=== PATIENT | female | born 1945 | race Caucasian/White ===

== ENCOUNTER → 2023-11-12 09:14 | Outpatient (REF) | payer OTHER, SELFPAY | LOC: HWRAD 09:14 | PROVIDERS: ATTENDING PHYSICIAN Obstetrics & Gynecology; FAMILY PHYSICIAN Family Medicine | DX: R19.00 Intra-abdominal and pelvic swelling, mass and lump, unspecified site (principal); K62.9 Disease of anus and rectum, unspecified | CPT/HCPCS: 74177; Q9967 ==

== ENCOUNTER → 2024-02-18 13:41 | Outpatient (REF) | payer OTHER, SELFPAY | LOC: RAD 13:41 | PROVIDERS: ATTENDING PHYSICIAN Family Medicine | DX: E66.01 Morbid (severe) obesity due to excess calories (principal); M25.469 Effusion, unspecified knee | CPT/HCPCS: 73564 ==

== ENCOUNTER → 2024-06-28 09:20 | Outpatient (REF) | payer OTHER, SELFPAY | LOC: RAD 09:20 | PROVIDERS: ATTENDING PHYSICIAN Family Medicine | DX: H53.9 Unspecified visual disturbance (principal) | CPT/HCPCS: 93880 ==

== ENCOUNTER 2024-06-29 00:32 | Inpatient (IN) | payer OTHER, SELFPAY ==
[2024-06-28 19:14] VITALS: BMI 37.5
[2024-06-28 19:17] VITALS: BP 125/77
[2024-06-28 19:55] LABS: % Basophils 0.6 % (0-2); % Eosinophils 1.7 % (0-6); % Immature Granulocytes 0.3 % (0-0.5); % Lymphocytes 18.9 % (20.5-51.1); % Monocytes 5.9 % (1.7-9.3); % Neutrophils 72.6 % (42.2-75.2); Absolute Basophils 0.1 10^3/uL (0-0.2); Absolute Eosinophils 0.2 10^3/uL (0-0.7); Absolute Lymphocytes 1.6 10^3/uL (1.2-3.4); Absolute Monocytes 0.5 10^3/uL (0.1-0.6); Absolute Neutrophils 6.3 10^3/uL (1.4-6.5); Hematocrit 42.5 % (37.0-47.0); Hemoglobin 14.2 g/dL (12.0-16.0); Mean Corp Hgb Conc. 33.4 g/dL (33.0-37.0); Mean Corpuscular Hgb 30.9 pg (27.0-31.0); Mean Corpuscular Volume 92.4 fL (81.0-99.0); Mean Platelet Volume 10.1 fL (7.4-10.4); Nucleated Red Blood Cells % 0 %; Platelet Count 261 10^3/uL (130-400); Red Cell Dist. Width 13.7 % (11.5-14.5); White Blood Cell Count 8.7 10^3/uL (4.8-10.8)
[2024-06-28 20:07] LABS: ALT (SGPT) 17 U/L (0-35); AST (SGOT) 22 U/L (14-36); Albumin 4.5 g/dl (3.5-5.0); Alkaline Phosphatase 58 U/L (38-126); Blood Urea Nitrogen 14 mg/dl (7-17); Calcium 9.5 mg/dl (8.4-10.2); Carbon Dioxide 25 mmol/L (22-30); Chloride 102 mmol/L (98-107); Glucose 145 mg/dl (70-99); Potassium 4.5 mmol/L (3.5-5.1); Sodium 141 mmol/L (135-145); Total Bilirubin 0.9 mg/dl (0.2-1.3); Total Protein 7.2 g/dl (6.3-8.2); eGFR > 60.00
[2024-06-28 20:12] LABS: Troponin I < 0.012 ng/ml
[2024-06-28 20:15] VITALS: BP 135/73
--- NOTE | 2024-06-28 20:55 | ED.GENMED ---
History of Present Illness
General
Chief Complaint: Cardiac Symptoms
Source: patient
Time Seen by Provider: 06/28/24 20:15
History of Present Illness
History of Present Illness:
79-year-old female presents to the emergency room for evaluation after having an abnormal imaging test performed as an outpatient. Patient had gone to her primary care doctor for evaluation after having an episode of vision loss in her right eye 1
week ago. Symptoms improved after a while and she has had no further recurrence. The event happened while she was at a [employer] and the pharmacist there advised her to seek care however she did not. She followed up with her primary care doctor
who ordered at urgent ultrasound of her carotid arteries. 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
Past History
Past History
ED Past Medical History: HTN, Hypercholesterolemia, Hypothyroidism and Other (TIA,)
ED Past Surgical History: Other (thyroid surgery)
Social History
Tobacco: Former smoker
Alcohol: None
Living: with family
Employment: Employed
Family History
Family History: CAD and Other (Breast cancer)
Phy Exam
Physical Exam
Physical Exam:
General: Awake, Alert, Oriented X3. No acute distress.
Vitals: unremarkable
Head: Atraumatic
Eyes: Pupils equal, EOMI
Throat: Airway intact, no exudates
Neck: Trachea midline
Lungs: Clear and equal b/l
Heart: Regular rate, no murmurs
Abd: Soft, Nontender, No pulsatile mass
Neuro: Cranial nerves intact, muscle strength equal bilaterally, cerebellar exam normal
Skin: Warm, dry, no rash
Extremities: pulses equal b/l, no edema
Course
Orders/Labs/Results
Orders:
Orders
06/28/24 19:21
Electrocardiogram (*1) Urgent
Reason for Study: Chest Pain
EKG- Treatment ONCE
06/28/24 19:40
Complete Blood Count/With Diff Urgent
Comprehensive Metabolic Panel Urgent
Troponin I Urgent
06/28/24 22:02
CT Angio Neck W/Wo Iv Contrast [CT Neck Angio W/wo Iv Contrast] Urgent
Comment:
Reason For Exam: amaurosis fugax
06/29/24 00:00
Acetaminophen [Tylenol] 1,000 mg PO NOW STA
06/29/24 00:01
Heparin Protocol- PTT Orders As Directed
PTT per Heparin protocol: -Obtain CBC and baseline PTT - if not already collected.
-Obtain PTT 6 hours from start of infusion. Then, every 6 hours until 2 consecutive
PTT's are therapeutic. Then, PTT Daily.
-With each rate change, obtain PTT every 6 hours until 2 consecutive PTT's are
therapeutic. Then, PTT Daily.
Notify MD As Directed
Notify physician if: PTT is greater than or equal to 200.
06/29/24 00:02
Admit/Transfer Patient As Directed
Co-Sign Provider:
Level of Care: Inpatient admission
Assign to:: Telemetry
Physician / Group: hospitalist
Diagnosis: inominate artery occlusion
Reason for Telemetry: CVA/TIA
Date to Stop Telemetry: 07/02/24
Time to Stop Telemetry: 11:00
Reason for Hospitalization: vascular occlusion
Expected length of stay greater than two midnights?: Yes
ELOS- Estimated Length of Stay in days: 2
I certify the patient meets the requirements for IP care: Yes
06/29/24 00:03
PRN Pain Medication Management As Directed
May give lesser potent ordered pain med per pt: Yes
preference::
Protocol:: Medication orders for pain may be administered in a
manner that supports deferring to patient preference
when the pt is:
- Requesting an ordered lesser potent pain medication.
Least to most potent pain medications are defined
as: acetaminophen < NSAID < tramadol < opioids
(morphine, oxycodone, hydromorphone).
- Requesting a lesser dose of the same medication IF
ORDERED.
- Requesting a less intrusive route of administration
if both routes are prescribed by the provider (PO <
IV).
06/29/24 00:05
Code Status As Directed
Resuscitation Status: Full Code
06/29/24 00:08
PTT Urgent
Comment: Obtain baseline before beginning heparin infusion if not already collected
06/29/24 00:15
Heparin 79263 Units/250 ml 25,000 units in 250 ml IV PER PROTOCOL
Weight to be used for heparin protocol in kilograms (kg):: 89.9
Protocol:: Vascular Surgery
PTT Goal Range to be used:: PTT 73 to 111 seconds
Order type:: Initial
INITIAL Infusion Dose (UNITS/KG/hr) & then follow protocol:: 18 units/kg/hr
Infusion Dose in UNITS/hr & then follow protocol (UNITS/hr):: 1,600
INFUSION RATE in mL/hr & then follow protocol (mL/hr):: 16
PTT less than or equal to 64 seconds:: Notify Ordering Provider. obtain orders for rate increase &
possible bolus
PTT 64.1 to 72.9 seconds:: Increase rate by 100 units/hr (+ 1 mL/hr)
PTT 73 to 111 seconds:: Target Range. No change in rate.
PTT 111.1 to 130.9 seconds:: Decrease rate by 100 units/hr (- 1 mL/hr)
PTT 131 to 199.9 seconds:: HOLD for 1 hour. Then decrease rate by 200 units/hr (- 2 mL/hr)
PTT greater than or equal to 200 seconds:: STOP INFUSION. Notify Ordering provider to obtain further orders.
Lab follow-up:: Each change, PTT q6h until 2 consecutive are therapeutic. Then PTT
daily.
06/29/24 01:43
Acetaminophen [Tylenol] 650 mg PO Q4HPRN PRN
Bisacodyl [Dulcolax] 10 mg RECTAL [id number] PRN
Docusate W/Senna [Senokot-S] 1 tablet PO BIDPRN PRN
Ondansetron Injectable [Zofran] 4 mg IV Q6HPRN PRN
Polyethylene Glycol Powder [Miralax] 17 grams PO DAILYPRN PRN
06/29/24 01:43
Vascular Surgery Consult Routine
Consulting Provider: Randy Parra III
Was physician already notified: Yes
Reason for consult: inominate artery occlusion
Heparin Protocol- PTT Orders As Directed
PTT per Heparin protocol: -Obtain CBC and baseline PTT - if not already collected.
-Obtain PTT 6 hours from start of infusion. Then, every 6 hours until 2 consecutive
PTT's are therapeutic. Then, PTT Daily.
-With each rate change, obtain PTT every 6 hours until 2 consecutive PTT's are
therapeutic. Then, PTT Daily.
Activity As Directed
Activity Level: With Assistance
Notify MD As Directed
Notify physician if: PTT is greater than or equal to 200.
Vital Signs As Directed
Frequency: Per unit guidelines
06/29/24 06:01
Basic Metabolic Panel IN AM
Magnesium IN AM
06/29/24 08:00
Levothyroxine [Synthroid] 50 mcg PO DAILY
06/29/24 18:00
Sertraline HCl [Zoloft] 100 mg PO QPM
06/29/24 22:00
Rosuvastatin Calcium [Crestor] 20 mg PO HS
07/01/24 06:00
Complete Blood Count/No Diff Q2D
Comment: Notify MD if platelet count is <130,000 or decreases by 50% from baseline
07/02/24 11:00
DC Protocol for Telemetry ONCE
07/03/24 06:00
Complete Blood Count/No Diff Q2D
Comment: Notify MD if platelet count is <130,000 or decreases by 50% from baseline
07/05/24 06:00
Complete Blood Count/No Diff Q2D
Comment: Notify MD if platelet count is <130,000 or decreases by 50% from baseline
07/07/24 06:00
Complete Blood Count/No Diff Q2D
Comment: Notify MD if platelet count is <130,000 or decreases by 50% from baseline
07/09/24 06:00
Complete Blood Count/No Diff Q2D
Comment: Notify MD if platelet count is <130,000 or decreases by 50% from baseline
07/11/24 06:00
Complete Blood Count/No Diff Q2D
Comment: Notify MD if platelet count is <130,000 or decreases by 50% from baseline
07/13/24 06:00
Complete Blood Count/No Diff Q2D
Comment: Notify MD if platelet count is <130,000 or decreases by 50% from baseline
07/15/24 06:00
Complete Blood Count/No Diff Q2D
Comment: Notify MD if platelet count is <130,000 or decreases by 50% from baseline
Abnormal Lab Results
06/28/24
19:40
Lymphocytes % 18.9 L %
(20.5-51.1)
Glucose 145 H mg/dl
(70-99)
06/28/24 19:40
06/28/24 20:54
Vital Signs
Initial and Last Documented VS:
Initial Vital Signs
Temp Pulse Resp BP Pulse Ox
98 F 96 16 125/77 98
06/28/24 19:17 06/28/24 19:17 06/28/24 19:17 06/28/24 19:17 06/28/24 19:17
Last Documented Vital Signs
Temp Pulse Resp BP Pulse Ox
97.9 F 65 16 110/56 94
06/29/24 11:13 06/29/24 11:13 06/29/24 11:13 06/29/24 11:13 06/29/24 11:13
MDM/Problems Addressed
Differential Diagnosis Includes:
Symptomatic carotid/innominate artery stenosis, giant cell arteritis, microvascular disease
MDM/Problems Addressed:
Patient had outpatient ultrasound performed due to visual changes of the right eye. This study was highly suggestive of critical stenosis. A CTA was performed here in the emergency room after consultation with vascular surgery. Vascular will
review the images. In the meantime we will start heparin in case the patient requires intervention. Oral anticoagulation will be held. Will start heparin without a bolus as she has been compliant with her Eliquis.
*Radiology
Radiology exam reviewed: radiology read reviewed
*Pulse Oximetry
Patient hypoxic: no
*EKG
Interpreted by ED Provider?: Yes
Heart Rate: 81
Rate: normal
Rhythm: sinus
Interval: first degree heart block
QRS Pattern: left bundle branch block
Ischemia: non-specific ST changes
*[employer] Interpretation
Rate: normal
Interpretation: abnormal
Rhythm: sinus
*Critical Care Note
Total Time (30-74mins, 75-104mins- exclusive of procedures): Not Applicable
Data Reviewed
Review of Other/Old Records Reveals: Radiology Studies (outpt u/s)
ED Attending Note
-
Portions of this chart may have been created with voice recognition software.� Occasional wrong word or��sound alike� substitutions may have occurred due to the inherent limitations of voice recognition software.
Discharge Plan
Departure
Patient Disposition: Admit
Date of Disposition: 06/28/24
Time of Disposition: 23:04
Presentation/result/management discussed w/ accepting MD/DO: Hospitalist
Condition: Fair
Discharge Problem:
Amaurosis fugax of right eye
Interventions
Interventions:
*Risk Screen - Suicide Last Done: 06/28/24 19:17
*General Assessment Last Done: 06/28/24 20:26
*Neglect/Abuse Screening Last Done: 06/28/24 19:17
ED- Fall Risk Assessment Last Done: 06/29/24 01:38
*ED COVID-19 Vaccine History Last Done: 06/28/24 20:18
*Nursing Disposition Last Done: 06/29/24 01:39
ED- Pulmonary Assessment Last Done: 06/28/24 20:19
ED- Cardiac Assessment Last Done: 06/28/24 20:19
Discharge Date and Time
Discharge Date/Time: 06/29/24 01:40
[2024-06-28 21:00] VITALS: BP 130/80
[2024-06-28 22:00] VITALS: BP 122/74
[2024-06-28 23:15] VITALS: BP 144/116
[2024-06-28 23:17] VITALS: BP 139/72
--- NOTE | 2024-06-28 23:49 | HPS.HSE ---
Family Physician
-
Family Physician: Nelson Hilton
Chief Complaint
-
Right eye amaurosis fugax
History of Present Illness
Is an 79-year-old female who has a past medical history that is significant for paroxysmal atrial fibrillation on anticoagulation with apixaban, hypothyroidism status post partial thyroidectomy, status post recent bladder surgery 1 year ago, obesity
and hyperlipidemia who presents to the emergency department following evaluation for vision changes.
Patient reported that 1 week ago he had an episode of transient vision loss. She reported a sensation of a great coughing covering her right eye for few minutes before resolving. Since resolving she has not had recurrence of the symptoms. Patient
reported that she has had no speech abnormalities, facial droop, tingling or weakness or numbness. She denies palpitations. She denies any recent headache. She denies any recent falls. Patient reports that she was diagnosed with TIA several
years ago and was on aspirin but aspirin discontinued when she was started on apixaban. She denies any chest pain, nausea vomiting or diaphoresis.
She had a ultrasound study of the carotids today which showed abnormally decreased velocity with abnormal waveforms throughout the right common carotid artery and the right internal carotid artery with reversal in the right vertebral artery which is
most likely related to innominate artery high-grade stenosis or occlusion. The right internal carotid stenosis present is in the range of 0 to 49%.
In the ED she is asymptomatic. Blood pressure was 130/80 with a pulse of 76. She was satting at 7% on room air. ECG shows a normal sinus rhythm with a rate of 81 left bundle branch block which is unchanged from prior. Troponin was negative. CBC
was within normal limits. Electrolytes BUN/creatinine were also normal.
She had a CTA of the neck showing high-grade stenosis versus occlusion at the origin of the innominate artery and left common carotid artery as well as the subclavian artery. She has a large amount of calcified plaque associated with the distal
innominate artery near the origin of the right common carotid artery and subclavian artery. There appears to be bilateral carotid artery disease with approximately 50% occlusion at the carotid bulb, proximal ICA bilaterally.
Medical History
Past Medical History
Past Medical History: Reports Arrhythmia (paroxysmal afib), HTN and Hypothyroidism
Past Surgical History: Reports Urological
Additional Past Surgical History:
Thyroidectomy
Social History
Tobacco: Non-smoker
Alcohol: None
Drug: None
Personal: Single
Living: Alone
Employment: Retired
Family History
Family History: Not pertinent
Allergies / Home Medications
Allergies reflects when Allergies were last updated in [employer].
Home Medications with original date entered in [employer]
Allergy/Medication List:
Allergies
Allergy/AdvReac Type Severity Reaction Status Date / Time
No Known Allergies Allergy Verified 06/28/24 19:17
Home Medications
cholecalciferol (vitamin D3) 50 mcg (2,000 unit) tablet 2,000 unit PO DAILY 10/24/14
cyanocobalamin (vitamin B-12) 1,000 mcg tablet 1,000 mcg PO DAILY 10/24/14
rosuvastatin 20 mg tablet 20 mg PO HS 09/08/16
sertraline 100 mg tablet 100 mg PO QPM 07/05/17
acetaminophen 500 mg capsule 1,000 mg PO Q6HPRN PRN mild pain 05/27/23
levothyroxine 50 mcg tablet 50 mcg PO DAILY 05/27/23
apixaban 5 mg tablet (Eliquis) 5 mg PO BID 06/28/24
magnesium oxide 500 mg PO QPM 06/28/24
Review of Systems
-
History Source: Patient
Constitutional: Reports No Symptoms
EENT: Reports No Symptoms
Respiratory: Reports No Symptoms
Cardiac: Reports No Symptoms
Abdomen/GI: Reports No Symptoms
: Reports No Symptoms
Musculoskeletal: Reports No Symptoms
Skin: Reports No Symptoms
Neurological: Reports No Symptoms
Endocrine: Reports No Symptoms
Hematologic/Lymphatic: Reports No Symptoms
Psych: Reports No Symptoms
Physical Exam
Vital Signs
Vital Signs
Temp Pulse Resp BP Pulse Ox
98.7 F 76 25 130/80 97
06/28/24 22:00 06/28/24 21:00 06/28/24 21:00 06/28/24 21:00 06/28/24 21:00
Physical Exam
General: Well Developed, Well Nourished, No Apparent Distress and Comfortable
HEENT: NormoCephalic, Anicteric, Moist mucous membranes and Atraumatic
Respiratory: Clear
Cardiac: S1/S2 and Regular Rhythm
Breast: Deferred by me
GI: Soft, Non Distended and No Hepatosplenomegaly
Rectal: Deferred by Provider
Genito-urinary: Deferred by me
Musculoskeletal: No Clubbing, No Cyanosis and No Edema
Skin: Warm
Neuro: AO x 3
Hematologic/Lymphatic: No Lymphadenopathy
Psych: Calm
Laboratory Results
-
06/28/24 19:40
06/28/24 20:54
Laboratory Results
Total Bilirubin 0.9 mg/dl (0.2-1.3) 06/28/24 19:40
AST 22 U/L (14-36) 06/28/24 19:40
ALT 17 U/L (0-35) 06/28/24 19:40
Alkaline Phosphatase 58 U/L (38-126) 06/28/24 19:40
Troponin I < 0.012 ng/ml 06/28/24 19:40
Data Reviewed
-
CT Scan: Report Reviewed by me
Ultrasound: Report Reviewed by me
Medical Tests (Nuc Med, Echo, EKG etc): Image Personally Visualized and interpreted
Old Records: Reviewed
Impression/Plan
-
IMPRESSION:
79 y.o with h/o possibly prior TIA many years ago, no history of CAD or known PAD, hypothyroid, hyperlipidemia had right eye transient vision loss and a follow up carotid u/s which showed concernt for high grade stenosis or occlusion of the
innominate artery. Patient currently asymptomatic.
PLAN:
1. 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 Vascular aware
- admit to telemetry
- last eliquis dose was 12 hours ago, will start heparin gtt w/o bolus
- continue statin
- vascular consult
- pain control
2. AFIB - paroxysmal afib found danay-operatively. No rate control agent. Sinus rhythm currently
- on heparin for now
Code status - full code
[2024-06-29] VITALS (9 sets, daily range): BP systolic 98–132; BP diastolic 43–70; BMI 36.8
[2024-06-29] MEDS: TYLENOL 1000 MG PO (00:20)
[2024-06-29] MEDS: HEPARIN 25000 UNITS/250 ML IV ×2 (00:26→17:51)
[2024-06-29 00:35] LABS: APTT 28.9 Sec (23.4-35.0)
--- NOTE | 2024-06-29 04:14 | PTCARENOTE ---
Receive pt from ER. Pt alert oriented X3, pleasant and cooperative. 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 Pt assisted to her bed, steady on her feet. Pt oriented to the room, call lozano within reach. Pt denies any visual changes, SOB, chest pain, or
numbness. NIH=0, NSR w/BBB on telemonitor. VSS (T=97.5, HR=74, RR=16, HA=903/65, SpO2=94% on RA). Hep gtt infusing at 16mL/hr. Will continue to monitor the pt.
[2024-06-29 06:24] LABS: APTT 127.7 Sec (23.4-35.0)
[2024-06-29 07:17] LABS: Blood Urea Nitrogen 12 mg/dl (7-17); Carbon Dioxide 22 mmol/L (22-30); Chloride 107 mmol/L (98-107); Estimated Creatinine Clearance 76 ml/min; Glucose 101 mg/dl (70-99); Magnesium 1.9 mg/dl (1.6-2.3); Potassium 4.2 mmol/L (3.5-5.1); Sodium 140 mmol/L (135-145); eGFR > 60.00
--- NOTE | 2024-06-29 08:38 | W.PN.HOSP.TC ---
Today's Communication/Plan
-
see bold
Assessment / Plan
Assessment / Plan
79 y.o with h/o possibly prior TIA many years ago, no history of CAD or known PAD, hypothyroid, hyperlipidemia had right eye transient vision loss and a follow up carotid u/s which showed concernt for high grade stenosis or occlusion of the
innominate artery. Patient was asymptomatic at the time of admission.
Gen: NAD, AAOx3.
Eyes: EOMI, PERRLA, no scleral icterus.
Neck: supple.
CV: RRR, +S1/S2, no m/r/g.
Resp: CTAB, no rales, wheezes, or rhonchi.
Abd: +BS, soft, NT, ND
Skin: No rashes.
Neuro: CN 2-12 intact, non-focal.
Psych: Normal mood and affect.
CTA head/neck: Limited, less than optimal examination secondary to suboptimal contrast bolus, as well as motion degradation as a result of referred pulsation artifact in the region of the aortic arch and branch vessels. This results in severe
restricted assessment of the vessel lumen and vessel patency. There appears to be severe/high-grade stenosis versus occlusion at the origin of the innominate artery and left common carotid artery, as well as the subclavian artery. Large amount of
calcified plaque associated with the distal innominate artery near the origin of the right common carotid artery and subclavian artery. The aortic arch and branch vessels would be better assessed with gated chest CT angiography.
Right carotid artery: Calcified plaque. Carotid bulb estimated at luminal diameter reduction of less than 50%. Proximal ICA estimated luminal diameter reduction of 65-70%. Limited visualization of the cavernous internal carotid artery demonstrates
large amount of calcified plaque.
Left carotid artery: Calcified plaque. Carotid bulb estimated luminal diameter reduction of greater than 50%. Proximal ICA estimated luminal diameter reduction of 55-60%. Limited visualization of the cavernous internal carotid artery demonstrates
moderate amount of calcified plaque.
Proximal left vertebral artery calcified plaque with approximately 50% luminal diameter reduction.
CUS:
1. Abnormally decreased velocity with abnormal waveforms throughout the right common carotid artery and the right internal carotid artery. Flow reversal in the right vertebral artery. These findings are most likely related to innominate artery
high-grade stenosis or occlusion. As warranted, this could be further evaluated with CT angiogram of the neck.
2. By velocity criteria, any right internal carotid artery stenosis present is in the range of 0-49%.
Vascular occlusion, high grade stenosis of inominate artery:
-c/s vascular
-see imaging above
-cont heparin gtt
-cont statin
Paroxysmal afib:
-found danay-operatively. No rate control agent. Sinus rhythm currently.
-currently on heparin gtt
Hypothyroidism:
-cont Levoxyl
FULL/Heparin gtt
Anticipated Discharge: Within 24 hours
Subjective/Interval History
-
Date of Service: June 29, 2024
Currently denies any visual deficits. Denies chest pain, shortness of breath, abdominal pain.
Objective Data
-
Labs:
Laboratory Results
06/28/24 06/29/24 06/29/24
20:54 00:08 06:01
APTT 28.9 127.7 H
Sodium Cancelled 140
Potassium Cancelled 4.2
Chloride Cancelled 107
Carbon Dioxide Cancelled 22
BUN Cancelled 12
Creatinine Cancelled 0.6
Glucose Cancelled 101 H
Calcium Cancelled 9.0
06/29/24
12:45
APTT Pending
Sodium
Potassium
Chloride
Carbon Dioxide
BUN
Creatinine
Glucose
Calcium
Vital Signs:
Vital Signs
Temp Pulse Resp BP Pulse Ox
97.8 F 62 18 132/60 96
06/29/24 07:56 06/29/24 07:56 06/29/24 07:56 06/29/24 07:56 06/29/24 07:56
[2024-06-29] MEDS: DESENEX/MITRAZOL/ZEASORB 1 APPLIC TOPICAL ×2 (08:59→19:55)
[2024-06-29] MEDS: SYNTHROID 50 MCG PO (08:59)
--- NOTE | 2024-06-29 10:48 | W.PN.VS ---
Today's Communication / Plan
-
repeat CTA
neurology consult
Assessment/Plan
-
TIA 1 week ago with vascular lesions as possible source
- neurology consult for eval and impression if symptoms are likely related to vascula lesions or other source
- need to repeat CTA chest and neck - radiology rec gated study. would repeat in am belem to allow contrast to wash out of system before rebolus
- cont hep gett for now
- spoke at length with patient and family
Subjective Data
-
Patient presented with right eye vision loss one week ago.
Had duplex of carotid which showed possible innominate occlusion and was sent to ER
no recurrent symptoms
no other neuro deficits
reports tia several years ago but does not remember symptoms
Objective Data
-
Vital Signs
Temp Pulse Resp BP Pulse Ox
97.8 F 62 18 132/60 96
06/29/24 07:56 06/29/24 07:56 06/29/24 07:56 06/29/24 07:56 06/29/24 07:56
Intake and Output
06/28/24 06/29/24 06/30/24
06:59 06:59 06:59
Other:
Number of approximated MODERATE 2
amounts of urine
Lab Results
06/28/24 19:40
06/29/24 06:01
Calcium 9.0 mg/dl (8.4-10.2) 06/29/24 06:01
Magnesium 1.9 mg/dl (1.6-2.3) 06/29/24 06:01
Total Bilirubin 0.9 mg/dl (0.2-1.3) 06/28/24 19:40
AST 22 U/L (14-36) 06/28/24 19:40
ALT 17 U/L (0-35) 06/28/24 19:40
Alkaline Phosphatase 58 U/L (38-126) 06/28/24 19:40
Total Protein 7.2 g/dl (6.3-8.2) 06/28/24 19:40
Albumin 4.5 g/dl (3.5-5.0) 06/28/24 19:40
Physical Exam
-
rrr
ctab
2+ radial pulse left
non palpable radial and brachial pulse on right
+ right femoral pulse
non palpable left femoral pulse (slight tenderness to groin)
nt,nd,soft
CT scan- motion artifact and poor contrast timing
significant TORRES stenosis - likely 70% as well as arch disease (innominate and carotid stenosis)
--- NOTE | 2024-06-29 11:01 | CON.NEURO ---
Neuro Assessment/Plan
Assessment
Abrupt onset right eye visual change with presumed diagnosis of amaurosis fugax and suggested significant stenosis of the right internal carotid artery and less significant left carotid artery although a limited quality CTA. Carotid stenosis on the
right, if present, would be symptomatic.
Of note is that the patient had a stroke in the left MCA territory, not a TIA previously in 2015.
Plan
Continue current anticoagulation with heparin IV with plans to return eventually to the use of apixaban
Check blood work for lipid profile
No indication that the patient would benefit from MRI imaging of the brain at this time
Continue current rosuvastatin dependent on next results from lipid profile
Check blood work for additional metabolic abnormalities
Would provide lorazepam prior to the patient's next CT angiogram
Consider replacement of the sertraline with alternative medication as the patient has a history of obesity which may be persistent under the use of sertraline
Will follow as needed.
Consultation
Order
Date of Consultation: 06/29/24
Requesting Provider: Hospitalist
Reason for Consult: Right eye visual change
Subjective/Objective
Subjective Data
Date of Service: June 29, 2024
Adapted from my consultation in 2015:
'69 year old female with no PMHx had 3 episodes yesterday of RLE heaviness and dragging it. each episode was approx 30 minutes. She denies any associated face or arm involvement, no h/a, dizziness, numbness/tingling in the RLE, no visual changes or
speech difficulty. She does feel completely back to normal now. Denies prior hx of similar episodes. Denies personal hx stroke/TIA> she quit smoking 3 weeks ago and has not been to a doctor in 10 plus years. She denies back pain, does c/o left sided
neck pain when she wakes up in the morning'
MRI of the brain demonstrated a number of left cortical and temporal lobe ischemic strokes. A implanted playground monitor was provided subsequently, carotid ultrasound failed to demonstrate significant stenosis and the patient underwent
transesophageal echocardiogram which showed complex plaque in the descending aorta without evidence of a atrial septal defect. Patient at that time was advised to utilize aspirin and atorvastatin.
As per medical records, on June 20, 2024 the patient began experiencing an episode of right upper lid discomfort and blurred vision (coming down over vision) lasting approximately 15 minutes before spontaneously resolving.
She met with her sales and service specialist on 06/22/2024 diagnosis of amaurosis fugax was suggested, leading to her presenting to this hospital's emergency department on 06/28/2024. Reason for presentation to the emergency department was a suggestion of a
critical stenosis by carotid ultrasound.
No new events, no known modifying factors.
Objective Data
Vital Signs
Temp Pulse Resp BP Pulse Ox
36.6 C 62 18 132/60 96
06/29/24 07:56 06/29/24 07:56 06/29/24 07:56 06/29/24 07:56 06/29/24 07:56
Lab Results
06/28/24 19:40
06/29/24 06:01
APTT 127.7 Sec (23.4-35.0) H 06/29/24 06:01
Sodium 140 mmol/L (135-145) 06/29/24 06:01
Potassium 4.2 mmol/L (3.5-5.1) 06/29/24 06:01
BUN 12 mg/dl (7-17) 06/29/24 06:01
Glucose 101 mg/dl (70-99) H 06/29/24 06:01
Calcium 9.0 mg/dl (8.4-10.2) 06/29/24 06:01
Patient Allergies
No Known Allergies Allergy (Verified 06/28/24 19:17)
Review of Systems
-
History Source: Patient
All other systems: Reviewed and negative
EENT: Negative Decreased Vision, Hearing Loss or Swallowing Difficulty
Respiratory: Negative Trouble Breathing
Cardiac: Negative Chest Pain
Abdomen/GI: Negative Incontinence of Stool
Genitourinary: Incontinence
Musculoskeletal: Back Pain and Neck Pain
Neuro: Negative Dizzy or Headache
Physical Exam
-
General: No Apparent Distress and Appears Stated Age
Eyes: Round OU, Gerald Conjunctivae and No Ptosis
HEENT: Anicteric and Moist Mucous Membranes
Neck: Full Range of Motion
Respiratory: No Dyspnea
Cardiac: No JVD
GI: Non-distended
Skin: Unremarkable
Extremities: No Clubbing, No Cyanosis and No Edema
Psych: Intact Judgement/Insight
Extended Neurological Exam
Mood & Affect: Mood Unremarkable and Affect Unremarkable
Attention Span & Concentration: Awake, Alert, Interactive and Mild Difficulty with 2 Step Request
Memory: Unremarkable
Tremor: Hand Tremor Absent and Head Tremor Absent
Speech: Quality Unremarkable and Quantity Unremarkable
Cranial Nerve II: Left Eye: Pupillary Reactivity Unremarkable, Pupillary Size Unremarkable and Visual [place] Intact
Cranial Nerve II: Right Eye: Pupillary Reactivity Unremarkable, Pupillary Size Unremarkable and Visual [place] Intact
Cranial Nerves III, IV, : Extraocular Movement: Extraocular Movement Full in all Directions
Cranial Nerve VII: Facial Symmetry: Normal Facial Symmetry
Cranial Nerve VIII: Hearing: Unremarkable Hearing to Normal Conversational Volume
Cranial Nerves IX, X: Palate Movement: Palate Elevation Symmetric
Cranial Nerve XI: Shoulder Shrug: Unremarkable
Cranial Nerve XII: Tongue Protusion: Midline
Muscle Strength, Overall: Full Throughout
Muscle Bulk & Tone: Bulk Unremarkable and Tone Unremarkable
Pronator Drift: No Drift in Upper Extremities
Deep Tendon Reflexes: Unremarkable Throughout
Touch Sensation: Unremarkable
Coordination: [id number] Testing Unremarkable
Babinski Sign: Absent Bilaterally
Data Reviewed
-
CT-A: Report Reviewed
Carotid Ultrasound: Report Reviewed
Labs: Report Reviewed
Lipid Profile: Ordered
Reviewed with: Physician
Old Records: Summarized
Medications
-
Active Medications
Generic Name Dose Route Start Last Admin
Trade Name Freq PRN Reason Stop Dose Admin
Acetaminophen 650 mg 06/29/24 01:43
Acetaminophen 325 Mg Tablet PO 07/27/24 01:42
Q4HPRN PRN
mild pain/GILLETTE/temp> 100.4F
Bisacodyl 10 mg 06/29/24 01:43
Bisacodyl 10 Mg Rectal Suppository RECTAL 07/27/24 01:42
[id number] PRN
constipation
Heparin Sodium 25,000 units in 250 mls @ 0 mls/hr 06/29/24 00:15 06/29/24 00:26
Heparin 95630 Units/250 Ml IV 250 mls
PER PROTOCOL MARLO Administration
Protocol
Per Protocol
Levothyroxine Sodium 50 mcg 06/29/24 08:00 06/29/24 08:59
Levothyroxine 50 Mcg Tablet PO 07/27/24 07:59 50 mcg
DAILY MARLO Administration
Miconazole Nitrate 0 applic 06/29/24 08:00 06/29/24 08:59
Miconazole Powder Bottle TOPICAL 07/27/24 07:59 1 applic
BID MARLO Administration
Ondansetron HCl 4 mg 06/29/24 01:43
Ondansetron 4 Mg/2 Ml Vial IV 07/27/24 01:42
Q6HPRN PRN
nausea and vomiting
Polyethylene Glycol 17 grams 06/29/24 01:43
Polyethylene Glycol Powder 17 Grams Packet PO 07/27/24 01:42
DAILYPRN PRN
constipation
Rosuvastatin Calcium 20 mg 06/29/24 22:00
Rosuvastatin (Crestor) 20 Mg Tablet PO 07/27/24 21:59
HS MARLO
Senna/Docusate Sodium 1 tablet 06/29/24 01:43
Docusate W/Senna (Ina-Colace) Tablet PO 07/27/24 01:42
BIDPRN PRN
constipation
Sertraline HCl 100 mg 06/29/24 18:00
Sertraline 100 Mg Tablet PO 07/27/24 17:59
QPM MARLO
Sodium Chloride 0 flush 06/29/24 02:00
Sodium Chloride 0.9% (Flush) Syringe IV 07/27/24 01:59
PER PROTOCOL MARLO
Home Medications
�Medication �Instructions �Recorded
cholecalciferol (vitamin D3) 50 2,000 unit PO DAILY 10/24/14
mcg (2,000 unit) tablet
cyanocobalamin (vitamin B-12) 1,000 mcg PO DAILY 10/24/14
1,000 mcg tablet
rosuvastatin 20 mg tablet 20 mg PO HS 09/08/16
sertraline 100 mg tablet 100 mg PO QPM 07/05/17
acetaminophen 500 mg capsule 1,000 mg PO Q6HPRN PRN mild pain 05/27/23
levothyroxine 50 mcg tablet 50 mcg PO DAILY 05/27/23
apixaban 5 mg tablet (Eliquis) 5 mg PO BID 06/28/24
magnesium oxide 500 mg PO QPM 06/28/24
Past History
Past History
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
ED Past Surgical History: Gynecological (Robotic assisted hysterectomy left salpingo oophorectomy, lysis of adhesions 2022), Orthopedic (Right knee replacement), Urological (Bladder surgery 2023) and Other (thyroid surgery 2015, implantable cardiac
monitor 2015 removed 2017)
Social History
Tobacco: Former smoker (Quit 2015)
Alcohol: None
Living: with family
Family History
Family History: CAD and Other (Breast cancer)
--- NOTE | 2024-06-29 12:00 | PTCARENOTE ---
pt c/o of ' feeling her heart beat in her back, like palpitations' when lying flat, Goes away when she changes positions. Remains NSR on tele, VSS made aware, on heparin gtt, plan of care continues
[2024-06-29 12:53] LABS: APTT 135.6 Sec (23.4-35.0)
[2024-06-29 13:16] LABS: Erythrocyte Sed Rate 16 mm/hour (0-20)
[2024-06-29 13:56] LABS: TSH Reflex To Free T4 3.32 uIU/ml (0.47-4.68)
[2024-06-29 14:00] LABS: Ferritin 17.8 ng/ml (11.1-264.0)
[2024-06-29 14:32] LABS: Folate 14.6 ng/ml (2.76-20); Vitamin B12 890 pg/ml (239-931)
[2024-06-29] MEDS: ZOLOFT 100 MG PO (17:51)
[2024-06-29] MEDS: TYLENOL 650 MG PO (17:56)
[2024-06-29] MEDS: CRESTOR 20 MG PO (20:20)
[2024-06-29 20:25] LABS: APTT 84.6 Sec (23.4-35.0)
[2024-06-30 03:11] LABS: APTT 107.4 Sec (23.4-35.0)
[2024-06-30 03:25] VITALS: BP 132/57
--- NOTE | 2024-06-30 06:05 | W.PN.VS ---
Today's Communication / Plan
-
cta
card for preop eval
Assessment/Plan
-
TIA 1 week ago with vascular lesions as possible source
- neurology consult for eval - they feel tia is symtomatic from carotid - need to determine what revasc would be appropriate
- need to repeat CTA chest and neck - radiology rec gated study. would repeat in am - ordered
- cont hep gett for now
- cards eval for preop clearance
Subjective Data
-
Date of Service: June 30, 2024
stable
no new symptoms
slept well
Objective Data
-
Vital Signs
Temp Pulse Resp BP Pulse Ox
97.6 F 66 16 132/57 96
06/30/24 03:25 06/30/24 03:25 06/30/24 03:25 06/30/24 03:25 06/30/24 03:25
Intake and Output
06/28/24 06/29/24 06/30/24
06:59 06:59 06:59
Intake Total 930 / 930
Balance 930 / 930
Intake:
Oral fluids 930 / 930
Other:
Number of approximated MODERATE 2 2
amounts of urine
Number of approximated LARGE 2
amounts of urine
Lab Results
06/28/24 19:40
06/29/24 06:01
Calcium 9.0 mg/dl (8.4-10.2) 06/29/24 06:01
Magnesium 1.9 mg/dl (1.6-2.3) 06/29/24 06:01
Total Bilirubin 0.9 mg/dl (0.2-1.3) 06/28/24 19:40
AST 22 U/L (14-36) 06/28/24 19:40
ALT 17 U/L (0-35) 06/28/24 19:40
Alkaline Phosphatase 58 U/L (38-126) 06/28/24 19:40
Total Protein 7.2 g/dl (6.3-8.2) 06/28/24 19:40
Albumin 4.5 g/dl (3.5-5.0) 06/28/24 19:40
Physical Exam
-
rrr
ctab
nt,nd,soft
no radial pulse right side
[2024-06-30] MEDS: ATIVAN 1 MG PO (06:12)
--- NOTE | 2024-06-30 06:15 | CON.VAS ---
Consultation
Consultation Request
Performing Provider: Denzel Eduardo MD dictaed by ALEJANDRINA Melton
Reason for Consultation: TIA
Medical History
-
Chief Complaint: Transit Right eye vision loss
History of Present Illness:
This is an 79 year old female with significant past medical history of atrial fibrillation, hypothyroidism, hypertension, and hypercholesterolemia who presented with right eye vision loss one week ago. Had duplex of carotid which showed possible
innominate occlusion and was sent to ER no recurrent symptoms. No other neuro deficits. Reports TIA several years ago but does not remember symptoms.
Past Medical History
Past Medical History: Arrhythmias (Atrial fibrillation), HTN, Hypercholesterolemia and Hypothyroidism
Past Surgical History: Urological
Allergies / Home Medications
Allergy/AdvReac Type Severity Reaction Status Date / Time
No Known Allergies Allergy Verified 06/28/24 19:17
�Medication �Instructions �Recorded �Confirmed �Type
cholecalciferol (vitamin D3) 50 2,000 unit PO DAILY Supplement 10/24/14 06/28/24 History
mcg (2,000 unit) tablet
cyanocobalamin (vitamin B-12) 1,000 mcg PO DAILY Supplement 10/24/14 06/28/24 History
1,000 mcg tablet
rosuvastatin 20 mg tablet 20 mg PO HS High Cholesterol 09/08/16 06/28/24 History
sertraline 100 mg tablet 100 mg PO QPM Depression 07/05/17 06/28/24 History
acetaminophen 500 mg capsule 1,000 mg PO Q6HPRN PRN mild pain 05/27/23 06/28/24 History
levothyroxine 50 mcg tablet 50 mcg PO DAILY Thyroid 05/27/23 06/28/24 History
apixaban 5 mg tablet (Eliquis) 5 mg PO BID Blood Clot 06/28/24 06/28/24 History
Prevention/Tx
magnesium oxide 500 mg PO QPM Supplement 06/28/24 06/28/24 History
Review of Systems
-
History Source: Patient
All other systems: Negative unless noted
Physical Exam
Vital Signs
Temp Pulse Resp BP Pulse Ox
97.6 F 77 18 107/54 96
06/30/24 11:49 06/30/24 11:49 06/30/24 11:49 06/30/24 11:49 06/30/24 11:49
Lab Results
06/30/24 10:40
06/29/24 06:01
Troponin I < 0.012 ng/ml 06/28/24 19:40
Physical Exam
Respiratory: Non Labored Respirations
Cardiac: Regular Rhythm
GI: Soft, Non Tender and Non Distended
Musculoskeletal: Other (2+ radial pulse left, non palpable radial and brachial pulse on right)
Pulses: Right Femoral: +2 (non palpable left femoral pulse (slight tenderness to groin))
Assessment / Plan
-
TIA 1 week ago with vascular lesions as possible source
- neurology consult for eval - they feel tia is symtomatic from carotid - need to determine what revasc would be appropriate
- need to repeat CTA chest and neck - radiology rec gated study. would repeat in am - ordered
- cont hep gett for now
- cards eval for preop clearance
[2024-06-30 07:01] VITALS: BP 99/48
[2024-06-30] MEDS: DESENEX/MITRAZOL/ZEASORB 1 APPLIC TOPICAL ×2 (08:14→20:36)
[2024-06-30] MEDS: SYNTHROID 50 MCG PO (08:14)
--- NOTE | 2024-06-30 09:52 | W.PN.HOSP.TC ---
Today's Communication/Plan
-
See bold
Assessment / Plan
Assessment / Plan
79 y.o with h/o possibly prior TIA many years ago, no history of CAD or known PAD, hypothyroid, hyperlipidemia had right eye transient vision loss and a follow up carotid u/s which showed concernt for high grade stenosis or occlusion of the
innominate artery. Patient was asymptomatic at the time of admission.
Gen: Remains NAD, AAOx3.
Eyes: EOMI, PERRLA, no scleral icterus.
Neck: supple.
CV: Remains RRR, +S1/S2, no m/r/g.
Resp: Remains CTAB, no rales, wheezes, or rhonchi.
Abd: +BS, soft, NT, ND
Skin: No rashes.
Neuro: CN 2-12 intact, non-focal.
Psych: Normal mood and affect.
CTA head/neck: Limited, less than optimal examination secondary to suboptimal contrast bolus, as well as motion degradation as a result of referred pulsation artifact in the region of the aortic arch and branch vessels. This results in severe
restricted assessment of the vessel lumen and vessel patency. There appears to be severe/high-grade stenosis versus occlusion at the origin of the innominate artery and left common carotid artery, as well as the subclavian artery. Large amount of
calcified plaque associated with the distal innominate artery near the origin of the right common carotid artery and subclavian artery. The aortic arch and branch vessels would be better assessed with gated chest CT angiography.
Right carotid artery: Calcified plaque. Carotid bulb estimated at luminal diameter reduction of less than 50%. Proximal ICA estimated luminal diameter reduction of 65-70%. Limited visualization of the cavernous internal carotid artery demonstrates
large amount of calcified plaque.
Left carotid artery: Calcified plaque. Carotid bulb estimated luminal diameter reduction of greater than 50%. Proximal ICA estimated luminal diameter reduction of 55-60%. Limited visualization of the cavernous internal carotid artery demonstrates
moderate amount of calcified plaque.
Proximal left vertebral artery calcified plaque with approximately 50% luminal diameter reduction.
CUS:
1. Abnormally decreased velocity with abnormal waveforms throughout the right common carotid artery and the right internal carotid artery. Flow reversal in the right vertebral artery. These findings are most likely related to innominate artery
high-grade stenosis or occlusion. As warranted, this could be further evaluated with CT angiogram of the neck.
2. By velocity criteria, any right internal carotid artery stenosis present is in the range of 0-49%.
Vascular occlusion, high grade stenosis of inominate artery:
-Vascular and neurology following
-cont heparin gtt for now
-repeat CTA head/neck pending
-cont statin
Paroxysmal afib:
-found danay-operatively. No rate control agent. Sinus rhythm currently.
-currently on heparin gtt
Hypothyroidism:
-cont Levoxyl
FULL/Heparin gtt
Anticipated Discharge: Within 24 hours
Subjective/Interval History
-
Date of Service: June 30, 2024
Denies chest pain or shortness of breath. Denies any loss of vision over the last 24 hours.
Objective Data
-
Labs:
Laboratory Results
06/30/24
02:33
APTT 107.4 H
Vital Signs:
Vital Signs
Temp Pulse Resp BP Pulse Ox
98.3 F 66 18 99/48 94
06/30/24 07:01 06/30/24 07:01 06/30/24 07:01 06/30/24 07:01 06/30/24 07:01
I&O
06/29/24 06/30/24 07/01/24
06:59 06:59 06:59
Intake Total 930 / 930
Balance 930 / 930
[2024-06-30 11:06] LABS: Hematocrit 38.4 % (37.0-47.0); Hemoglobin 12.5 g/dL (12.0-16.0); Mean Corp Hgb Conc. 32.6 g/dL (33.0-37.0); Mean Corpuscular Hgb 30.4 pg (27.0-31.0); Mean Corpuscular Volume 93.4 fL (81.0-99.0); Platelet Count 189 10^3/uL (130-400); Red Blood Cell Count 4.11 10^6/uL (4.20-5.40); Red Cell Dist. Width 13.6 % (11.5-14.5); White Blood Cell Count 5.5 10^3/uL (4.8-10.8)
[2024-06-30 11:10] LABS: APTT 108.8 Sec (23.4-35.0)
[2024-06-30 11:49] VITALS: BP 107/54
[2024-06-30] MEDS: HEPARIN 25000 UNITS/250 ML IV (13:16)
[2024-06-30 15:28] VITALS: BP 93/59
--- NOTE | 2024-06-30 16:26 | CM ---
Alert awake oriented patient who lives alone in a one story home with no steps to enter.She is independent in driving and in all activities of daily living.Offered VN she declined.
No adaptive devices
Had DH VN HX / No SNF
[facility]
PCP Dr Hilton
PLAN Home no needs
[2024-06-30] MEDS: ZOLOFT 100 MG PO (18:30)
[2024-06-30 19:30] VITALS: BP 128/68
[2024-06-30] MEDS: CRESTOR 20 MG PO (20:36)
[2024-06-30] MEDS: SENOKOT-S 1 TABLET PO (20:36)
[2024-06-30 23:56] VITALS: BP 117/53
[2024-07-01 03:08] VITALS: BP 126/51
[2024-07-01] MEDS: TYLENOL 650 MG PO (04:40)
[2024-07-01 06:47] LABS: Hematocrit 38.3 % (37.0-47.0); Hemoglobin 12.2 g/dL (12.0-16.0); Mean Corp Hgb Conc. 31.9 g/dL (33.0-37.0); Mean Corpuscular Hgb 30.7 pg (27.0-31.0); Mean Corpuscular Volume 96.5 fL (81.0-99.0); Mean Platelet Volume 10.3 fL (7.4-10.4); Platelet Count 202 10^3/uL (130-400); Red Blood Cell Count 3.97 10^6/uL (4.20-5.40); Red Cell Dist. Width 13.6 % (11.5-14.5); White Blood Cell Count 5.4 10^3/uL (4.8-10.8)
[2024-07-01 06:53] LABS: APTT 111.8 Sec (23.4-35.0)
[2024-07-01 07:00] VITALS: BP 106/50
--- NOTE | 2024-07-01 08:06 | W.PN.HOSP.TC ---
Today's Communication/Plan
-
see bold
Assessment / Plan
Assessment / Plan
79 y.o with h/o possibly prior TIA many years ago, no history of CAD or known PAD, hypothyroid, hyperlipidemia had right eye transient vision loss and a follow up carotid u/s which showed concernt for high grade stenosis or occlusion of the
innominate artery. Patient was asymptomatic at the time of admission.
Gen: Continues to remain NAD, AAOx3.
Eyes: EOMI, PERRLA, no scleral icterus.
Neck: supple.
CV: Continues to remain RRR, +S1/S2, no m/r/g.
Resp: Continues to remain CTAB, no rales, wheezes, or rhonchi.
Abd: +BS, soft, NT, ND
Skin: No rashes.
Neuro: CN 2-12 intact, non-focal.
Psych: Normal mood and affect.
CTA head/neck: Limited, less than optimal examination secondary to suboptimal contrast bolus, as well as motion degradation as a result of referred pulsation artifact in the region of the aortic arch and branch vessels. This results in severe
restricted assessment of the vessel lumen and vessel patency. There appears to be severe/high-grade stenosis versus occlusion at the origin of the innominate artery and left common carotid artery, as well as the subclavian artery. Large amount of
calcified plaque associated with the distal innominate artery near the origin of the right common carotid artery and subclavian artery. The aortic arch and branch vessels would be better assessed with gated chest CT angiography.
Right carotid artery: Calcified plaque. Carotid bulb estimated at luminal diameter reduction of less than 50%. Proximal ICA estimated luminal diameter reduction of 65-70%. Limited visualization of the cavernous internal carotid artery demonstrates
large amount of calcified plaque.
Left carotid artery: Calcified plaque. Carotid bulb estimated luminal diameter reduction of greater than 50%. Proximal ICA estimated luminal diameter reduction of 55-60%. Limited visualization of the cavernous internal carotid artery demonstrates
moderate amount of calcified plaque.
Proximal left vertebral artery calcified plaque with approximately 50% luminal diameter reduction.
CUS:
1. Abnormally decreased velocity with abnormal waveforms throughout the right common carotid artery and the right internal carotid artery. Flow reversal in the right vertebral artery. These findings are most likely related to innominate artery
high-grade stenosis or occlusion. As warranted, this could be further evaluated with CT angiogram of the neck.
2. By velocity criteria, any right internal carotid artery stenosis present is in the range of 0-49%.
CTA chest:
1. No aortic aneurysm or dissection. There is high-grade stenosis/near complete occlusion of the ostium of the innominate and and left subclavian arteries. There is atherosclerotic calcification at the ostium of the left common carotid artery with
associated moderate stenosis.
2. Coronary artery calcifications.
CTA neck 06/30/24: There is mixed density atherosclerotic plaque of the proximal right common carotid artery with associated high-grade/severe stenosis. Atherosclerotic calcifications of the right carotid bifurcation/proximal ICA with resultant
approximately 40% stenosis by NASCET criteria. The right vertebral artery is diminutive throughout its course with a left dominant vertebral artery. The left vertebral artery demonstrates mild/moderate stenosis at the ostium secondary to calcified
atherosclerotic plaque. Visualized intracranial vessels appear patent without significant stenosis.
Vascular occlusion, high grade stenosis of R common carotid/inominate arteries:
-Vascular and neurology following
-TIA 1 week [employer], likely symptomatic from R ICA atherosclerotic disease
-cont heparin gtt
-R carotid angiogram on 07/03
-cont statin
Paroxysmal afib:
-found danay-operatively. No rate control agent. Sinus rhythm currently.
-currently on heparin gtt
Hypothyroidism:
-cont Levoxyl
FULL/Heparin gtt
Anticipated Discharge: > 48 hours
Subjective/Interval History
-
Date of Service: July 01, 2024
No new complaints
Objective Data
-
Labs:
Laboratory Results
07/01/24 07/01/24
05:39 13:20
WBC 5.4
Hgb 12.2
Hct 38.3
Plt Count 202
APTT 111.8 H Pending
Vital Signs:
Vital Signs
Temp Pulse Resp BP Pulse Ox
97.5 F 62 20 126/51 94
07/01/24 03:08 07/01/24 03:08 07/01/24 03:08 07/01/24 03:08 07/01/24 03:08
I&O
06/30/24 07/01/24 07/02/24
06:59 06:59 06:59
Intake Total 930 / 930 876 / 876
Balance 930 / 930 876 / 876
[2024-07-01] MEDS: SYNTHROID 50 MCG PO (08:18)
[2024-07-01] MEDS: HEPARIN 25000 UNITS/250 ML IV (08:18)
--- NOTE | 2024-07-01 08:18 | W.PN.VS ---
Today's Communication / Plan
-
Seen and assessed by Dr. Eduardo
Assessment/Plan
-
TIA 1 week ago with vascular lesions as possible source
- cont hep gtt for now
- cards eval for preop clearance
- Arteriogram Wednesday discussed at bedside with daughter via telephone
Subjective Data
-
Date of Service: July 01, 2024
Patient seen at bedside this a.m with Dr. Eduardo. No events overnight. No complaints at this time.
Objective Data
-
Vital Signs
Temp Pulse Resp BP Pulse Ox
97.5 F 62 20 126/51 94
07/01/24 03:08 07/01/24 03:08 07/01/24 03:08 07/01/24 03:08 07/01/24 03:08
Intake and Output
06/30/24 07/01/24 07/02/24
06:59 06:59 06:59
Intake Total 930 / 930 876 / 876
Balance 930 / 930 876 / 876
Intake:
Oral fluids 930 / 930 720 / 720
IV fluids (Total) 156 / 156
Other:
Number of approximated MODERATE 2 3
amounts of urine
Number of approximated LARGE 2
amounts of urine
Lab Results
07/01/24 05:39
06/29/24 06:01
Calcium 9.0 mg/dl (8.4-10.2) 06/29/24 06:01
Magnesium 1.9 mg/dl (1.6-2.3) 06/29/24 06:01
Total Bilirubin 0.9 mg/dl (0.2-1.3) 06/28/24 19:40
AST 22 U/L (14-36) 06/28/24 19:40
ALT 17 U/L (0-35) 06/28/24 19:40
Alkaline Phosphatase 58 U/L (38-126) 06/28/24 19:40
Total Protein 7.2 g/dl (6.3-8.2) 06/28/24 19:40
Albumin 4.5 g/dl (3.5-5.0) 06/28/24 19:40
Physical Exam
-
AAOx3
No tachypnea
No tachycardia
Abdomen soft
2+ radial pulse left
non palpable radial and brachial pulse on right
+ right femoral pulse
non palpable left femoral pulse (slight tenderness to groin)
significant TORRES stenosis - likely 70% as well as arch disease (innominate and carotid stenosis)
[2024-07-01] MEDS: DESENEX/MITRAZOL/ZEASORB 1 APPLIC TOPICAL ×2 (08:22→20:07)
[2024-07-01] MEDS: SENOKOT-S 1 TABLET PO (08:37)
[2024-07-01 11:00] VITALS: BP 119/57
--- NOTE | 2024-07-01 11:44 | CM ---
KADY met with Joann at bedside. She is in good spirits; was getting along well with roommate who was discharged today.
Plan for arteriogram on Wednesday to evaluate possible high grade stenosis or occlusion of the innominate artery. No plan for discharge pending further testing.
KADY will continue to follow for all discharge planning needs.
[2024-07-01] MEDS: TYLENOL 1000 MG PO ×2 (13:29→21:29)
[2024-07-01 14:02] LABS: APTT 91.7 Sec (23.4-35.0)
[2024-07-01 15:00] VITALS: BP 109/50
[2024-07-01] MEDS: ZOLOFT 100 MG PO (17:33)
[2024-07-01 19:44] VITALS: BP 130/61
[2024-07-01] MEDS: CRESTOR 20 MG PO (20:07)
[2024-07-01 20:42] LABS: APTT 83.9 Sec (23.4-35.0)
[2024-07-01 23:02] VITALS: BP 129/63
[2024-07-02] VITALS (7 sets, daily range): BP systolic 99–131; BP diastolic 53–69
[2024-07-02] MEDS: HEPARIN 25000 UNITS/250 ML IV (06:22)
[2024-07-02] MEDS: TYLENOL 1000 MG PO (06:25)
--- NOTE | 2024-07-02 07:14 | W.PN.VS ---
Today's Communication / Plan
-
plan for arch and cerebral agram
unclear that symptoms are clearly related to carotid and innominate artery disease
npo post midnight for agram belem
iv hydration
Assessment/Plan
-
TIA 1 week ago with vascular lesions as possible source
- cont hep gtt for now
- cards eval for preop clearance
- Arteriogram Wednesday discussed at bedside with daughter via telephone
plan for arch and cerebral agram
unclear that symptoms are clearly related to carotid and innominate artery disease
npo post midnight for agram belem
iv hydration
Subjective Data
-
Date of Service: July 02, 2024
Objective Data
-
Vital Signs
Temp Pulse Resp BP Pulse Ox
97.9 F 62 20 119/53 96
07/02/24 03:21 07/02/24 03:21 07/02/24 03:21 07/02/24 03:21 07/02/24 03:21
Intake and Output
07/01/24 07/02/24 07/03/24
06:59 06:59 06:59
Intake Total 876 / 876 660 / 660
Balance 876 / 876 660 / 660
Intake:
Oral fluids 720 / 720 660 / 660
IV fluids (Total) 156 / 156
Other:
Number of approximated MODERATE 3 3
amounts of urine
Lab Results
06/29/24 06:01
Calcium 9.0 mg/dl (8.4-10.2) 06/29/24 06:01
Magnesium 1.9 mg/dl (1.6-2.3) 06/29/24 06:01
Total Bilirubin 0.9 mg/dl (0.2-1.3) 06/28/24 19:40
AST 22 U/L (14-36) 06/28/24 19:40
ALT 17 U/L (0-35) 06/28/24 19:40
Alkaline Phosphatase 58 U/L (38-126) 06/28/24 19:40
Total Protein 7.2 g/dl (6.3-8.2) 06/28/24 19:40
Albumin 4.5 g/dl (3.5-5.0) 06/28/24 19:40
[2024-07-02 08:44] LABS: Hematocrit 37.4 % (37.0-47.0); Hemoglobin 12.4 g/dL (12.0-16.0); Mean Corp Hgb Conc. 33.2 g/dL (33.0-37.0); Mean Corpuscular Hgb 31.2 pg (27.0-31.0); Mean Platelet Volume 10.6 fL (7.4-10.4); Platelet Count 187 10^3/uL (130-400); Red Blood Cell Count 3.98 10^6/uL (4.20-5.40); Red Cell Dist. Width 13.5 % (11.5-14.5); White Blood Cell Count 5.4 10^3/uL (4.8-10.8)
[2024-07-02 08:52] LABS: APTT 82.8 Sec (23.4-35.0)
[2024-07-02] MEDS: DESENEX/MITRAZOL/ZEASORB 1 APPLIC TOPICAL ×2 (09:24→21:18)
[2024-07-02] MEDS: SYNTHROID 50 MCG PO (09:24)
--- NOTE | 2024-07-02 10:15 | W.PN.HOSP.TC ---
Today's Communication/Plan
-
see bold
Assessment / Plan
Assessment / Plan
79 y.o with h/o possibly prior TIA many years ago, no history of CAD or known PAD, hypothyroid, hyperlipidemia had right eye transient vision loss and a follow up carotid u/s which showed concernt for high grade stenosis or occlusion of the
innominate artery. Patient was asymptomatic at the time of admission.
Gen: NAD, AAOx3.
Eyes: EOMI, PERRLA, no scleral icterus.
Neck: supple.
CV: RRR, +S1/S2, no m/r/g.
Resp: CTAB, no rales, wheezes, or rhonchi.
Abd: +BS, soft, NT, ND
Skin: No rashes.
Neuro: CN 2-12 intact, non-focal.
Psych: Normal mood and affect.
CTA head/neck: Limited, less than optimal examination secondary to suboptimal contrast bolus, as well as motion degradation as a result of referred pulsation artifact in the region of the aortic arch and branch vessels. This results in severe
restricted assessment of the vessel lumen and vessel patency. There appears to be severe/high-grade stenosis versus occlusion at the origin of the innominate artery and left common carotid artery, as well as the subclavian artery. Large amount of
calcified plaque associated with the distal innominate artery near the origin of the right common carotid artery and subclavian artery. The aortic arch and branch vessels would be better assessed with gated chest CT angiography.
Right carotid artery: Calcified plaque. Carotid bulb estimated at luminal diameter reduction of less than 50%. Proximal ICA estimated luminal diameter reduction of 65-70%. Limited visualization of the cavernous internal carotid artery demonstrates
large amount of calcified plaque.
Left carotid artery: Calcified plaque. Carotid bulb estimated luminal diameter reduction of greater than 50%. Proximal ICA estimated luminal diameter reduction of 55-60%. Limited visualization of the cavernous internal carotid artery demonstrates
moderate amount of calcified plaque.
Proximal left vertebral artery calcified plaque with approximately 50% luminal diameter reduction.
CUS:
1. Abnormally decreased velocity with abnormal waveforms throughout the right common carotid artery and the right internal carotid artery. Flow reversal in the right vertebral artery. These findings are most likely related to innominate artery
high-grade stenosis or occlusion. As warranted, this could be further evaluated with CT angiogram of the neck.
2. By velocity criteria, any right internal carotid artery stenosis present is in the range of 0-49%.
CTA chest:
1. No aortic aneurysm or dissection. There is high-grade stenosis/near complete occlusion of the ostium of the innominate and and left subclavian arteries. There is atherosclerotic calcification at the ostium of the left common carotid artery with
associated moderate stenosis.
2. Coronary artery calcifications.
CTA neck 06/30/24: There is mixed density atherosclerotic plaque of the proximal right common carotid artery with associated high-grade/severe stenosis. Atherosclerotic calcifications of the right carotid bifurcation/proximal ICA with resultant
approximately 40% stenosis by NASCET criteria. The right vertebral artery is diminutive throughout its course with a left dominant vertebral artery. The left vertebral artery demonstrates mild/moderate stenosis at the ostium secondary to calcified
atherosclerotic plaque. Visualized intracranial vessels appear patent without significant stenosis.
Vascular occlusion, high grade stenosis of R common carotid/inominate arteries:
-Vascular and neurology following
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
-cont heparin gtt
-R carotid angiogram on 07/03
-cont statin
Paroxysmal afib:
-found danay-operatively. No rate control agent. Sinus rhythm currently.
-currently on heparin gtt
Hypothyroidism:
-cont Levoxyl
FULL/Heparin gtt
Anticipated Discharge: 24 - 48 hours
Subjective/Interval History
-
Date of Service: July 02, 2024
No new complaints.
Objective Data
-
Labs:
Laboratory Results
07/02/24
06:37
WBC 5.4
Hgb 12.4
Hct 37.4
Plt Count 187
APTT 82.8 H
Vital Signs:
Vital Signs
Temp Pulse Resp BP Pulse Ox
97.8 F 68 16 115/61 97
07/02/24 07:00 07/02/24 07:00 07/02/24 07:00 07/02/24 07:00 07/02/24 07:00
I&O
07/01/24 07/02/24 07/03/24
06:59 06:59 06:59
Intake Total 876 / 876 660 / 660
Balance 876 / 876 660 / 660
[2024-07-02] MEDS: ZOLOFT 100 MG PO (17:27)
[2024-07-02] MEDS: CRESTOR 20 MG PO (21:19)
[2024-07-03 03:44] VITALS: BP 118/60
[2024-07-03] MEDS: HEPARIN 25000 UNITS/250 ML IV ×2 (06:06→23:07)
[2024-07-03 08:05] VITALS: BP 128/63
[2024-07-03] MEDS: SYNTHROID 50 MCG PO (09:33)
[2024-07-03] MEDS: DESENEX/MITRAZOL/ZEASORB 1 APPLIC TOPICAL ×2 (09:35→20:23)
--- NOTE | 2024-07-03 09:39 | CM ---
Pt for angiogram today.
Pt independent prior to admission.
Continues Heparin Gtt.
Offered VN she declined.
PLAN Home no anticipated needs
[2024-07-03 10:10] LABS: INR 0.95
[2024-07-03 10:11] LABS: APTT 56.3 Sec (23.4-35.0)
[2024-07-03 10:15] LABS: Hematocrit 37.5 % (37.0-47.0); Hemoglobin 12.6 g/dL (12.0-16.0); Mean Corp Hgb Conc. 33.6 g/dL (33.0-37.0); Mean Corpuscular Hgb 31.6 pg (27.0-31.0); Mean Platelet Volume 10.2 fL (7.4-10.4); Platelet Count 188 10^3/uL (130-400); Red Blood Cell Count 3.99 10^6/uL (4.20-5.40); Red Cell Dist. Width 13.6 % (11.5-14.5); White Blood Cell Count 6.8 10^3/uL (4.8-10.8)
--- NOTE | 2024-07-03 10:44 | W.PN.UPDATE ---
Update Note
Progress Note Update
Patient seen, and chart reviewed. Per patient no events over the weekend. Due to OR schedule and occurrences of unplanned emergent cases arising plan for patient is to move procedure to tomorrow 07/04/24. Patient updated at bedside by Dr. Randy Winn
Parra and daughter updated via phone, who both agree with proceeding tomorrow. Hospitalist updated via TT.
[2024-07-03 11:28] LABS: Blood Urea Nitrogen 15 mg/dl (7-17); Carbon Dioxide 26 mmol/L (22-30); Chloride 106 mmol/L (98-107); Estimated Creatinine Clearance 65 ml/min; Glucose 81 mg/dl (70-99); Potassium 4.2 mmol/L (3.5-5.1); Sodium 141 mmol/L (135-145); eGFR > 60.00
[2024-07-03 11:49] VITALS: BP 119/53
--- NOTE | 2024-07-03 14:00 | W.PN.HOSP.TC ---
Today's Communication/Plan
-
continue IV heparin
NPO p MN for R a-gram tomorrow
Assessment / Plan
Assessment / Plan
79 y.o with h/o possibly prior TIA many years ago, no history of CAD or known PAD, hypothyroid, hyperlipidemia had right eye transient vision loss and a follow up carotid u/s which showed concernt for high grade stenosis or occlusion of the
innominate artery. Patient was asymptomatic at the time of admission.
Gen: NAD, AAOx3.
Eyes: EOMI, PERRLA, no scleral icterus.
Neck: supple.
CV: RRR, +S1/S2, no m/r/g.
Resp: CTAB, no rales, wheezes, or rhonchi.
Abd: +BS, soft, NT, ND
Skin: No rashes.
Neuro: CN 2-12 intact, non-focal.
Psych: Normal mood and affect.
CTA head/neck: Limited, less than optimal examination secondary to suboptimal contrast bolus, as well as motion degradation as a result of referred pulsation artifact in the region of the aortic arch and branch vessels. This results in severe
restricted assessment of the vessel lumen and vessel patency. There appears to be severe/high-grade stenosis versus occlusion at the origin of the innominate artery and left common carotid artery, as well as the subclavian artery. Large amount of
calcified plaque associated with the distal innominate artery near the origin of the right common carotid artery and subclavian artery. The aortic arch and branch vessels would be better assessed with gated chest CT angiography.
Right carotid artery: Calcified plaque. Carotid bulb estimated at luminal diameter reduction of less than 50%. Proximal ICA estimated luminal diameter reduction of 65-70%. Limited visualization of the cavernous internal carotid artery demonstrates
large amount of calcified plaque.
Left carotid artery: Calcified plaque. Carotid bulb estimated luminal diameter reduction of greater than 50%. Proximal ICA estimated luminal diameter reduction of 55-60%. Limited visualization of the cavernous internal carotid artery demonstrates
moderate amount of calcified plaque.
Proximal left vertebral artery calcified plaque with approximately 50% luminal diameter reduction.
CUS:
1. Abnormally decreased velocity with abnormal waveforms throughout the right common carotid artery and the right internal carotid artery. Flow reversal in the right vertebral artery. These findings are most likely related to innominate artery
high-grade stenosis or occlusion. As warranted, this could be further evaluated with CT angiogram of the neck.
2. By velocity criteria, any right internal carotid artery stenosis present is in the range of 0-49%.
CTA chest:
1. No aortic aneurysm or dissection. There is high-grade stenosis/near complete occlusion of the ostium of the innominate and and left subclavian arteries. There is atherosclerotic calcification at the ostium of the left common carotid artery with
associated moderate stenosis.
2. Coronary artery calcifications.
CTA neck 06/30/24: There is mixed density atherosclerotic plaque of the proximal right common carotid artery with associated high-grade/severe stenosis. Atherosclerotic calcifications of the right carotid bifurcation/proximal ICA with resultant
approximately 40% stenosis by NASCET criteria. The right vertebral artery is diminutive throughout its course with a left dominant vertebral artery. The left vertebral artery demonstrates mild/moderate stenosis at the ostium secondary to calcified
atherosclerotic plaque. Visualized intracranial vessels appear patent without significant stenosis.
Vascular occlusion, high grade stenosis of R common carotid/inominate arteries:
- Vascular and neurology following
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
- cont heparin gtt - requires intensive monitoring of PTTs
- R carotid angiogram on 07/04
- cont statin
Paroxysmal A. fib:
- found danay-operatively. No rate control agent. Sinus rhythm currently.
- currently on heparin gtt
Hypothyroidism:
- cont Levothyroxine
DVT ppx: Heparin drip
Code: Full
Anticipated Discharge: > 48 hours
Subjective/Interval History
-
Date of Service: July 03, 2024
no new complaints at present
Objective Data
-
Labs:
Laboratory Results
07/03/24 07/03/24
08:23 17:30
WBC 6.8
Hgb 12.6
Hct 37.5
Plt Count 188
PT 13.0
INR 0.95
APTT 56.3 H Pending
Sodium 141
Potassium 4.2
Chloride 106
Carbon Dioxide 26
BUN 15
Creatinine 0.7
Glucose 81
Calcium 9.0
Vital Signs:
Vital Signs
Temp Pulse Resp BP Pulse Ox
97.6 F 69 18 119/53 96
07/03/24 11:49 07/03/24 11:49 07/03/24 11:49 07/03/24 11:49 07/03/24 11:49
I&O
07/02/24 07/03/24 07/04/24
06:59 06:59 06:59
Intake Total 660 / 660 960 / 960
Balance 660 / 660 960 / 960
Physical Exam
-
General: No Apparent Distress
HEENT: Normocephalic and Atraumatic
Respiratory: Negative Wheezes
Cardiac: Regular Rhythm and S1/S2
GI: Soft
Genito-urinary: No Costovertebral Tender
Neuro: AO x 3
Psych: Calm
Data Reviewed
-
Total Time Spent with Patient (in minutes): 42
Labs: Labs Reviewed by me
--- NOTE | 2024-07-03 15:53 | VNURNOTE ---
Home Health Liaison spoke with patient to discuss [facility] nurse/therapy, visits, schedule and homebound status. Patient is agreeable and understands that visits at home will be 2-3 x per week to assess and teach medical management. Patient is aware
that [facility] will contact them for start of care in 1-2 days after discharge from . [facility] referral completed in [facility].
[2024-07-03 16:02] VITALS: BP 118/64
[2024-07-03] MEDS: ZOLOFT 100 MG PO (17:11)
[2024-07-03] MEDS: TYLENOL 1000 MG PO (17:15)
[2024-07-03 19:08] VITALS: BP 117/50
[2024-07-03] MEDS: CRESTOR 20 MG PO (20:23)
[2024-07-03 20:31] LABS: APTT 96.8 Sec (23.4-35.0)
[2024-07-03 23:29] VITALS: BP 129/64
[2024-07-04] VITALS (15 sets, daily range): BP systolic 87–137; BP diastolic 43–82
[2024-07-04 03:10] LABS: APTT 84.7 Sec (23.4-35.0)
[2024-07-04 05:15] LABS: Hematocrit 37.6 % (37.0-47.0); Hemoglobin 12.3 g/dL (12.0-16.0); Mean Corp Hgb Conc. 32.7 g/dL (33.0-37.0); Mean Corpuscular Hgb 30.9 pg (27.0-31.0); Mean Corpuscular Volume 94.5 fL (81.0-99.0); Mean Platelet Volume 10.4 fL (7.4-10.4); Platelet Count 188 10^3/uL (130-400); Red Blood Cell Count 3.98 10^6/uL (4.20-5.40); Red Cell Dist. Width 13.8 % (11.5-14.5); White Blood Cell Count 6.1 10^3/uL (4.8-10.8)
[2024-07-04 05:48] LABS: Blood Urea Nitrogen 18 mg/dl (7-17); Calcium 9.2 mg/dl (8.4-10.2); Carbon Dioxide 28 mmol/L (22-30); Chloride 104 mmol/L (98-107); Estimated Creatinine Clearance 65 ml/min; Glucose 100 mg/dl (70-99); Potassium 4.3 mmol/L (3.5-5.1); Sodium 142 mmol/L (135-145); eGFR > 60.00
[2024-07-04] MEDS: SYNTHROID 50 MCG PO (08:20)
[2024-07-04] MEDS: TYLENOL 1000 MG PO ×2 (08:23→21:19)
[2024-07-04] MEDS: DESENEX/MITRAZOL/ZEASORB 1 APPLIC TOPICAL ×2 (08:24→21:18)
--- NOTE | 2024-07-04 09:02 | W.PN.HOSP.TC ---
Today's Communication/Plan
-
R angiogram today
Assessment / Plan
Assessment / Plan
79 y.o with h/o possibly prior TIA many years ago, no history of CAD or known PAD, hypothyroid, hyperlipidemia had right eye transient vision loss and a follow up carotid u/s which showed concernt for high grade stenosis or occlusion of the
innominate artery. Patient was asymptomatic at the time of admission.
Gen: NAD, AAOx3.
Eyes: EOMI, PERRLA, no scleral icterus.
Neck: supple.
CV: RRR, +S1/S2, no m/r/g.
Resp: CTAB, no rales, wheezes, or rhonchi.
Abd: +BS, soft, NT, ND
Skin: No rashes.
Neuro: CN 2-12 intact, non-focal.
Psych: Normal mood and affect.
CTA head/neck: Limited, less than optimal examination secondary to suboptimal contrast bolus, as well as motion degradation as a result of referred pulsation artifact in the region of the aortic arch and branch vessels. This results in severe
restricted assessment of the vessel lumen and vessel patency. There appears to be severe/high-grade stenosis versus occlusion at the origin of the innominate artery and left common carotid artery, as well as the subclavian artery. Large amount of
calcified plaque associated with the distal innominate artery near the origin of the right common carotid artery and subclavian artery. The aortic arch and branch vessels would be better assessed with gated chest CT angiography.
Right carotid artery: Calcified plaque. Carotid bulb estimated at luminal diameter reduction of less than 50%. Proximal ICA estimated luminal diameter reduction of 65-70%. Limited visualization of the cavernous internal carotid artery demonstrates
large amount of calcified plaque.
Left carotid artery: Calcified plaque. Carotid bulb estimated luminal diameter reduction of greater than 50%. Proximal ICA estimated luminal diameter reduction of 55-60%. Limited visualization of the cavernous internal carotid artery demonstrates
moderate amount of calcified plaque.
Proximal left vertebral artery calcified plaque with approximately 50% luminal diameter reduction.
CUS:
1. Abnormally decreased velocity with abnormal waveforms throughout the right common carotid artery and the right internal carotid artery. Flow reversal in the right vertebral artery. These findings are most likely related to innominate artery
high-grade stenosis or occlusion. As warranted, this could be further evaluated with CT angiogram of the neck.
2. By velocity criteria, any right internal carotid artery stenosis present is in the range of 0-49%.
CTA chest:
1. No aortic aneurysm or dissection. There is high-grade stenosis/near complete occlusion of the ostium of the innominate and and left subclavian arteries. There is atherosclerotic calcification at the ostium of the left common carotid artery with
associated moderate stenosis.
2. Coronary artery calcifications.
CTA neck 06/30/24: There is mixed density atherosclerotic plaque of the proximal right common carotid artery with associated high-grade/severe stenosis. Atherosclerotic calcifications of the right carotid bifurcation/proximal ICA with resultant
approximately 40% stenosis by NASCET criteria. The right vertebral artery is diminutive throughout its course with a left dominant vertebral artery. The left vertebral artery demonstrates mild/moderate stenosis at the ostium secondary to calcified
atherosclerotic plaque. Visualized intracranial vessels appear patent without significant stenosis.
Assessment:
Vascular occlusion, high grade stenosis of R common carotid/inominate arteries:
- Vascular and neurology following
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
- cont heparin gtt - requires intensive monitoring of PTTs
- R carotid angiogram on 07/04
- cont statin
Paroxysmal A. fib:
- found danay-operatively. No rate control agent. Sinus rhythm currently.
- cont heparin gtt - requires intensive monitoring of PTTs
Hypothyroidism:
- cont Levothyroxine
DVT ppx: Heparin drip
Code: Full
Anticipated Discharge: 24 - 48 hours
Subjective/Interval History
-
Date of Service: July 04, 2024
isolated tele event of ricardo with HR 34, briefly, responded rapidly back to NSR in 70s - patient asymptomatic
denies any new complaints at present
Objective Data
-
Labs:
Laboratory Results
07/04/24 07/04/24
02:32 04:16
WBC 6.1
Hgb 12.3
Hct 37.6
Plt Count 188
APTT 84.7 H
Sodium 142
Potassium 4.3
Chloride 104
Carbon Dioxide 28
BUN 18 H
Creatinine 0.7
Glucose 100 H
Calcium 9.2
Vital Signs:
Vital Signs
Temp Pulse Resp BP Pulse Ox
97.8 F 67 18 137/63 96
07/04/24 07:38 07/04/24 07:38 07/04/24 07:38 07/04/24 07:38 07/04/24 07:38
I&O
07/03/24 07/04/24 07/05/24
06:59 06:59 06:59
Intake Total 960 / 960 0 / 0
Balance 960 / 960 0 / 0
Physical Exam
-
General: No Apparent Distress
HEENT: Normocephalic and Atraumatic
Respiratory: Negative Wheezes
Cardiac: Regular Rhythm and S1/S2
GI: Soft
Genito-urinary: No Costovertebral Tender
Neuro: AO x 3
Hematologic / Lymphatic: No Lymphadenopathy
Psych: Calm
Data Reviewed
-
Total Time Spent with Patient (in minutes): 51
Labs: Labs Reviewed by me
--- NOTE | 2024-07-04 11:00 | PTCARENOTE ---
Patient with runs of [place] on telemetry. Dr. Allen made aware. Patient has been asymptomatic during these runs. Plan of care ongoing.
--- NOTE | 2024-07-04 11:00 | W.SUR.PREOP ---
Pre-Operative Surgical Note
-
I have examined this patient prior to the performance of the scheduled procedure.
The patient's condition is unchanged from the time of the current History and
Physical and the patient is able to undergo the scheduled procedure.
--- NOTE | 2024-07-04 16:40 | CM ---
Angiogram changed to today.
Pt independent prior to admission.
Continues Heparin Gtt.
Offered VN she requested [facility] , Yovana Frank set up [facility]
PLAN Home with [facility]
[2024-07-04] MEDS: NSS 1000 IV (17:13)
--- NOTE | 2024-07-04 17:43 | PTCARENOTE ---
Returned from OR with R groin dressing (gauze and tegaderm) CDI. No hematoma noted. + neurovascular check with ORDER CHECKER PACKER PROCESSER. Call lozano within reach. Educated patient on activity restrictions.
[2024-07-04] MEDS: ZOLOFT 100 MG PO (18:00)
--- NOTE | 2024-07-04 18:22 | W.IMMPOSTOP ---
Surgical Immed Post Op Note
-
Primary Surgeon: Dr. Randy Parra III, MD
Assisting Surgeon: Jozef Cat MD, PhD (PGY-2)
Pre-op Diagnosis: Amaurosis fugax of right eye
Post-op Diagnosis: Amaurosis fugax of right eye
Procedure Performed: Diagnostic aortogram
Anesthesia Type: MAC
Specimen / Cultures: None
Estimated Blood Loss: Minimal
Complications: None
Operative Findings: The patient was brought to the OR and placed in the supine position. The patient was prepped and draped in usual sterile fashion. Fluoroscopy was used to identify the superior and inferior boundaries of the femoral head, this
was marked at the skin. Ultrasound guidance was used to identify the right common femoral artery. Local anesthetic was injected at the proposed injection site. Micropuncture needle was used to access the right PROFESSOR OF COUNSELING. This was upsized to a 5Fr sheath
over a Bentson wire. A conte's hook catheter was advanced to the ascending aorta over a guidewire. A diagnostic aortogram was performed showing significant disease at the base of all three arch vessels but with antegrade flow through all vessels.
There was also disease noted at the bifurcation of the right common carotid and subclavian arteries. All wires, catheters, and sheaths were removed. Manual pressure was held at the puncture site. The patient was transferred to the PACU in stable
condition.
--- NOTE | 2024-07-04 19:33 | OR.RPT ---
Operative Report
Operative Report
Date of Operation: 07/04/2024
Pre Op Diagnosis:
1.) calcified atherosclerotic disease involving the aortic arch and great vessels
2.) calcified innominate stenosis
3.) calcified right subclavian artery stenosis
4.) right common carotid artery stenosis
5.) calcified left common carotid origin stenosis
6.) calcified proximal left subclavian artery stenosis
Post Op Diagnosis:
1.) calcified atherosclerotic disease involving the aortic arch and great vessels
2.) calcified innominate stenosis
3.) calcified right subclavian artery stenosis
4.) right common carotid artery stenosis
5.) calcified left common carotid origin stenosis
6.) calcified proximal left subclavian artery stenosis
Procedure:
1.) Introduce wire catheter into ascending aorta via right femoral artery access
2.) Diagnostic arch aortogram
3.) Diagnostic arteriogram of the innominate artery, right subclavian, right common carotid artery, left common carotid artery and left subclavian artery.
4.) Ultrasound-guided percutaneous access to the right common femoral artery
Surgeon: Randy Parra III, MD
Transfer Iron Operator: Jozef Cat MD PhD, PGY2
Anesthesia: Sedation with local
Fluoroscopy:
7.7 min
177 mGy
37.41 Gy.cm2
Complications: None
Estimated Blood Loss: Less than 10 cc
History and Indications for Procedure: 79-year-old female with recent right sided amaurosis and imaging demonstrating severe calcified atherosclerotic disease of the great vessels. Difficult to determine based on cross-sectional imaging if the
calcified lesions were occlusive. Recommended formal catheter-based arch aortogram including the great vessels to better understand patient's disease burden and anatomy.
Procedure in Detail: Joann Cotton was correctly identified and placed supine on the operating table. After adequate induction of anesthesia the bilateral groins were prepped and draped in the usual sterile fashion. A timeout was performed with
the nursing and anesthesia staff confirming the patient's identity as well as the nature and laterality of the procedure.
The right common femoral artery was identified under ultrasound guidance. The artery was patent. The superior and inferior aspects of the femoral head were identified with radiographic guidance and marked at the skin level. The proposed puncture
site was infiltrated with local anesthesia. Under ultrasound guidance we accessed the right common femoral artery with a micropuncture needle and upsized to a 5 Fr sheath over a [employer] wire. The wire and a pigtail flush catheter were advanced into
the ascending aorta and a diagnostic arch aortogram was performed:
ARCH AORTOGRAM:
Patent aortic arch. Densely calcified plaque at the innominate artery origin. The innominate does fill antegrade. Delayed filling of right common carotid and right subclavian compared to the left. Calcified plaque is also demonstrated at the
innominate bifurcation extending into the proximal right subclavian artery. The right subclavian artery fills antegrade. No clear visualization of the right vertebral artery. The mid and distal right common carotid artery are patent with no
significant stenosis identified. Heavily calcified plaque at the origin of the left common carotid artery causing a high-grade stenosis. Beyond this the left common carotid artery is patent with no significant stenosis identified. Heavily
calcified plaque at the origin of the left subclavian artery causing a high-grade stenosis. Subclavian artery fills antegrade. Widely patent left vertebral artery with antegrade flow.
Satisfied with this diagnostic information we concluded the procedure. The catheter was pulled from the 5 [place] sheath in the right groin. The sheath was secured in place with the plan to pull it in the recovery room.
The patient tolerated the procedure well and was taken to the recovery area in stable condition.
Attestation: I was present and responsible for the entire procedure.
Signed:
Randy Parra III, MD
[facility]
[phone] (nupj)
[2024-07-04] MEDS: NSS 500 IV (19:40)
--- NOTE | 2024-07-04 19:43 | PTCARENOTE ---
Patient with low BP. 85/54. Asymptomatic. Vascular Surgery and Hospitalist made aware. 500ml bolus ordered. Plan on care ongoing.
[2024-07-04] MEDS: CRESTOR 20 MG PO (21:19)
[2024-07-05] MEDS: HEPARIN 25000 UNITS/250 ML IV ×2 (02:12→22:52)
[2024-07-05 03:49] VITALS: BP 104/59
[2024-07-05 05:08] LABS: Hematocrit 34.9 % (37.0-47.0); Hemoglobin 11.8 g/dL (12.0-16.0); Mean Corp Hgb Conc. 33.8 g/dL (33.0-37.0); Mean Corpuscular Hgb 31.3 pg (27.0-31.0); Mean Corpuscular Volume 92.6 fL (81.0-99.0); Mean Platelet Volume 10.2 fL (7.4-10.4); Platelet Count 183 10^3/uL (130-400); Red Blood Cell Count 3.77 10^6/uL (4.20-5.40); Red Cell Dist. Width 13.4 % (11.5-14.5); White Blood Cell Count 8.5 10^3/uL (4.8-10.8)
[2024-07-05 05:18] LABS: INR 1.01; PT 13.6 Sec (11.4-14.6)
[2024-07-05 05:20] LABS: APTT 98.6 Sec (23.4-35.0)
[2024-07-05 05:46] LABS: Blood Urea Nitrogen 14 mg/dl (7-17); Calcium 8.8 mg/dl (8.4-10.2); Carbon Dioxide 21 mmol/L (22-30); Chloride 109 mmol/L (98-107); Estimated Creatinine Clearance 76 ml/min; Glucose 122 mg/dl (70-99); Potassium 4.3 mmol/L (3.5-5.1); Sodium 139 mmol/L (135-145); eGFR > 60.00
[2024-07-05 07:43] VITALS: BP 111/56
[2024-07-05] MEDS: SYNTHROID 50 MCG PO (08:16)
[2024-07-05] MEDS: DESENEX/MITRAZOL/ZEASORB 1 APPLIC TOPICAL ×2 (08:16→19:43)
--- NOTE | 2024-07-05 09:29 | W.PN.HOSP.TC ---
Today's Communication/Plan
-
continue IV heparin
await family discussion with Vascular surgery on intervention options
Assessment / Plan
Assessment / Plan
79 y.o with h/o possibly prior TIA many years ago, no history of CAD or known PAD, hypothyroid, hyperlipidemia had right eye transient vision loss and a follow up carotid u/s which showed concernt for high grade stenosis or occlusion of the
innominate artery. Patient was asymptomatic at the time of admission.
Gen: NAD, AAOx3.
Eyes: EOMI, PERRLA, no scleral icterus.
Neck: supple.
CV: RRR, +S1/S2, no m/r/g.
Resp: CTAB, no rales, wheezes, or rhonchi.
Abd: +BS, soft, NT, ND
Skin: No rashes.
Neuro: CN 2-12 intact, non-focal.
Psych: Normal mood and affect.
CTA head/neck: Limited, less than optimal examination secondary to suboptimal contrast bolus, as well as motion degradation as a result of referred pulsation artifact in the region of the aortic arch and branch vessels. This results in severe
restricted assessment of the vessel lumen and vessel patency. There appears to be severe/high-grade stenosis versus occlusion at the origin of the innominate artery and left common carotid artery, as well as the subclavian artery. Large amount of
calcified plaque associated with the distal innominate artery near the origin of the right common carotid artery and subclavian artery. The aortic arch and branch vessels would be better assessed with gated chest CT angiography.
Right carotid artery: Calcified plaque. Carotid bulb estimated at luminal diameter reduction of less than 50%. Proximal ICA estimated luminal diameter reduction of 65-70%. Limited visualization of the cavernous internal carotid artery demonstrates
large amount of calcified plaque.
Left carotid artery: Calcified plaque. Carotid bulb estimated luminal diameter reduction of greater than 50%. Proximal ICA estimated luminal diameter reduction of 55-60%. Limited visualization of the cavernous internal carotid artery demonstrates
moderate amount of calcified plaque.
Proximal left vertebral artery calcified plaque with approximately 50% luminal diameter reduction.
CUS:
1. Abnormally decreased velocity with abnormal waveforms throughout the right common carotid artery and the right internal carotid artery. Flow reversal in the right vertebral artery. These findings are most likely related to innominate artery
high-grade stenosis or occlusion. As warranted, this could be further evaluated with CT angiogram of the neck.
2. By velocity criteria, any right internal carotid artery stenosis present is in the range of 0-49%.
CTA chest:
1. No aortic aneurysm or dissection. There is high-grade stenosis/near complete occlusion of the ostium of the innominate and and left subclavian arteries. There is atherosclerotic calcification at the ostium of the left common carotid artery with
associated moderate stenosis.
2. Coronary artery calcifications.
CTA neck 06/30/24: There is mixed density atherosclerotic plaque of the proximal right common carotid artery with associated high-grade/severe stenosis. Atherosclerotic calcifications of the right carotid bifurcation/proximal ICA with resultant
approximately 40% stenosis by NASCET criteria. The right vertebral artery is diminutive throughout its course with a left dominant vertebral artery. The left vertebral artery demonstrates mild/moderate stenosis at the ostium secondary to calcified
atherosclerotic plaque. Visualized intracranial vessels appear patent without significant stenosis.
Assessment:
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
- Vascular and neurology following
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
- cont heparin gtt - requires intensive monitoring of PTTs
- s/p R carotid angiogram on 07/04 : showing significant disease at the base of all three arch vessels but with antegrade flow through all vessels. There was also disease noted at the bifurcation of the right common carotid and subclavian arteries
- await discussion from Vascular sx with family on further steps.
- cont statin
Paroxysmal A. fib:
- found danay-operatively. No rate control agent. Sinus rhythm currently.
- cont heparin gtt - requires intensive monitoring of PTTs
Hypothyroidism:
- cont Levothyroxine
DVT ppx: Heparin drip
Code: Full
Anticipated Discharge: 24 - 48 hours
Subjective/Interval History
-
Date of Service: July 05, 2024
s/p Agram yesterday
denies any complaints today
Objective Data
-
Labs:
Laboratory Results
07/05/24 07/05/24 07/05/24
04:00 04:42 10:50
WBC 8.5
Hgb 11.8 L
Hct 34.9 L
Plt Count 183
PT 13.6
INR 1.01
APTT Cancelled 98.6 H Pending
Sodium 139
Potassium 4.3
Chloride 109 H
Carbon Dioxide 21 L
BUN 14
Creatinine 0.5 L
Glucose 122 H
Calcium 8.8
Vital Signs:
Vital Signs
Temp Pulse Resp BP Pulse Ox
98 F 71 20 111/56 95
07/05/24 07:43 07/05/24 07:43 07/05/24 07:43 07/05/24 07:43 07/05/24 08:28
I&O
07/04/24 07/05/24 07/06/24
06:59 06:59 06:59
Intake Total 0 / 0 1284 / 1284
Balance 0 / 0 1284 / 1284
Physical Exam
-
General: No Apparent Distress
HEENT: Normocephalic and Atraumatic
Respiratory: Negative Wheezes
Cardiac: Regular Rhythm and S1/S2
GI: Soft and Nontender
Genito-urinary: No Costovertebral Tender
Neuro: AO x 3
Psych: Intact Judgement/Insight
Data Reviewed
-
Total Time Spent with Patient (in minutes): 51
Labs: Labs Reviewed by me
[2024-07-05 11:06] VITALS: BMI 36.8
[2024-07-05 11:15] VITALS: BP 104/67
[2024-07-05 11:42] LABS: APTT 98.4 Sec (23.4-35.0)
--- NOTE | 2024-07-05 14:21 | W.PN.VS ---
Today's Communication / Plan
-
Discussed with Dr. Parra
Assessment/Plan
-
TIA 1 week ago with vascular lesions as possible source
POD 1 diagnostic arteriogram
- Family discussion planned for later today by phone. (Dr. Parra and patient's daughter)
Subjective Data
-
Date of Service: July 05, 2024
Patient seen at bedside. Did well overnight. Groin site clean, dry, intact, mild ecchymosis, soft.
Objective Data
-
Vital Signs
Temp Pulse Resp BP Pulse Ox
97.5 F 68 20 104/67 98
07/05/24 11:15 07/05/24 11:15 07/05/24 11:15 07/05/24 11:15 07/05/24 11:15
Intake and Output
07/04/24 07/05/24 07/06/24
06:59 06:59 06:59
Intake Total 0 / 0 1284 / 1284
Balance 0 / 0 1284 / 1284
Intake:
Oral fluids 0 / 0 240 / 240
IV fluids (Total) 304 / 304
NSS 200 / 200
IV piggybacks 740 / 740
Other:
Number of approximated MODERATE 2 2
amounts of urine
Lab Results
07/05/24 04:42
07/05/24 04:42
Calcium 8.8 mg/dl (8.4-10.2) 07/05/24 04:42
Magnesium 2.0 mg/dl (1.6-2.3) 07/04/24 04:16
Total Bilirubin 0.9 mg/dl (0.2-1.3) 06/28/24 19:40
AST 22 U/L (14-36) 06/28/24 19:40
ALT 17 U/L (0-35) 06/28/24 19:40
Alkaline Phosphatase 58 U/L (38-126) 06/28/24 19:40
Total Protein 7.2 g/dl (6.3-8.2) 06/28/24 19:40
Albumin 4.5 g/dl (3.5-5.0) 06/28/24 19:40
Physical Exam
-
AAOx3
No tachypnea
No tachycardia
Abdomen soft
Right groin site dressing clean, dry, intact. Soft, flat, mild ecchymosis
[2024-07-05 15:05] VITALS: BP 110/55
--- NOTE | 2024-07-05 16:21 | PTCARENOTE ---
Pt AAO x3, MCBRIDE well, OOB to BR with min assistance, uriah well. VSS. Telemetry:NSR with first degree AVB. On room air- pulse ox 98%, no SOB noted. Abd obese, soft, uriah PO well. Voiding in BR without difficulty. Neurovascular check to RLE WNL; Rt
groin site dsg D/I, ecchymotic are under dsg. Heparin drip @ 1300 units /hr (13 ml/hr) infusing via Rt wrist site without sx of infiltration. Resting in bed at present, no c/o. Will continue to monitor.
[2024-07-05] MEDS: ZOLOFT 100 MG PO (18:00)
[2024-07-05] MEDS: TYLENOL 1000 MG PO (19:43)
[2024-07-05] MEDS: CRESTOR 20 MG PO (19:43)
[2024-07-05 19:46] VITALS: BP 107/54
[2024-07-05 23:21] VITALS: BP 118/52
[2024-07-06 03:39] VITALS: BP 147/60
[2024-07-06 07:25] VITALS: BP 124/57
[2024-07-06] MEDS: DESENEX/MITRAZOL/ZEASORB 1 APPLIC TOPICAL (07:55)
[2024-07-06] MEDS: SYNTHROID 50 MCG PO (07:56)
[2024-07-06] MEDS: SENOKOT-S 1 TABLET PO (08:06)
[2024-07-06 08:48] LABS: Hematocrit 37.1 % (37.0-47.0); Hemoglobin 11.7 g/dL (12.0-16.0); Mean Corp Hgb Conc. 31.5 g/dL (33.0-37.0); Mean Corpuscular Hgb 31.1 pg (27.0-31.0); Mean Corpuscular Volume 98.7 fL (81.0-99.0); Mean Platelet Volume 10.5 fL (7.4-10.4); Platelet Count 164 10^3/uL (130-400); Red Blood Cell Count 3.76 10^6/uL (4.20-5.40); White Blood Cell Count 6.9 10^3/uL (4.8-10.8)
[2024-07-06 09:03] LABS: APTT 126.3 Sec (23.4-35.0)
[2024-07-06 09:24] LABS: Blood Urea Nitrogen 16 mg/dl (7-17); Calcium 8.6 mg/dl (8.4-10.2); Carbon Dioxide 25 mmol/L (22-30); Chloride 108 mmol/L (98-107); Estimated Creatinine Clearance 65 ml/min; Glucose 77 mg/dl (70-99); Potassium 4.1 mmol/L (3.5-5.1); Sodium 141 mmol/L (135-145); eGFR > 60.00
--- NOTE | 2024-07-06 10:31 | W.PN.HOSP.TC ---
Addendum entered and electronically signed by Vinny Allen MD 07/06/24 12:58:
Ongoing discussions with Vascular surgery regarding intervention will occur outpatient per Vascular surgery. DC home on Eliquis/ASA
Original Note:
Today's Communication/Plan
-
continue IV heparin
await family discussion with Vascular surgery on intervention options
Assessment / Plan
Assessment / Plan
79 y.o with h/o possibly prior TIA many years ago, no history of CAD or known PAD, hypothyroid, hyperlipidemia had right eye transient vision loss and a follow up carotid u/s which showed concernt for high grade stenosis or occlusion of the
innominate artery. Patient was asymptomatic at the time of admission.
CTA head/neck: Limited, less than optimal examination secondary to suboptimal contrast bolus, as well as motion degradation as a result of referred pulsation artifact in the region of the aortic arch and branch vessels. This results in severe
restricted assessment of the vessel lumen and vessel patency. There appears to be severe/high-grade stenosis versus occlusion at the origin of the innominate artery and left common carotid artery, as well as the subclavian artery. Large amount of
calcified plaque associated with the distal innominate artery near the origin of the right common carotid artery and subclavian artery. The aortic arch and branch vessels would be better assessed with gated chest CT angiography.
Right carotid artery: Calcified plaque. Carotid bulb estimated at luminal diameter reduction of less than 50%. Proximal ICA estimated luminal diameter reduction of 65-70%. Limited visualization of the cavernous internal carotid artery demonstrates
large amount of calcified plaque.
Left carotid artery: Calcified plaque. Carotid bulb estimated luminal diameter reduction of greater than 50%. Proximal ICA estimated luminal diameter reduction of 55-60%. Limited visualization of the cavernous internal carotid artery demonstrates
moderate amount of calcified plaque.
Proximal left vertebral artery calcified plaque with approximately 50% luminal diameter reduction.
CUS:
1. Abnormally decreased velocity with abnormal waveforms throughout the right common carotid artery and the right internal carotid artery. Flow reversal in the right vertebral artery. These findings are most likely related to innominate artery
high-grade stenosis or occlusion. As warranted, this could be further evaluated with CT angiogram of the neck.
2. By velocity criteria, any right internal carotid artery stenosis present is in the range of 0-49%.
CTA chest:
1. No aortic aneurysm or dissection. There is high-grade stenosis/near complete occlusion of the ostium of the innominate and and left subclavian arteries. There is atherosclerotic calcification at the ostium of the left common carotid artery with
associated moderate stenosis.
2. Coronary artery calcifications.
CTA neck 06/30/24: There is mixed density atherosclerotic plaque of the proximal right common carotid artery with associated high-grade/severe stenosis. Atherosclerotic calcifications of the right carotid bifurcation/proximal ICA with resultant
approximately 40% stenosis by NASCET criteria. The right vertebral artery is diminutive throughout its course with a left dominant vertebral artery. The left vertebral artery demonstrates mild/moderate stenosis at the ostium secondary to calcified
atherosclerotic plaque. Visualized intracranial vessels appear patent without significant stenosis.
Assessment:
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
- Vascular and neurology following
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
- cont heparin gtt - requires intensive monitoring of PTTs
- s/p R carotid angiogram on 07/04 : showing significant disease at the base of all three arch vessels but with antegrade flow through all vessels. There was also disease noted at the bifurcation of the right common carotid and subclavian arteries
- await discussion from Vascular sx with family on further steps.
- cont statin
Paroxysmal A. fib:
- found danay-operatively. No rate control agent. Sinus rhythm currently.
- cont heparin gtt - requires intensive monitoring of PTTs
Hypothyroidism:
- cont Levothyroxine
DVT ppx: Heparin drip
Code: Full
Anticipated Discharge: Within 24 hours
Subjective/Interval History
-
Date of Service: July 06, 2024
no complaints at present
Objective Data
-
Labs:
Laboratory Results
07/06/24 07/06/24
07:16 15:10
WBC 6.9
Hgb 11.7 L
Hct 37.1
Plt Count 164
APTT 126.3 H Pending
Sodium 141
Potassium 4.1
Chloride 108 H
Carbon Dioxide 25
BUN 16
Creatinine 0.7
Glucose 77
Calcium 8.6
Vital Signs:
Vital Signs
Temp Pulse Resp BP Pulse Ox
97.8 F 58 18 124/57 95
07/06/24 07:25 07/06/24 07:25 07/06/24 07:25 07/06/24 07:25 07/06/24 08:00
I&O
07/05/24 07/06/24 07/07/24
06:59 06:59 06:59
Intake Total 1284 / 1284 1476 / 1476
Balance 1284 / 1284 1476 / 1476
Physical Exam
-
General: No Apparent Distress
HEENT: Normocephalic and Atraumatic
Respiratory: Negative Wheezes
Cardiac: Regular Rhythm
GI: Soft
Genito-urinary: No Costovertebral Tender
Musculoskeletal: No Edema
Neuro: AO x 3
Hematologic / Lymphatic: No Lymphadenopathy
Psych: Calm
Data Reviewed
-
Total Time Spent with Patient (in minutes): 51
Labs: Labs Reviewed by me
[2024-07-06 11:25] VITALS: BP 107/53
--- NOTE | 2024-07-06 13:04 | W.DS.TRANS ---
DC Summary - I&C Technician
-
Discharge Instructions:
Sleep Apnea Risk Intermediate
Discharge Diagnosis/Procedures TIA (Amaurosis Fugax) with R carotid stenosis s/
p Angiogram 07/04
Diet Low Cholesterol
Activity As tolerated
Other Services VN
Instructions:
Stand-Alone Forms:
Changes to Home Medications: No
Discharge Medications:
DC Medications w/original date entered in [employer]
cholecalciferol (vitamin D3) 50 mcg (2,000 unit) tablet 2,000 unit PO DAILY Supplement 10/24/14
cyanocobalamin (vitamin B-12) 1,000 mcg tablet 1,000 mcg PO DAILY Supplement 10/24/14
rosuvastatin 20 mg tablet 20 mg PO HS High Cholesterol 09/08/16
sertraline 100 mg tablet 100 mg PO QPM Depression 07/05/17
acetaminophen 500 mg capsule 1,000 mg PO Q6HPRN PRN mild pain 05/27/23
levothyroxine 50 mcg tablet 50 mcg PO DAILY Thyroid 05/27/23
magnesium oxide 500 mg PO QPM Supplement 06/28/24
apixaban 5 mg tablet (Eliquis) 5 mg PO BID Blood Clot Prevention/Tx #60 tabs 07/06/24
aspirin 81 mg chewable tablet 81 mg PO DAILY #100 tabs 07/06/24
Home Medication Changes
Pending Results: No
Total time spent discharging patient (in min): 41
[2024-07-06] MEDS: LOW STRENGTH ASPIRIN 81 MG PO (13:27)
[2024-07-06 15:07] VITALS: BP 108/48
--- NOTE | 2024-07-06 16:49 | CM ---
MD entered order for discharge.
[facility] set up .IMM reviewed with pt. IMM signed on chart.
She said she will have family drive her home.
PLAN Home with [facility]
[2024-07-06] MEDS: ZOLOFT 100 MG PO (18:00)
[2024-07-06] MEDS: ELIQUIS 5 MG PO (18:01)
== END 2024-07-06 19:07 | disposition home health service (06) | DRG 300 ==
LOC: 4 EAST ACU 00:32
PROVIDERS: Emergency Medicine; Internal Medicine; Nurse Practitioner; Surgery Vascular Surgery; ADMITTING PHYSICIAN Internal Medicine; ATTENDING PHYSICIAN Internal Medicine; CONSULT PHYSICIAN Psychiatry & Neurology Neurology; EMERGENCY PHYSICIAN Emergency Medicine; FAMILY PHYSICIAN Family Medicine; OTHER PHYSICIAN Surgery
PROC: B3111ZZ Fluoroscopy of Right Brachiocephalic-Subclavian Artery using Low Osmolar Contrast (ICD-10-PCS; 2024-07-04)
PROC: B3101ZZ Fluoroscopy of Thoracic Aorta using Low Osmolar Contrast (ICD-10-PCS; 2024-07-04)
PROC: B3121ZZ Fluoroscopy of Left Subclavian Artery using Low Osmolar Contrast (ICD-10-PCS; 2024-07-04)
PROC: B3151ZZ Fluoroscopy of Bilateral Common Carotid Arteries using Low Osmolar Contrast (ICD-10-PCS; 2024-07-04)
DX: I70.8 Atherosclerosis of other arteries (principal); G45.3 Amaurosis fugax; I10 Essential (primary) hypertension; E89.0 Postprocedural hypothyroidism; E78.00 Pure hypercholesterolemia, unspecified; I44.7 Left bundle-branch block, unspecified; I48.0 Paroxysmal atrial fibrillation; E66.01 Morbid (severe) obesity due to excess calories; I70.0 Atherosclerosis of aorta; I25.10 Atherosclerotic heart disease of native coronary artery without angina pectoris; H54.61 Unqualified visual loss, right eye, normal vision left eye; J44.9 Chronic obstructive pulmonary disease, unspecified; F32.9 Major depressive disorder, single episode, unspecified; Z96.651 Presence of right artificial knee joint; Z60.2 Problems related to living alone; Z68.36 Body mass index [BMI] 36.0-36.9, adult; Z79.01 Long term (current) use of anticoagulants; Z80.3 Family history of malignant neoplasm of breast; Z82.49 Family history of ischemic heart disease and other diseases of the circulatory system; Z87.891 Personal history of nicotine dependence; Z86.73 Personal history of transient ischemic attack (TIA), and cerebral infarction without residual deficits; Z79.890 Hormone replacement therapy
CPT/HCPCS: 70498; 71275; 75605; 75625; 80048; 80053; 82607; 82728; 82746; 83735; 84443; 84484; 85025; 85027; 85610; 85652; 85730; 93005; 93880; 99285; 99406; C1769; C1894; Q9967

== ENCOUNTER → 2024-08-10 10:32 | Outpatient (REF) | payer OTHER, SELFPAY ==
[2024-08-10 12:08] LABS: ALT (SGPT) 15 U/L (0-35); AST (SGOT) 22 U/L (14-36); HDL Cholesterol 52 mg/dl; LDL Cholesterol, Calculated 74 mg/dl; Total Cholesterol 157 mg/dl (50-199); Triglyceride 158 mg/dl (10-149); Very Low Density Lipoprotein 31 mg/dl (0-30)
== END ==
LOC: REG 10:32
PROVIDERS: ATTENDING PHYSICIAN Obstetrics & Gynecology
DX: G45.9 Transient cerebral ischemic attack, unspecified (principal)
CPT/HCPCS: 36415; 80061; 84450; 84460

== ENCOUNTER 2024-08-15 06:13 | Inpatient (IN) | payer OTHER, SELFPAY ==
[2024-08-10 09:01] VITALS: BMI 34.8
[2024-08-10 09:47] LABS: % Basophils 0.6 % (0-2); % Eosinophils 2.3 % (0-6); % Immature Granulocytes 0.5 % (0-0.5); % Lymphocytes 16.1 % (20.5-51.1); % Monocytes 5.6 % (1.7-9.3); % Neutrophils 74.9 % (42.2-75.2); Absolute Eosinophils 0.2 10^3/uL (0-0.7); Absolute Lymphocytes 1.1 10^3/uL (1.2-3.4); Absolute Monocytes 0.4 10^3/uL (0.1-0.6); Absolute Neutrophils 4.9 10^3/uL (1.4-6.5); Hematocrit 37.8 % (37.0-47.0); Hemoglobin 12.9 g/dL (12.0-16.0); Mean Corp Hgb Conc. 34.1 g/dL (33.0-37.0); Mean Corpuscular Hgb 31.5 pg (27.0-31.0); Mean Corpuscular Volume 92.2 fL (81.0-99.0); Mean Platelet Volume 9.9 fL (7.4-10.4); Nucleated Red Blood Cells % 0 %; Platelet Count 215 10^3/uL (130-400); Red Cell Dist. Width 13.9 % (11.5-14.5); White Blood Cell Count 6.6 10^3/uL (4.8-10.8)
[2024-08-10 10:00] LABS: PT 14.8 Sec (11.4-14.6)
[2024-08-10 10:01] LABS: APTT 34.1 Sec (23.4-35.0)
[2024-08-10 10:03] LABS: Blood Urea Nitrogen 12 mg/dl (7-17); Calcium 9.1 mg/dl (8.4-10.2); Carbon Dioxide 30 mmol/L (22-30); Chloride 102 mmol/L (98-107); Estimated Creatinine Clearance 68 ml/min; Glucose 92 mg/dl (70-99); Potassium 4.6 mmol/L (3.5-5.1); Sodium 139 mmol/L (135-145); eGFR > 60.00
[2024-08-10 18:09] LABS: ALT (SGPT) 15 U/L (0-35); AST (SGOT) 21 U/L (14-36); HDL Cholesterol 47 mg/dl; LDL Cholesterol, Calculated 80 mg/dl; Total Cholesterol 156 mg/dl (50-199); Triglyceride 148 mg/dl (10-149); Very Low Density Lipoprotein 29 mg/dl (0-30)
[2024-08-15] VITALS (37 sets, daily range): BP systolic 73–149; BP diastolic 48–105; BMI 36.7; BMI 37.8
[2024-08-15] MEDS: PERIDEX 0.12% ORAL RINSE 15 ML PO (07:09)
[2024-08-15] MEDS: BACTROBAN NASAL 1 GRAM NASAL (07:09)
--- NOTE | 2024-08-15 10:02 | W.IMMPOSTOP ---
Surgical Immed Post Op Note
-
Primary Surgeon: Aida
Assisting Surgeon: Nery
Pre-op Diagnosis: L subclavian stenosis
Post-op Diagnosis: L subclavian senosis at origin of aortic arch
Procedure Performed: LUE brachial artery cutdown, IVL, stent placement
Anesthesia Type: General/local
Specimen / Cultures: None
Estimated Blood Loss: 20 cc
Complications: None
Operative Findings: L subclavian stenosis at origin of aortic arch, IVL and stent placement
[2024-08-15] MEDS: SUBLIMAZE 50 MCG IV ×3 (10:16→11:13)
--- NOTE | 2024-08-15 10:24 | OR.RPT ---
Operative Report
Operative Report
Date of Operation: 08/15/2024
Pre Op Diagnosis:
1. High-grade calcified stenosis involving the proximal left subclavian artery
2. High-grade calcified stenosis involving the innominate origin
3. High-grade calcified stenosis involving the proximal right subclavian artery
4. Inability to accurately measure blood pressure peripherally
Post Op Diagnosis:
1. High-grade calcified stenosis involving the proximal left subclavian artery
2. High-grade calcified stenosis involving the innominate origin
3. High-grade calcified stenosis involving the proximal right subclavian artery
4. Inability to accurately measure blood pressure peripherally
Procedure:
1.) Intravascular lithotripsy to proximal left subclavian artery (10 mm x 30 mm L6 shockwave)
2.) Balloon angioplasty and stenting of proximal left subclavian artery (9 mm x 39 mm [place] VBX stent)
3.) Open exposure of left brachial artery for endovascular intervention with primary repair
4.) Introduce wire/catheter to aorta from left brachial artery access
5.) Diagnostic left subclavian arteriogram
Surgeon: Randy Parra III, MD
Machine Rough Rounder: Noah Gabriel MD PGY1
Anesthesia: Sedation with local
Fluoroscopy:
14.55 min
270 mGy
25.26 Gy.cm2
Complications: None
Estimated Blood Loss: 25 cc
History and Indications for Procedure: 79-year-old female with severe calcified atherosclerotic disease involving the aortic arch and great vessels. She has high-grade calcified stenoses involving the innominate, proximal right subclavian artery
and proximal left subclavian artery making accurate peripheral blood pressure measurements challenging. She was brought to the operating room for endovascular intervention on her left subclavian artery stenosis to achieve the goal of more accurate
blood pressure monitoring peripherally
Procedure in Detail: Joann Cotton was correctly identified and placed supine on the operating table. After adequate induction of anesthesia the left arm was abducted 90 degrees on an armboard. The left arm was then prepped and draped in the
usual sterile fashion. A timeout was performed with the nursing and anesthesia staff confirming the patient's identity as well as the nature and laterality of the procedure.
An incision was made in the left arm just proximal to the antecubital fossa. Sharp dissection and electrocautery were used to expose the brachial artery. There was a weak pulse in the brachial artery. Proximal and distal control was obtained with
vessel loops. The patient was systemically heparinized.
Under direct visualization the left brachial artery was punctured with a micropuncture needle pointed centrally. We then upsized to a 5 [place] sheath over a Bentson wire. A Gustavo catheter was advanced over the Bentson wire to the left subclavian
artery. A diagnostic arteriogram was performed through the Gustavo catheter which demonstrated a high-grade calcified stenosis involving the origin and proximal left subclavian artery. The more distal left subclavian artery and axillary artery were
patent and free of stenosis. The left vertebral artery was patent. The left internal mammary artery was patent.
Under roadmap guidance the left subclavian artery stenosis was crossed with a Glidewire and [place] catheter. The wire and catheter were advanced into the ascending aorta. A Storq wire was placed. A 7 [place] 45 cm sheath was then brought into
position with the radiopaque tip in the subclavian artery. The wire was exchanged out for a V18 which was also placed in the ascending aorta. Due to the heavily calcified nature of the left subclavian artery disease and in an effort to modify the
calcium to achieve maximum luminal gain with endovascular intervention I elected to proceed with intravascular lithotripsy. A 10 mm x 30 mm L6 shockwave balloon was placed across the calcified left subclavian artery stenosis under roadmap guidance.
Alternating rounds of lithotripsy pulse delivery at sub-nominal pressure and angioplasty at nominal pressure was performed across the stenosis. In between rounds of pulse delivery and angioplasty the balloon was deflated and repositioned under
roadmap guidance. All 300 pulses were delivered. Subsequent arteriogram demonstrated significant improvement with luminal gain and a reduction in the diameter stenosis but residual calcified plaque remained. Under roadmap guidance I then brought
into position a 9 mm x 39 mm [place] VBX stent. This was positioned in the desired location and deployed by inflating the balloon to nominal pressure. The balloon was then deflated and removed over the wire.
COMPLETION ARTERIOGRAM: Excellent technical result. Widely patent left subclavian artery stent with no residual stenosis identified. Brisk flow through the left subclavian artery. Widely patent left vertebral artery.
Satisfied with this result we concluded the procedure. The sheath was removed along with the wire from the left brachial artery access site. There was strong pulsatile inflow from the proximal left brachial artery. Backbleeding from the distal
left brachial artery was identified. The vessel loops were secured. The left brachial artery puncture site was repaired with 2 interrupted 7-0 Prolene sutures. The vessel loops were released. There was a strong pulse in the left brachial artery
proximal and distal to the suture line. Protamine was administered. The suture line was closely inspected and hemostasis was achieved. Hemostasis was also achieved in the wound bed. The wound was irrigated with saline solution. Local anesthesia
was infiltrated into the skin and subcutaneous tissue around the wound. The wound was then closed in layers and sterile dressings were applied.
The patient tolerated the procedure well and was taken to the recovery area in stable condition. Patient had an easily palpable left radial pulse at the conclusion of the case.
Attestation: I was present and responsible for the entire procedure.
Signed:
Randy Parra III, MD
[facility] Vascular Surgery
[phone] (cell)
--- NOTE | 2024-08-15 12:47 | SUR.PHASEI ---
Yesica dunlap aware that lue sx site raised and ecchymotic at this time. Yesica in to evaluate and Dr Parra to some see pt.
--- NOTE | 2024-08-15 12:52 | SUR.PHASEI ---
Yesica in after discussing with Dr Parra and abd with leslie wrap applied to lue. + left radial pulse. Pt denies any complaints.
[2024-08-15] MEDS: NSS 1000 IV (14:59)
[2024-08-15] MEDS: TYLENOL 650 MG PO (15:09)
--- NOTE | 2024-08-15 17:11 | PTCARENOTE ---
Pt admitted s/p L brachial artery cutdown, intravascular lithotripsy, and L subclavian stent. VSS, pt weaned to RA with SpO2 95%. LUE with dressing covered by leslie wrap at antecubital for reported hematoma-Dr. Parra aware. Doppler ulner and radial
artery. Pt reports normal sensation and no pain at surgery site. Pt does report pain in R back that is chronic but can be exacerbated with movement and position. Tylenol administered. Ambulated to BR with void after 6hr bedrest order complete.
[2024-08-15] MEDS: ROXICODONE 5 MG PO ×2 (17:29→21:32)
[2024-08-15] MEDS: MAGNESIUM OXIDE 500 MG PO (17:30)
[2024-08-15] MEDS: ZOLOFT 100 MG PO (17:30)
--- NOTE | 2024-08-15 18:13 | PTCARENOTE ---
Pt OOB to BR. After void, pt stated that she can feel something at her vaginal os. Discussed her pessary that Dr. Zarate placed recently that fell out. Discussed returning to Dr. Zarate for replacement.
--- NOTE | 2024-08-15 19:37 | PTCARENOTE ---
Received pt via handoff. Pt AAOx3, sitting up eating dinner able to MCBRIDE, afebrile.. NSR, radial and ulnar pulses present with doppler. 93% on RA w/ clear lung sounds. Hypoactive bowel sounds in all 4Q. Pt incontinent with urinary urgency. Left upper
extremity wrapped with [place] wrap w/ no drainage. Fluids running see flowsheet. Call lozano at bedside.
[2024-08-15] MEDS: ELIQUIS 5 MG PO (20:23)
[2024-08-15] MEDS: TYLENOL 1000 MG PO (20:38)
[2024-08-15] MEDS: CRESTOR 20 MG PO (21:59)
[2024-08-16] VITALS (13 sets, daily range): BP systolic 99–138; BP diastolic 46–78; BMI 37.6
--- NOTE | 2024-08-16 | PTCARENOTE ---
All systems reassessed. Pt AAOx3 watching television. C/o chronic lower back pain and was given prn pain medication.
--- NOTE | 2024-08-16 04:00 | PTCARENOTE ---
All systems reassessed. Hygiene performed and labs drawn. Call lozano at bedside.
[2024-08-16 04:14] LABS: Hematocrit 33.1 % (37.0-47.0); Hemoglobin 10.9 g/dL (12.0-16.0); Mean Corp Hgb Conc. 32.9 g/dL (33.0-37.0); Mean Corpuscular Hgb 31.2 pg (27.0-31.0); Mean Corpuscular Volume 94.8 fL (81.0-99.0); Mean Platelet Volume 9.8 fL (7.4-10.4); Platelet Count 195 10^3/uL (130-400); Red Blood Cell Count 3.49 10^6/uL (4.20-5.40); Red Cell Dist. Width 14.2 % (11.5-14.5)
[2024-08-16 04:44] LABS: Blood Urea Nitrogen 18 mg/dl (7-17); Calcium 8.7 mg/dl (8.4-10.2); Carbon Dioxide 25 mmol/L (22-30); Chloride 103 mmol/L (98-107); Estimated Creatinine Clearance 77 ml/min; Glucose 109 mg/dl (70-99); Potassium 4.7 mmol/L (3.5-5.1); Sodium 135 mmol/L (135-145); eGFR > 60.00
[2024-08-16] MEDS: SYNTHROID 50 MCG PO (06:09)
--- NOTE | 2024-08-16 07:50 | W.PN.UPDATE ---
Update Note
Progress Note Update
Seen on morning rounds just now. To me she demonstrated dysarthric speech, momentary aphasia at times. Somewhat incomprehensible answers to my questions at times. She moves all extremities well. L arm soft, inc c/d/i. 2+ palp L radial pulse.
Hand pink/warm.
Concern for new TIA/CVA event given speech issues. Stroke alert called. CTA and CT head.
Attempted to call her daughter - no answer.
--- NOTE | 2024-08-16 07:58 | W.PN.VS ---
Today's Communication / Plan
-
Patient seen and evaluated bedside with Dr. Santiago Crowder, below plan reviewed with attending
Assessment/Plan
-
Assessment: 79-year-old female POD #1 Intravascular lithotripsy to proximal left subclavian artery (10 mm x 30 mm L6 shockwave). Balloon angioplasty and stenting of proximal left subclavian artery (9 mm x 39 mm [place] VBX stent). Open exposure of left
brachial artery for endovascular intervention with primary repair. Introduce wire/catheter to aorta from left brachial artery access. Diagnostic left subclavian arteriogram
Plan:
Given noted garbled speech, dysarthria, and aphasia stroke alert activated per policy
Appreciate neurology recommendations
Stat CT and CTA head and neck
Subjective Data
-
Date of Service: August 16, 2024
Patient seen and examined at bedside. Noted garbled speech, stroke alert activated
Objective Data
-
Vital Signs
Temp Pulse Resp BP Pulse Ox
97.9 F 64 16 111/49 93
08/16/24 07:20 08/16/24 05:30 08/16/24 05:30 08/16/24 05:00 08/16/24 05:30
Intake and Output
08/15/24 08/16/24 08/17/24
06:59 06:59 06:59
Intake Total 480 / 480
Balance 480 / 480
Intake:
Oral fluids 100 / 100
IV fluids (Total) 380 / 380
NSS 380 / 380
Other:
Number of approximated LARGE 1
amounts of urine
Lab Results
08/16/24 03:55
08/16/24 03:55
Calcium 8.7 mg/dl (8.4-10.2) 08/16/24 03:55
AST Cancelled 08/10/24 10:34
ALT Cancelled 08/10/24 10:34
Physical Exam
-
Resting in bed
Noted intermittent aphasia and garbled speech with dysarthria
No tachycardia
No dyspnea on room air
Left arm with ecchymosis, no evidence of hematoma, palpable +1 left radial pulse, left hand warm
Bilateral upper extremities and lower extremities with equal strength and no drift noted
[2024-08-16 08:02] LABS: Glucose - Point of Care 96 mg/dl (70-99)
[2024-08-16] MEDS: VITAMIN B-12 1000 MCG PO (08:51)
[2024-08-16] MEDS: LOW STRENGTH ASPIRIN 81 MG PO (08:51)
[2024-08-16] MEDS: ELIQUIS 5 MG PO ×2 (08:51→20:06)
[2024-08-16] MEDS: VITAMIN D3 (cholecalciferol) 50 MCG PO (08:51)
--- NOTE | 2024-08-16 08:57 | CON.NEURO ---
Consultation
Order
Date of Consultation: 08/16/24
Requesting Provider: Mine Serrano CRNP
Reason for Consult: Stroke alert
Called in at 7:51 AM
Neurology Consultation Note.
HPI: This is an 79-year-old woman who presented to [facility] on 08/15/2024 for elective L subclavian artery stenting.
Stroke alert was activated due to noted speech and language dysfunction. According to medical personnel patient was noted to have dysarthria and some speech hesitancy before stroke alert activation. Based on nursing personnel report the same was
observed following subclavian skin tenting yesterday. The patient herself reports no change in speech, strength, vision or sensation.
VS: 100/75, 69, afebrile.
PDMP: none
MAR: Oxycodone 5 mg given on 08/15/24 at 17:29 and 21:32 fentanyl 50 mcg given on 08/15/24 at 10:16, 10:28, 11:13, Eliquis given on 08/16/24 at AM. 08:51
Labs: WBCs�11.0, hemoglobin�10.9, normal sodium, glucose�109
CT head wo contrast(08/16/2024)�mild atrophy, periventricular hypodensities.
CTA head/neck(08/16/2024)�no LVO, 50-69% bilateral ICA stenosis.
Brain MRI wo iman(10/25/2014)-acute left MCA territory infarcts.
LDL(08/10/2024) 74
PMH: PA A-Fib, L MCA stroke(2014), Right amaurosis fugax (06/2024), PAD, LBBB, HTN, DLP, hypothyroidism, IMAN, BMI�37.
PSH: L subclavian artery stent(08/15/2024), partial hysterectomy/leiomyoma resection/L salpingo-oophorectomy (06/01/2023), LINQ(01/16/2015), Flexible sigmoidoscopy(06/24/25), right thyroid lobectomy and isthmusectomy(2015), R TKA,
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
FH: Mother-COPD, sister�breast cancer.
All:NKDA
ROS: Constitutional: Negative. Negative for chills, fever and unexpected weight change.
HENT: Negative for ear pain, hearing loss, tinnitus and trouble swallowing.
Eyes: Negative. Negative for photophobia, pain and visual disturbance.
Respiratory: Negative for cough, choking and shortness of breath.
Cardiovascular: Negative for chest pain, palpitations and leg swelling.
Gastrointestinal: Negative for abdominal pain and vomiting.
Endocrine: Negative. Negative for cold intolerance.
Genitourinary: Negative for dysuria, flank pain and urgency.
Musculoskeletal: Negative for back pain, gait problem, neck pain and neck stiffness.
Skin: Negative for rash.
Allergic/Immunologic: Negative. Negative for immunocompromised state.
Neurological: Positive for transient dysarthria, chronic dysphasia
General: Well developed. In no acute distress.
Cardio: regular rate and rhythm without murmur. Extremities are without cyanosis or edema.
Neuro:
Mental Status: Alert, oriented to person, place, and date. Impaired attention. Difficulties doing serial sevens. Rare paraphasic errors. Good fund of knowledge. Follows complex requests across the midline. Comprehension, naming, and repetition
intact.
Cranial Nerves: Pupils are equally round and reactive to light. EOMs full. Visual ervin full to confrontation. No ptosis. No nystagmus. V1-V3 intact to light touch and pinprick bilaterally, symmetric. Face symmetric. Mildly impaired hearing
AU. The palate elevated well. SCMs and traps 5/5. Tongue midline. No dysarthria.
Motor: Normal bulk and tone. No pronator or arm drift. Strength 5/5 throughout. No clonus.
Reflexes: 3+ throughout the upper extremities and knees. Positive grasp on the right; bilateral suprapatellar's
Sensory: Preserved vibration at the ankles
Coordination: No dysmetria or tremor.
Gait: deferred
Assessment and Plan:
I. Transient dysarthria (toxic versus vascular). Not a candidate for IV thrombolysis due to transient nature of the symptoms.
II. Chronic left MCA infarct (2014) with residual mild expressive dysphasia
III. Mild encephalopathy(vascular, toxic)
IV. PA A-Fib
V. 50-69% bilateral ICA stenosis.
. Hyperreflexia
-Continue Telemetry monitoring.
-Avoid cerebral hypoperfusion in view of intracranial atherosclerosis
-Brain MRI without iman when feasible
-Continue rosuvastatin 20 mg nightly and Eliquis 5 mg twice daily
-PT/speech therapy
-Outpatient neurology follow-up in 1-2 weeks.
-Vascular surgery follow-up
-Please recall neurology services any questions or concerns
I personally reviewed all radiology and labs along with past medical records pertinent to current medical problems. Total time spent in patient care is 60 minutes.
Thank you for allowing us to participate in the care of this patient. Please do not hesitate to contact us with any questions or concerns.
Subjective/Objective
Subjective Data
Date of Service: August 16, 2024
Objective Data
Vital Signs
Temp Pulse Resp BP Pulse Ox
36.6 C 70 21 100/75 98
08/16/24 07:20 08/16/24 08:46 08/16/24 08:46 08/16/24 08:46 08/16/24 08:46
Lab Results
08/16/24 03:55
08/16/24 03:55
PT 14.8 Sec (11.4-14.6) H 08/10/24 09:26
INR 1.10 08/10/24 09:26
APTT 34.1 Sec (23.4-35.0) 08/10/24 09:26
Sodium 135 mmol/L (135-145) 08/16/24 03:55
Potassium 4.7 mmol/L (3.5-5.1) 08/16/24 03:55
BUN 18 mg/dl (7-17) H 08/16/24 03:55
Glucose 109 mg/dl (70-99) H 08/16/24 03:55
Calcium 8.7 mg/dl (8.4-10.2) 08/16/24 03:55
LDL Cholesterol, Calc Cancelled 08/10/24 10:34
Patient Allergies
No Known Allergies Allergy (Verified 08/15/24 07:27)
Medications
-
Active Medications
Generic Name Dose Route Start Last Admin
Trade Name Freq PRN Reason Stop Dose Admin
Acetaminophen 1,000 mg 08/15/24 17:23 08/15/24 20:38
Acetaminophen 500 Mg Tablet PO 09/12/24 17:22 1,000 mg
Q6HPRN PRN Administration
mild pain or temp >/= 100.4 F
Apixaban 5 mg 08/15/24 20:00 08/16/24 08:51
Apixaban (Eliquis) 5 Mg Tablet PO 09/12/24 19:59 5 mg
BID MARLO Administration
Aspirin 81 mg 08/16/24 08:00 08/16/24 08:51
Aspirin 81 Mg Chewable Tablet PO 09/13/24 07:59 81 mg
DAILY MARLO Administration
Bisacodyl 10 mg 08/15/24 08:39
Bisacodyl 10 Mg Rectal Suppository RECTAL 09/12/24 08:38
DAILYPRN PRN
constipation
Cholecalciferol 50 mcg 08/16/24 08:00 08/16/24 08:51
Cholecalciferol (Vitamin D3) 50 Mcg Tablet (2,000 Units) PO 09/13/24 07:59 50 mcg
DAILY MARLO Administration
Cyanocobalamin 1,000 mcg 08/16/24 08:00 08/16/24 08:51
Cyanocobalamin 1,000 Mcg Tablet PO 09/13/24 07:59 1,000 mcg
DAILY MARLO Administration
Levothyroxine Sodium 50 mcg 08/16/24 06:00 08/16/24 06:09
Levothyroxine 50 Mcg Tablet PO 09/13/24 05:59 50 mcg
DAILY@0600 MARLO Administration
Magnesium Oxide 500 mg 08/15/24 18:00 08/15/24 17:30
Magnesium Oxide 500 Mg Tablet PO 09/12/24 17:59 500 mg
QPM MARLO Administration
Morphine Sulfate 2 mg 08/15/24 08:44
Morphine 2 Mg/Ml Syringe IV 08/29/24 08:43
Q2HPRN PRN
severe pain
Oxycodone HCl 5 mg 08/15/24 17:22 08/15/24 21:32
Oxycodone 5 Mg Regular Release Tablet PO 08/29/24 17:21 5 mg
Q4HPRN PRN Administration
moderate pain
Rosuvastatin Calcium 20 mg 08/15/24 22:00 08/15/24 21:59
Rosuvastatin (Crestor) 20 Mg Tablet PO 09/12/24 21:59 20 mg
HS MARLO Administration
Sertraline HCl 100 mg 08/15/24 18:00 08/15/24 17:30
Sertraline 100 Mg Tablet PO 09/12/24 17:59 100 mg
QPM MARLO Administration
Sodium Chloride 0 flush 08/15/24 08:00
Sodium Chloride 0.9% (Flush) Syringe IV 09/12/24 07:59
PER PROTOCOL MARLO
Home Medications
�Medication �Instructions �Recorded
cholecalciferol (vitamin D3) 50 2,000 unit PO DAILY Supplement 10/24/14
mcg (2,000 unit) tablet
cyanocobalamin (vitamin B-12) 1,000 mcg PO DAILY Supplement 10/24/14
1,000 mcg tablet
rosuvastatin 20 mg tablet 20 mg PO HS High Cholesterol 09/08/16
sertraline 100 mg tablet 100 mg PO QPM Depression 07/05/17
acetaminophen 500 mg capsule 1,000 mg PO Q6HPRN PRN mild pain 05/27/23
levothyroxine 50 mcg tablet 50 mcg PO DAILY Thyroid 05/27/23
magnesium oxide 500 mg PO QPM Supplement 06/28/24
apixaban 5 mg tablet (Eliquis) 5 mg PO BID Blood Clot 07/06/24
Prevention/Tx #60 tabs
aspirin 81 mg chewable tablet 81 mg PO DAILY blood thinner 08/15/24
--- NOTE | 2024-08-16 10:26 | VNURNOTE ---
Chart reviewed. [facility], FIELD IDENTIFICATION SPECIALIST, OT. Will continue to follow hospital course and DC plans.
--- NOTE | 2024-08-16 10:48 | CM ---
CM following re: discharge planning.
Reviewed pt's chart, met with pt.
Pt is an 79 year old female, admitted with OBS status and primary dx of POD #1 L subclavian artery stenting. OBS status explained to the pt, pt expressed her understanding, CRANE letter signed, placed on chart, pt has a copy.
Pt reports she lives alone in a [facility] 1st floor, no steps, has a daughter and she moved with her family to [place]. Pt reports she does not have any immediate family members locally, has supportive friends and neighbors. Pt reports she uses a cane and a
walker as needed, is current with [facility].
[facility] liaison following.
PCP: Nelson Hilton
pharmacy: [facility].
D/C plan: home with resumptions of [facility] and family/friends support. Pt stated her friend will transport at discharge.
CM will follow with discharge plan updates as hospitalization progresses
[2024-08-16] MEDS: TYLENOL 1000 MG PO (11:46)
--- NOTE | 2024-08-16 14:59 | PTCARENOTE ---
Rec'd care of patient at 0700. RN at bedside with Vascular surgery team. Patient aphasic. Patient with known hx of cva. Aphasia observed by prior RNs, however, patient stating that this is new for her 'since after the arm'. Speech incomprehensible
for brief period. Stroke alert called. NIH-2. Head ct and cta completed. Neuro at bedside to observed patient after ct. Symptoms resolved. Daughter updated over the phone by vascular surgeon. Vitals stable. Patient alert and oriented. MAEx4.
Ambulatory in room with supervision. NSR with first degree avb and BBB on tele monitor. Pulses palpable. LUE neurovascular check wnl. Ponce wrap removed by vascular surgery. Ecchymotic, incision approximated with surgical adhesive. Lung sounds
diminished, coarse in b/l base. Pulse ox 97-98% on RA. +BS. Passed nursing swallow eval. Appetite good. Voiding in bathroom. Peripad on for stress incontinence. Peripheral INT capped. MRI brain ordered.
[2024-08-16] MEDS: MAGNESIUM OXIDE 500 MG PO (17:11)
[2024-08-16] MEDS: ZOLOFT 100 MG PO (17:12)
--- NOTE | 2024-08-16 19:28 | PTCARENOTE ---
Received pt via handoff. Pt AAOx3 with some expressive aphasia, afebrile. NSR, radial and ulnar pulses present with doppler. 95% on RA w/ clear lung sounds. Hypoactive bowel sounds in all 4Q. Pt incontinent with urinary urgency. Left upper extremity
has surgical adhesive with no drainage. No gtts running. Call lozano at bedside.
[2024-08-16] MEDS: CRESTOR 20 MG PO (23:18)
[2024-08-17] VITALS (8 sets, daily range): BP systolic 91–144; BP diastolic 48–74; PULSE 77; BMI 37.3
--- NOTE | 2024-08-17 | PTCARENOTE ---
All systems reassessed, pt still has slight expressive aphasia, otherwise unchanged from last assessment. Call lozano at bedside.
[2024-08-17] MEDS: ROXICODONE 5 MG PO (02:49)
[2024-08-17 03:45] LABS: Mean Corp Hgb Conc. 32.4 g/dL (33.0-37.0); Mean Corpuscular Hgb 31.1 pg (27.0-31.0); Mean Platelet Volume 10.1 fL (7.4-10.4); Platelet Count 184 10^3/uL (130-400); Red Blood Cell Count 3.54 10^6/uL (4.20-5.40); Red Cell Dist. Width 14.1 % (11.5-14.5); White Blood Cell Count 7.9 10^3/uL (4.8-10.8)
--- NOTE | 2024-08-17 04:00 | PTCARENOTE ---
All systems reassessed. Labs drawn and hygiene performed. Call lozano at bedside.
[2024-08-17 04:05] LABS: Blood Urea Nitrogen 21 mg/dl (7-17); Calcium 8.7 mg/dl (8.4-10.2); Carbon Dioxide 27 mmol/L (22-30); Chloride 103 mmol/L (98-107); Estimated Creatinine Clearance 76 ml/min; Glucose 82 mg/dl (70-99); Potassium 4.3 mmol/L (3.5-5.1); Sodium 137 mmol/L (135-145); eGFR > 60.00
[2024-08-17] MEDS: SYNTHROID 50 MCG PO (05:24)
[2024-08-17] MEDS: LOW STRENGTH ASPIRIN 81 MG PO (07:39)
[2024-08-17] MEDS: VITAMIN D3 (cholecalciferol) 50 MCG PO (07:39)
[2024-08-17] MEDS: VITAMIN B-12 1000 MCG PO (07:39)
[2024-08-17] MEDS: ELIQUIS 5 MG PO (07:39)
--- NOTE | 2024-08-17 07:55 | W.PN.VS ---
Addendum entered and electronically signed by RANDAL Luu 08/17/24 16:39:
Stroke workup complete, MRI negative for acute infarct. 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 Provided prescription to continue outpatient
speech therapy. Reviewed with attending Dr. Santiago Crowder patient is cleared for discharge home.
Addendum entered and electronically signed by Santiago Crowder MD 08/17/24 13:36:
Seen and examined with DONNY Serrano earlier today. Findings and plan as discussed and noted below.
Original Note:
Today's Communication / Plan
-
Patient seen evaluated bedside with Dr. Santiago Crowder, below plan reviewed with attending
Assessment/Plan
-
Assessment: 79-year-old female POD #2 Intravascular lithotripsy to proximal left subclavian artery (10 mm x 30 mm L6 shockwave). Balloon angioplasty and stenting of proximal left subclavian artery (9 mm x 39 mm [place] VBX stent). Open exposure of left
brachial artery for endovascular intervention with primary repair. Introduce wire/catheter to aorta from left brachial artery access. Diagnostic left subclavian arteriogram
Plan:
MRI of brain pending per neurology recommendations
PT/ST/OT evaluation
Continue antiplatelet medication and home oral anticoagulation, no recommendation from neurology to hold anticoagulation
Continue inpatient until completion of stroke workup
Subjective Data
-
Date of Service: August 17, 2024
Patient seen and examined at bedside, patient offers no complaints. Reports adequate postoperative pain management, but does endorse pain with palpation over incision site. Does endorse that her speech is at baseline, following aphasia event she
was able to tell us that she has misplaced words at baseline and see speech therapy in the outpatient setting. She does reside alone and her daughter does not live within the state.
Objective Data
-
Vital Signs
Temp Pulse Resp BP Pulse Ox
98.2 F 66 19 135/50 95
08/17/24 03:35 08/17/24 07:42 08/17/24 07:42 08/17/24 07:42 08/17/24 07:42
Intake and Output
08/16/24 08/17/24 08/18/24
06:59 06:59 06:59
Intake Total 480 / 480 1140 / 1140
Balance 480 / 480 1140 / 1140
Intake:
Oral fluids 100 / 100 1140 / 1140
IV fluids (Total) 380 / 380
NSS 380 / 380
Other:
Number of approximated MODERATE 1
amounts of urine
Number of approximated LARGE 1 1
amounts of urine
Lab Results
08/17/24 02:58
08/17/24 02:58
Calcium 8.7 mg/dl (8.4-10.2) 08/17/24 02:58
AST Cancelled 08/10/24 10:34
ALT Cancelled 08/10/24 10:34
Physical Exam
-
Resting in bed, no apparent distress
Patient with improved speech but can still appreciate some level of aphasia and dysarthria, although patient notes this is her baseline speech, additionally she seems very forgetful
No tachycardia
No dyspnea on room air
Left arm with ecchymosis, no evidence of hematoma, palpable +1 left radial pulse, left hand warm
Bilateral upper extremities and lower extremities with equal strength and no drift noted
--- NOTE | 2024-08-17 09:00 | PTCARENOTE ---
Rec'd care of patient at 0700. Patient alert and oriented. NIH-1 d/t expressive aphasia. MRI of the brain ordered for today. Speech/PT/OT consults placed. NSR on tele monitor. VSS. OOB to chair for breakfast. Ambulating with supervision in room.
Call lozano within reach; ringing appropriately.
--- NOTE | 2024-08-17 10:45 | PTCARENOTE ---
Patient sent for mri of brain.
--- NOTE | 2024-08-17 11:14 | PTOTSP ---
Addendum entered and electronically signed by ST Matthew 08/17/24 14:32:
error
Original Note:
WORKERS COMPENSATION LEGAL SECRETARY Evaluations
No signs of oral/pharyngeal dysphagia or aspiration with clinical bedside swallowing evaluation.
Quick Aphasia Battery Form 1 QAB overall =8.38. Patient with at least mild mixed aphasia with expressive language deficits (verbal, written, oral reading) greater than receptive language deficits (sentence comprehension). Insight reduced as
patient attributed this to normal age related word finding changes.
Patient lived alone prior to admission. Informal signs concerning for cognitive changes to insight/awareness noted during session. Will complete further evaluation of cognitive linguistic skills as able/appropriate. Suspect patient would benefit
from higher level cognitive linguistic tasks given language changes noted today.
Recommend:
1. Regular, Thin Liquids
2. Medications as best tolerated
3. WORKERS COMPENSATION LEGAL SECRETARY evaluation/tx at the acute care level and after D/C
4. Cognitive linguistic evaluation as able/appropriate
--- NOTE | 2024-08-17 12:08 | PTCARENOTE ---
Patient back in room from mri.
--- NOTE | 2024-08-17 12:14 | CM ---
Addendum entered by Sang Ramírez 08/17/24 16:02:
CM spoke to pt's daughter Kassy and she stated she lives in [place] and she is in contact with her mother 5-6 times per day. Per Kassy, pt has private caregiver services one day per week and daughter stated she is going to extend caregiver services daily.
Per daughter, her friend Susan helps the pt and she will transport pt home at discharge.
[facility] will resume [facility] services.
Please fax discharge instructions to [facility] at [phone]
D/C plan: home with [facility], caregiver services and family/friends support. Daughter's friend Susan to transport pt home.
Original Note:
CM following re: discharge planning.
Reviewed pt's chart, met with pt.
Pt reports she feels much better. MRI today. Continue supportive care.
Pt is inpatient status now. IMM reviewed, placed on chart, pt has a copy.
PT and OT evaluations pending.
PT is active with [facility] and pt prefers to return back home at discharge with [facility]. [facility] liaison following.
D/C plan: anticipated home with [facility] and family/friends support. Friend to transport at discharge.
CM will follow with discharge plan updates as needed.
--- NOTE | 2024-08-17 13:51 | PTCARENOTE ---
Patient ambulatory in [place] with PT.
[2024-08-17] MEDS: TYLENOL 1000 MG PO (14:01)
--- NOTE | 2024-08-17 17:11 | W.DS.TRANS ---
DC Summary - Trust Accounts Supervisor
-
Discharge Instructions:
Sleep Apnea Risk Intermediate
Discharge Diagnosis/Procedures Intravascular lithotripsy to proximal left
subclavian artery (10 mm x 30 mm L6 shockwave)
Balloon angioplasty and stenting of proximal
left subclavian artery (9 mm x 39 mm [place] VBX
stent)
Open exposure of left brachial artery for
endovascular intervention with primary repair
Diet As tolerated
Activity No strenuous activity
Driving Restrictions No driving for 2 weeks
Bathing Restrictions OK to Shower
Other Services VN,ST
Instructions:
Stand-Alone Forms: DC Instr - Vascular OR
Changes to Home Medications: No
Discharge Medications:
DC Medications w/original date entered in [employer]
cholecalciferol (vitamin D3) 50 mcg (2,000 unit) tablet 2,000 unit PO DAILY Supplement 10/24/14
cyanocobalamin (vitamin B-12) 1,000 mcg tablet 1,000 mcg PO DAILY Supplement 10/24/14
rosuvastatin 20 mg tablet 20 mg PO HS High Cholesterol 09/08/16
sertraline 100 mg tablet 100 mg PO QPM Depression 07/05/17
acetaminophen 500 mg capsule 1,000 mg PO Q6HPRN PRN mild pain 05/27/23
levothyroxine 50 mcg tablet 50 mcg PO DAILY Thyroid 05/27/23
magnesium oxide 500 mg PO QPM Supplement 06/28/24
apixaban 5 mg tablet (Eliquis) 5 mg PO BID Blood Clot Prevention/Tx #60 tabs 07/06/24
aspirin 81 mg chewable tablet 81 mg PO DAILY blood thinner 08/15/24
Home Medication Changes
Pending Results: No
--- NOTE | 2024-08-21 15:01 | W.DCSUMMARY ---
Discharge Summary
Discharge Data
Date of Admission: 08/15/24
Date of Discharge: 08/17/24
-
Pending Results: No
Hospital Course
Attending: Randy Parra III, MD
Consultants: Pulmonary medicine, neurologist
Allergies: NKDA
Procedure with date: Intravascular lithotripsy to proximal left subclavian artery (10 mm x 30 mm L6 shockwave. Balloon angioplasty and stenting of proximal left subclavian artery (9 mm x 39 mm [place] VBX stent). Open exposure of left brachial artery
for endovascular intervention with primary repair. Introduce wire/catheter to aorta from left brachial artery access. Diagnostic left subclavian arteriogram. 08/15/[address] Randy Parra III, MD
History of present illness: The patient is an 79-year-old female with multiple medical conditions including: Left clavian artery stenosis, stroke, high cholesterol, arthritis, and hypertension. Patient presented on 08/15/2024 for scheduled procedure
with Dr. Randy Parra III. Patient presented at baseline health with no reports of recent illness or trauma.
Hospital Course: Briefly, the patient underwent scheduled left common artery stent without complications, and recovered in PACU. Following recovery phase one and two patient was transferred to telemetry floor for continued hemodynamic monitoring.
POD #1 (08/16/2024) Upon morning rounds patient noted to have severe dysarthric speech, with momentary aphasia, and somewhat incomprehensible speech to pertinent questions, prompting stroke alert activation per protocol. A CT angio of head and neck
and CT head was obtained that did not show any acute findings. Patient does endorse that she does have some baseline aphasia but not dysarthria and did note that she was struggling with keywords during timeframe of stroke activation. As part of
stroke alert neurology was consulted who recommended MRI of brain for definitive diagnosis. As the day progressed speech markedly improved. Left arm surgical incision with mild ecchymosis, no evidence of hematoma, palpable +1 left radial pulse,
and left hand warm. POD #2 (08/17/2024) patient continues with home oral anticoagulation and antiplatelet medication. MRI of brain resulted with no evidence of acute infarct. Left upper extremity with stable ecchymosis and no evidence of
hematoma. Cleared for discharge to home by his physical therapy and speech therapy.
Patient able to ambulate without difficulty or incident. Patient stable for discharge to home.
Prescriptions and follow up appointment are included in the DC summary director acute note. All instructions were given to the patient in both written and verbal form and the patient expressed understanding.
Discharge Plan
-
Patient Disposition: Home with Home Care
Discharge Diagnosis/Procedures: Intravascular lithotripsy to proximal left subclavian artery (10 mm x 30 mm L6 shockwave)
Balloon angioplasty and stenting of proximal left subclavian artery (9 mm x 39 mm Zare[place]ath VBX stent)
Open exposure of left brachial artery for endovascular intervention with primary repair
Condition: Good
Diet: As tolerated
Activity: No strenuous activity
Driving Restrictions: No driving for 2 weeks
Bathing Restrictions: OK to Shower
Other Services: VN and ST
Stand Alone Forms: DC Instr - Vascular OR
Referrals:
Maria Del Carmen Jones PA-C [Specified Professional Personl] - 08/30/24 9:30 am (Vascular surgery office follow-up)
Nelson Hilton MD [Family Provider] -
Prescriptions:
Continued
cyanocobalamin (vitamin B-12) 1,000 MCG tablet
1,000 mcg PO DAILY
cholecalciferol (vitamin D3) 2,000 UNITS tablet
2,000 unit PO DAILY
rosuvastatin 20 MG tablet
20 mg PO HS
sertraline 100 MG tablet
100 mg PO QPM
levothyroxine 50 mcg Tablet
50 mcg PO DAILY
acetaminophen 500 mg Capsule
1,000 mg PO Q6HPRN PRN (Reason: mild pain)
magnesium oxide 500 mg magnesium Tablet
500 mg PO QPM
Eliquis 5 mg Tablet
5 mg PO BID Qty: 60 0RF
aspirin 81 mg tablet,chewable
81 mg PO DAILY
Discharge Orders:
Discharge Patient (As Directed); Ordered 08/17/24
Ordered By: Mine Serrano
Discharge Date and Time
Discharge Date/Time: 08/17/24 17:32
Print Language: MAURITIAN
== END 2024-08-17 17:32 | disposition home health service (06) | DRG 279 ==
LOC: ICU 06:13
PROVIDERS: Nurse Practitioner; Nurse Practitioner Acute Care; ADMITTING PHYSICIAN Surgery Vascular Surgery; CONSULT PHYSICIAN Psychiatry & Neurology Neurology; FAMILY PHYSICIAN Family Medicine
PROC: B3121ZZ Fluoroscopy of Left Subclavian Artery using Low Osmolar Contrast (ICD-10-PCS; 2024-08-15)
PROC: 03F Upper Arteries, Fragmentation (ICD-10-PCS; 2024-08-15)
PROC: 037Y3DZ Dilation of Upper Artery with Intraluminal Device, Percutaneous Approach (ICD-10-PCS; 2024-08-15)
DX: I70.8 Atherosclerosis of other arteries (principal); I48.0 Paroxysmal atrial fibrillation; E03.9 Hypothyroidism, unspecified; I10 Essential (primary) hypertension; I44.7 Left bundle-branch block, unspecified; F41.1 Generalized anxiety disorder; I73.9 Peripheral vascular disease, unspecified; E78.00 Pure hypercholesterolemia, unspecified; M19.90 Unspecified osteoarthritis, unspecified site; R29.2 Abnormal reflex; I65.23 Occlusion and stenosis of bilateral carotid arteries; Z60.2 Problems related to living alone; Z96.651 Presence of right artificial knee joint; I69.321 Dysphasia following cerebral infarction; I69.320 Aphasia following cerebral infarction; Z82.5 Family history of asthma and other chronic lower respiratory diseases; Z80.3 Family history of malignant neoplasm of breast; Z87.891 Personal history of nicotine dependence; Z90.711 Acquired absence of uterus with remaining cervical stump; Z79.890 Hormone replacement therapy
CPT/HCPCS: 36225; 36415; 37236; 70450; 70496; 70498; 70551; 71046; 80048; 80061; 82962; 84450; 84460; 85025; 85027; 85610; 85730; 86850; 86900; 86901; 92523; 92610; 97116; 97162; 97167; C1769; C1874; C1894; Q9967

== ENCOUNTER 2025-01-11 10:05 | Inpatient (IN) | payer OTHER, SELFPAY ==
[2024-12-29 11:08] LABS: Hematocrit 39.4 % (37.0-47.0); Mean Corpuscular Hgb 30.5 pg (27.0-31.0); Mean Corpuscular Volume 92.5 fL (81.0-99.0); Mean Platelet Volume 9.8 fL (7.4-10.4); Platelet Count 231 10^3/uL (130-400); Red Blood Cell Count 4.26 10^6/uL (4.20-5.40); Red Cell Dist. Width 13.6 % (11.5-14.5)
[2024-12-29 11:25] LABS: Blood Urea Nitrogen 11 mg/dl (7-17); Calcium 9.3 mg/dl (8.4-10.2); Carbon Dioxide 26 mmol/L (22-30); Chloride 108 mmol/L (98-107); Glucose 97 mg/dl (70-99); Potassium 4.5 mmol/L (3.5-5.1); Sodium 142 mmol/L (135-145); eGFR > 60.00
[2024-12-29 12:55] VITALS: BMI 33.4
[2025-01-08] VITALS (14 sets, daily range): BP systolic 123–165; BP diastolic 46–95; BMI 33.4; BMI 33.3
[2025-01-08] MEDS: HEPARIN 5000 UNITS SC (06:42)
[2025-01-08] MEDS: Pyridium 200 MG PO (06:43)
[2025-01-08] MEDS: NORMOSOL-R/PLASMALYTE-A 1000 IV ×2 (06:43→11:32)
[2025-01-08 08:06] LABS: Urine Albumin 2+ (Neg - Trace); Urine Bilirubin Negative (Negative); Urine Character Cloudy (Clear); Urine Color Yellow; Urine Glucose Negative (Negative); Urine Ketone Negative (Negative); Urine Leukocyte 3+ (Negative); Urine Nitrite Negative (Negative); Urine Occult Blood 3+ (Negative); Urine Urobilinogen Negative (Neg - 1+)
[2025-01-08 08:58] LABS: Urine Red Blood Cell 0-2 /HPF (0-2); Urine Squamous Cell 0-2 /LPF (Few); Urine White Cell 50-60 /HPF (0-5)
[2025-01-08 08:59] LABS: Urine Bacteria Few (Negative)
[2025-01-08] MEDS: ZOFRAN 4 MG IV (09:35)
[2025-01-08] MEDS: COMPAZINE 5 MG IV (09:48)
[2025-01-08] MEDS: TORADOL 15 MG IV ×3 (09:59→21:04)
[2025-01-08] MEDS: DILAUDID 0.25 MG IV (11:33)
[2025-01-08] MEDS: LOVENOX 40 MG SC (17:37)
[2025-01-08] MEDS: COLACE 100 MG PO (20:49)
[2025-01-08] MEDS: ZETIA 10 MG PO (21:04)
[2025-01-09] MEDS: ROXICODONE 5 MG PO ×2 (01:31→18:20)
[2025-01-09] MEDS: TORADOL 15 MG IV (03:11)
[2025-01-09] MEDS: SYNTHROID 50 MCG PO (05:08)
--- NOTE | 2025-01-09 05:15 | PTCARENOTE ---
Per MD order, Indwelling russell catheter and packing removed. Pt d/t void by 11:15. Discussed with patient.
[2025-01-09] MEDS: DILAUDID 0.25 MG IV (05:22)
[2025-01-09 07:10] VITALS: BP 139/55
--- NOTE | 2025-01-09 07:12 | W.PN.GYN ---
Today's Communication / Plan
-
Assessment and Plan:
79 yo woman admitted POD 1 s/p uncomplicated colpectomy with colpocleisis, posterior colporrhaphy and midurethral sling for pelvic organ prolapse and urinary incontinence. Overnight, patient had a Desat to 87% on room air when oxygen was removed and
patient was confused this morning. Once oxygen was replaced and patient was more comfortable, she was alert and oriented to person/place however was confused about the date. The patient has multiple medical co-morbidities, a history of neurovascular
disease and worsening cognitive decline.
1. Postoperative Care
Hep lock IV
Regular diet
DVT ppx: lovenox and scds, early ambulation
CBC: pending
BMP: pending
UOP: adequate overnight
Parra catheter removed
2. Pulmonary
-Consult respiratory therapy to help decrease O2
-Incentive spirometer
3. Cognitive status
-Consult medicine to evaluate for recommendations
4. Anticoagulation
-patient may hold Eliquis until home going
Subjective:
Patient was confused when I presented for rounds this morning. She was alert to self however did not know date or time. She denies any pain, minimal vaginal bleeding. she denies shortness of breath. foely was removed. denies chest pain, fevers, leg
tenderness or swelling.
Objective:
Intake and Output
01/07/25 01/08/25 01/09/25 01/10/25
06:59 06:59 06:59 06:59
Intake Total 1800 / 1800
Output Total 1350 / 1350
Balance 450 / 450
Intake:
Oral fluids 1800 / 1800
Output:
Urine, Parra 1350 / 1350
Vital Signs
Temp Pulse Resp BP Pulse Ox
97.7 F 76 18 127/95 87
01/08/25 23:20 01/08/25 23:20 01/08/25 23:20 01/08/25 23:20 01/09/25 06:06
Lab Results
01/09/25 06:39
Exam:
Abdomen: non-distended, nontender
: minimal spotting on pad
LE: no edema, nontender, no erythema
[2025-01-09 07:17] LABS: Hematocrit 31.7 % (37.0-47.0); Hemoglobin 10.4 g/dL (12.0-16.0); Mean Corp Hgb Conc. 32.8 g/dL (33.0-37.0); Mean Corpuscular Hgb 30.6 pg (27.0-31.0); Mean Corpuscular Volume 93.2 fL (81.0-99.0); Mean Platelet Volume 9.7 fL (7.4-10.4); Platelet Count 191 10^3/uL (130-400); Red Cell Dist. Width 13.5 % (11.5-14.5); White Blood Cell Count 10.9 10^3/uL (4.8-10.8)
[2025-01-09 07:47] LABS: Blood Urea Nitrogen 17 mg/dl (7-17); Carbon Dioxide 25 mmol/L (22-30); Chloride 107 mmol/L (98-107); Estimated Creatinine Clearance 69 ml/min; Potassium 4.1 mmol/L (3.5-5.1); Sodium 138 mmol/L (135-145)
[2025-01-09] MEDS: ZOLOFT 150 MG PO (08:29)
[2025-01-09] MEDS: COLACE 100 MG PO ×2 (08:29→20:03)
[2025-01-09] MEDS: LOW STRENGTH ASPIRIN 81 MG PO (08:30)
--- NOTE | 2025-01-09 09:53 | CON.HOSP ---
Consultation
-
Reason for Consultation: hypoxia, altered mental status
Family Physician
-
Family Physician: Nelson Hilton
Chief Complaint
-
hypoxia, altered mental status
History of Present Illness
79 y/o F with PMHx:
Former smoker (possible COPD)
CAD
CVA in 2004
TIA
R THERESE
High-grade calcified stenosis involving the proximal left subclavian artery, innominate origin, proximal right subclavian artery s/p intravascular lithotripsy to proximal left subclavian artery (10 mm x 30 mm L6 shockwave), Balloon angioplasty and
stenting of proximal left subclavian artery (9 mm x 39 mm [place] VBX stent), Open exposure of left brachial artery for endovascular intervention with primary repair in August 2024
Essential hypertension
Paroxysmal atrial fibrillation
Hypothyroidism
HLD
Stress incontinence
Atrophic vulvovaginitis
Neurovascular disease with recent cognitive decline
who is POD#1 s/p uncomplicated colpectomy with colpocleisis, posterior colporrhaphy and midurethral sling for pelvic organ prolapse and urinary incontinence. Overnight the patient desaturated to 87%. She had confusion this morning specifically
about the date. As per her friend at bedside the patient is much more confused than she is at baseline. Sometimes she 'misses a beat, but nothing like this.' Currently the patient is without acute complaints. She denies chest pain, shortness of
breath, palpitations, nausea, vomiting, diarrhea, abdominal pain, lightheadedness, rash.
Medical History
Past Medical History
Past Medical History: Reports Other (as per HPI)
Past Surgical History: Reports Other (as per HPI)
Social History
Tobacco: Former Smoker
Alcohol: None
Drug: None
Allergies / Home Medications
Allergies reflects when Allergies were last updated in [employer].
Home Medications with original date entered in [employer]
Allergy/Medication List:
Allergies
Allergy/AdvReac Type Severity Reaction Status Date / Time
No Known Allergies Allergy Verified 01/08/25 06:22
Home Medications
cholecalciferol (vitamin D3) 50 mcg (2,000 unit) tablet 2,000 unit PO DAILY Supplement 10/24/14
cyanocobalamin (vitamin B-12) 1,000 mcg tablet 1,000 mcg PO DAILY Supplement 10/24/14
rosuvastatin 20 mg tablet 20 mg PO HS High Cholesterol 09/08/16
acetaminophen 500 mg capsule 1,000 mg PO Q6HPRN PRN mild pain 05/27/23
levothyroxine 50 mcg tablet 50 mcg PO DAILY Thyroid 05/27/23
magnesium oxide 500 mg PO QPM Supplement 06/28/24
apixaban 5 mg tablet (Eliquis) 5 mg PO BID Blood Clot Prevention/Tx #60 tabs 07/06/24
aspirin 81 mg chewable tablet 81 mg PO DAILY blood thinner 08/15/24
ezetimibe 10 mg tablet 10 mg PO HS 01/01/25
sertraline 150 mg capsule 150 mg PO DAILY 01/01/25
Review of Systems
-
History Source: Patient
A 12 point Review of Systems was completed except as noted: Yes
Physical Exam
Vital Signs
Vital Signs
Temp Pulse Resp BP Pulse Ox
98.0 F 63 18 139/55 96
01/09/25 07:10 01/09/25 07:10 01/09/25 07:10 01/09/25 07:10 01/09/25 07:10
Physical Exam
General: Other (.)
Laboratory Results
-
Laboratory Results
01/09/25 06:39
01/09/25 06:39
Impression / Plan
-
Gen: NAD, AAOx3.
Eyes: EOMI, PERRLA, no scleral icterus.
Neck: supple.
CV: RRR, +S1/S2, no m/r/g.
Resp: CTAB, no rales, wheezes, or rhonchi.
Abd: +BS, soft, NT, ND
Skin: No rashes.
Neuro: CN 2-12 intact, non-focal.
Psych: Normal mood and affect.
CXR: No acute disease of the chest
CT brain: No acute intracranial abnormality noted. Mild atrophy. Stable. Mild periventricular small vessel ischemic disease. Stable.
Confusion:
-This is likely a combination of hospital-acquired delirium and acute toxic metabolic encephalopathy from recent anesthesia in the setting of ongoing cognitive decline.
-CT scan of the brain is unremarkable
-Check TSH/B12
Acute hypoxic respiratory insufficiency:
-This is likely due to decreased tidal volumes and inspiratory effort due to recent surgery and relative immobility as well as recent anesthetics in the setting of possible underlying COPD.
-Chest x-ray above, unremarkable
-Incentive spirometer will be ordered
-Encourage ambulation
-as pt has been off of her Eliquis for 5 days, will check CTA chest
Other problems:
Former smoker (possible COPD)
CAD: cont ASA, resume statin
CVA in 2004: cont ASA, resume statin
TIA: cont ASA, resume statin
R THERESE: cont ASA, resume statin
High-grade calcified stenosis involving the proximal left subclavian artery, innominate origin, proximal right subclavian artery s/p intravascular lithotripsy to proximal left subclavian artery (10 mm x 30 mm L6 shockwave), Balloon angioplasty and
stenting of proximal left subclavian artery (9 mm x 39 mm [place] VBX stent), Open exposure of left brachial artery for endovascular intervention with primary repair in August 2024
Essential hypertension: not on any hypertensive medications prior to admission
Paroxysmal atrial fibrillation: Resume Eliquis once okay with primary team
Hypothyroidism: Continue Levoxyl, check TSH
HLD: Resume statin
Stress incontinence
Atrophic vulvovaginitis
Neurovascular disease with recent cognitive decline
--- NOTE | 2025-01-09 10:03 | CM ---
M following re: discharge planning.
Reviewed pt's chart, met with pt.
Pt is an 79 year old female, admitted with SDC status and primary dx of POD 1 s/p uncomplicated colpectomy with colpocleisis, posterior colporrhaphy and midurethral sling for pelvic organ prolapse and urinary incontinence.
Pt reports she lives alone in a [address], no steps, has a daughter and she moved with her family to [place]. Pt reports she does not have any immediate family members locally, has supportive friends and neighbors. Pt reports she uses a cane and a
walker as needed,known to [facility]. Pt reports she has [employer] services 2 days per week. Pt expressed her desire to return back home at discharge and pt stated her friend Susan will transport home.
PCP: Nelson Hilton
Ph[facility]: [facility]
D/C plan: home with resumptions of [employer] services, and family/friends support. Pt stated her friend will transport at discharge.
CM will follow with discharge plan updates as hospitalization progresses
--- NOTE | 2025-01-09 11:29 | PTCARENOTE ---
Pt with PVR of 308, per MD order, russell replaced for acute urinary retention. Education provided, no new orders at this time.
[2025-01-09] MEDS: VITAMIN B-12 1000 MCG PO (12:02)
[2025-01-09] MEDS: ELIQUIS 5 MG PO ×2 (12:02→20:03)
[2025-01-09 12:16] LABS: TSH 0.85 uIU/ml (0.47-4.68)
[2025-01-09 12:34] LABS: Vitamin B12 553 pg/ml (239-931)
[2025-01-09 15:05] VITALS: BP 149/53
[2025-01-09] MEDS: MAGNESIUM OXIDE 500 MG PO (17:37)
[2025-01-09] MEDS: ROCEPHIN 1000 MG IV (18:20)
[2025-01-09] MEDS: STERILE WATER FOR INJECTION 10 ML IV (18:21)
[2025-01-09] MEDS: ZETIA 10 MG PO (20:49)
[2025-01-09] MEDS: CRESTOR 20 MG PO (20:50)
[2025-01-09 23:45] VITALS: BP 164/53
[2025-01-10] MEDS: SYNTHROID 50 MCG PO (05:41)
[2025-01-10] MEDS: ROXICODONE 5 MG PO ×2 (05:43→10:58)
[2025-01-10 06:25] LABS: Hematocrit 31.8 % (37.0-47.0); Hemoglobin 10.4 g/dL (12.0-16.0); Mean Corp Hgb Conc. 32.7 g/dL (33.0-37.0); Mean Corpuscular Hgb 30.5 pg (27.0-31.0); Mean Corpuscular Volume 93.3 fL (81.0-99.0); Mean Platelet Volume 10.1 fL (7.4-10.4); Platelet Count 164 10^3/uL (130-400); Red Blood Cell Count 3.41 10^6/uL (4.20-5.40); Red Cell Dist. Width 13.8 % (11.5-14.5); White Blood Cell Count 7.9 10^3/uL (4.8-10.8)
[2025-01-10 06:36] LABS: Blood Urea Nitrogen 12 mg/dl (7-17); Calcium 8.5 mg/dl (8.4-10.2); Carbon Dioxide 26 mmol/L (22-30); Chloride 109 mmol/L (98-107); Estimated Creatinine Clearance 69 ml/min; Glucose 85 mg/dl (70-99); Potassium 4.3 mmol/L (3.5-5.1); Sodium 139 mmol/L (135-145); eGFR > 60.00
[2025-01-10 07:10] VITALS: BP 146/50
[2025-01-10] MEDS: ZOLOFT 150 MG PO (07:23)
[2025-01-10] MEDS: LOW STRENGTH ASPIRIN 81 MG PO (07:24)
[2025-01-10] MEDS: ELIQUIS 5 MG PO ×2 (07:24→21:35)
[2025-01-10] MEDS: VITAMIN B-12 1000 MCG PO (07:24)
[2025-01-10] MEDS: COLACE 100 MG PO ×2 (07:24→21:35)
--- NOTE | 2025-01-10 07:53 | W.PN.GYN ---
Today's Communication / Plan
-
Stable postoperative management
Continue treatment for UTI
Physician Note
-
Assessment and Plan:
79 yo woman POD 2 s/p colpectomy, colpocleisis, posterior colporrhaphy, perineoplasty, cystoscopy, midurethral sling: uncomplicated procedure and stable postoperatively however with AMS and UTI. Urine culture: +proteus and started on IV Rocephin on
POD1.
1. Postoperative care
-regular diet
-hep lock iv
-cbc and bmp stable
-uop adequate
-Failed voiding trial: catheter to remain in place until 01/11 and repeat voiding trial
-restarted Eliquis POD 1, hemodynamically stable
2. UTI
-Continue IV rocephin
-recommendations per medicine
3. AMS
-negative head CT, CXR, blood work
-+urine culture and recent surgery
-defer to internal medicine for management
4. Atelectasis
-postop changes resulting in O2 requirement
-recommend IS 10x/hour: discussed with nursing
Subjective:
patient denies any significant vaginal bleeding. she does have some burning from her russell catheter. she is alert and oriented today however still has word finding difficulty and general confusion.
Objective:
Intake and Output
01/08/25 01/09/25 01/10/25 01/11/25
06:59 06:59 06:59 06:59
Intake Total 1800 / 1800 1030 / 1030
Output Total 1350 / 1350 1700 / 1700
Balance 450 / 450 -670 / -670
Intake:
Oral fluids 1800 / 1800 1030 / 1030
Output:
Urine, Russell 1350 / 1350 1700 / 1700
Vital Signs
Temp Pulse Resp BP Pulse Ox
99.3 F 67 18 164/53 96
01/09/25 23:45 01/09/25 23:45 01/09/25 23:45 01/09/25 23:45 01/09/25 23:45
Lab Results
01/10/25 05:37
01/10/25 05:37
Exam:
Abdomen: soft, nontender, nondistended
: minimal spotting
Lower extrem: nontender, mild edema, no erythema
--- NOTE | 2025-01-10 08:32 | W.PN.HOSP.TC ---
Today's Communication/Plan
-
see plan
Assessment / Plan
Assessment / Plan
Gen: NAD, awake and alert, NCAT
Eyes: EOMI, PERRLA, no scleral icterus.
Neck: supple.
CV: remains RRR, +S1/S2, no m/r/g.
Resp: remains CTAB, no rales, wheezes, or rhonchi.
Abd: +BS, soft, NT, ND
Skin: No rashes.
Neuro: CN 2-12 intact, non-focal.
Psych: Normal mood and affect.
01/08/25 07:42 Urine Urine Culture - Final
Proteus mirabilis
CXR: No acute disease of the chest
CT brain: No acute intracranial abnormality noted. Mild atrophy. Stable. Mild periventricular small vessel ischemic disease. Stable.
CTA chest: No acute disease of the chest. No evidence of pulmonary embolus. Mild lingular atelectasis versus scarring. New
Acute UTI:
-cont Rocephin
Confusion:
-multifactorial and due to acute metabolic encephalopathy due to acute UTI, hospital-acquired delirium, and acute toxic metabolic encephalopathy from recent anesthesia in the setting of ongoing cognitive decline.
-CT scan of the brain is unremarkable
-TSH/B12 normal
Acute hypoxic respiratory insufficiency:
-This is likely due to decreased tidal volumes and inspiratory effort due to recent surgery and relative immobility as well as recent anesthetics in the setting of possible underlying COPD (former smoker).
-Chest imaging above and unremarkable
-Incentive spirometer ordered
-Encourage ambulation
Other problems:
Former smoker (possible COPD)
CAD: cont ASA/statin
CVA in 2004: cont ASA/statin
TIA: cont ASA/statin
R THERESE: cont ASA/statin
High-grade calcified stenosis involving the proximal left subclavian artery, innominate origin, proximal right subclavian artery s/p intravascular lithotripsy to proximal left subclavian artery (10 mm x 30 mm L6 shockwave), Balloon angioplasty and
stenting of proximal left subclavian artery (9 mm x 39 mm [place] VBX stent), Open exposure of left brachial artery for endovascular intervention with primary repair in August 2024
Essential hypertension: not on any hypertensive medications prior to admission
Paroxysmal atrial fibrillation: cont Eliquis
Hypothyroidism: Continue Levoxyl, TSH normal
HLD: cont statin
Stress incontinence
Atrophic vulvovaginitis
Neurovascular disease with recent cognitive decline
Obesity due to excess calories
FULL/Eliquis
Dispo: PT/OT with goal for d/c tomorrow on PO abx
Total time spent on today's encounter was 50 minutes which included time spent in counseling the patient/family regarding diagnosis and treatment plan as listed above, goals of care, and symptom management. Case was discussed with nursing staff,
specialists, and care coordinators/case management. All labs and imaging personally reviewed by me. Remainder the time spent in detailed review of previous records, lab data, imaging, and other medical provider documentation.
Anticipated Discharge: Within 24 hours
Subjective/Interval History
-
Date of Service: January 10, 2025
Patient offers no acute complaints. Remains confused.
Objective Data
-
Labs:
Laboratory Results
01/10/25
05:37
WBC 7.9
Hgb 10.4 L
Hct 31.8 L
Plt Count 164
Sodium 139
Potassium 4.3
Chloride 109 H
Carbon Dioxide 26
BUN 12
Creatinine 0.7
Glucose 85
Calcium 8.5
Vital Signs:
Vital Signs
Temp Pulse Resp BP Pulse Ox
99.1 F 71 18 146/50 95
01/10/25 07:10 01/10/25 07:10 01/10/25 07:10 01/10/25 07:10 01/10/25 07:10
I&O
01/09/25 01/10/25 01/11/25
06:59 06:59 06:59
Intake Total 1800 / 1800 1030 / 1030
Output Total 1350 / 1350 1700 / 1700
Balance 450 / 450 -670 / -670
[2025-01-10] MEDS: TYLENOL 650 MG PO (09:45)
[2025-01-10 11:15] VITALS: BP 137/53; PULSE 68; O2SAT 97
[2025-01-10 11:22] VITALS: BP 137/53; PULSE 69; O2SAT 96
--- NOTE | 2025-01-10 11:50 | CM ---
Addendum entered by Sang Ramírez 01/10/25 15:18:
CM met with [pt again. Pt's friend Susan at bedside. CM spoke to pt;s daughter Kassy.
Both pt and her family are aware that [facility], [facility], [facility] and [facility] offered a bed and they preferred [facility].
[facility]
Accepting physician: Jose Ham
D/C plan: [facility] when medically stable and an auth available.
Original Note:
CM following re: discharge planning.
Reviewed pt's chart, met with pt.
Pt is POD 2 s/p uncomplicated colpectomy with colpocleisis, posterior colporrhaphy and midurethral sling for pelvic organ prolapse and urinary incontinence.
Pt e lives alone in a [address], no steps, has a daughter and she moved with her family to [place]. Pt reports she does not have any immediate family members locally, has supportive friends and neighbors. Pt reports she uses a cane and a walker as
needed,known to [facility]. Pt reports she has [employer] services 2 days per week.
PT and OT evaluations noted - SNF vs home PT/OT recommended. pt is aware and she stated she lives alone, feels being very weak and pt preferred SNF. A list of SNFs provided. pt preferred following SNFs: [facility], [facility]. [facility] and
[facility]. A referral to above SNFs made.
D/C plan: preferred SNF. Pt will need an auth for skilled level of care at preferred and accepted SNF.
CM will follow to assist pt with discharge to a preferred SNF.
[2025-01-10 15:05] VITALS: BP 147/47
[2025-01-10] MEDS: STERILE WATER FOR INJECTION 10 ML IV (17:18)
[2025-01-10] MEDS: ROCEPHIN 1000 MG IV (17:18)
[2025-01-10] MEDS: MAGNESIUM OXIDE 500 MG PO (17:18)
[2025-01-10] MEDS: CRESTOR 20 MG PO (21:58)
[2025-01-10] MEDS: ZETIA 10 MG PO (21:59)
[2025-01-10 23:14] VITALS: BP 149/45
[2025-01-10] MEDS: DILAUDID 0.25 MG IV (23:29)
[2025-01-11] MEDS: SYNTHROID 50 MCG PO (06:11)
[2025-01-11] MEDS: DILAUDID 0.25 MG IV (06:14)
[2025-01-11] MEDS: ZOLOFT 150 MG PO (07:42)
[2025-01-11] MEDS: COLACE 100 MG PO (07:42)
[2025-01-11] MEDS: ELIQUIS 5 MG PO (07:43)
[2025-01-11] MEDS: VITAMIN B-12 1000 MCG PO (07:43)
[2025-01-11] MEDS: LOW STRENGTH ASPIRIN 81 MG PO (07:43)
[2025-01-11 07:54] VITALS: BP 149/59
--- NOTE | 2025-01-11 08:32 | W.PN.HOSP.TC ---
Addendum entered and electronically signed by Denzel Marie MD 01/11/25 13:27:
Total time spent on d/c = 34 min. This included today's physical exam, progress note, review of laboratory and diagnostic data, preparation of discharge documents and prescriptions, and discussions about the pt's hospital course and discharge plan
with the patient and other pediatrician/medical doctor involved in the patient's care.
Original Note:
Today's Communication/Plan
-
d/c
Assessment / Plan
Assessment / Plan
Gen: NAD, awake and alert, NCAT
Eyes: EOMI, PERRLA, no scleral icterus.
Neck: supple.
CV: remains RRR, +S1/S2, no m/r/g.
Resp: remains CTAB, no rales, wheezes, or rhonchi.
Abd: +BS, soft, NT, ND
Skin: No rashes.
Neuro: CN 2-12 intact, non-focal.
Psych: Normal mood and affect.
01/08/25 07:42 Urine Urine Culture - Final
Proteus mirabilis
CXR: No acute disease of the chest
CT brain: No acute intracranial abnormality noted. Mild atrophy. Stable. Mild periventricular small vessel ischemic disease. Stable.
CTA chest: No acute disease of the chest. No evidence of pulmonary embolus. Mild lingular atelectasis versus scarring. New
Acute UTI:
-cont Rocephin while hospitalized. Switch to PO abx on d/c.
Confusion:
-multifactorial and due to acute metabolic encephalopathy due to acute UTI, hospital-acquired delirium, and acute toxic metabolic encephalopathy from recent anesthesia in the setting of ongoing cognitive decline.
-CT scan of the brain is unremarkable
-TSH/B12 normal
Acute hypoxic respiratory insufficiency:
-This is likely due to decreased tidal volumes and inspiratory effort due to recent surgery and relative immobility as well as recent anesthetics in the setting of possible underlying COPD (former smoker).
-Chest imaging above and unremarkable
-Incentive spirometer ordered
-Encourage ambulation
-resolved, now saturating well on RA
Other problems:
Former smoker (possible COPD)
CAD: cont ASA/statin
CVA in 2004: cont ASA/statin
TIA: cont ASA/statin
R THERESE: cont ASA/statin
High-grade calcified stenosis involving the proximal left subclavian artery, innominate origin, proximal right subclavian artery s/p intravascular lithotripsy to proximal left subclavian artery (10 mm x 30 mm L6 shockwave), Balloon angioplasty and
stenting of proximal left subclavian artery (9 mm x 39 mm [place] VBX stent), Open exposure of left brachial artery for endovascular intervention with primary repair in August 2024
Essential hypertension: not on any hypertensive medications prior to admission
Paroxysmal atrial fibrillation: cont Eliquis
Hypothyroidism: Continue Levoxyl, TSH normal
HLD: cont statin
Stress incontinence
Atrophic vulvovaginitis
Neurovascular disease with recent cognitive decline
Obesity due to excess calories
FULL/Eliquis
Medically cleared for d/c, case management aware.
Anticipated Discharge: Today
Subjective/Interval History
-
Date of Service: January 11, 2025
Denies CP/SOB. c/o back pain.
Objective Data
-
Vital Signs:
Vital Signs
Temp Pulse Resp BP Pulse Ox
98.1 F 62 16 149/59 91
01/11/25 07:54 01/11/25 07:54 01/11/25 07:54 01/11/25 07:54 01/11/25 07:54
I&O
01/10/25 01/11/25 01/12/25
06:59 06:59 06:59
Intake Total 1030 / 1030 1180 / 1180
Output Total 1700 / 1700 1300 / 1300
Balance -670 / -670 -120 / -120
--- NOTE | 2025-01-11 09:08 | W.PN.GYN ---
Today's Communication / Plan
-
Followup voiding trial
Physician Note
-
79yoF POD3 s/p colpectomy, colpocleisis, posterior colporrhaphy, perineoplasty, cystoscopy, midurethral sling on 01/08 admitted for AMS/UTI. Urine culture + proteus sensitive to ceftriaxone.
She was evaluated on AM rounds. Patient's mental status has improved however she reports that overnight she did have delerium and became combative needing temporary restraints. She says that she does not know why she had become combative and is glad
she if feeling better this morning. She is hoping to be discharged today.
Ptient�s pain is controlled on PO analgesics. She is tolerating liquids. She had sat in chair yesterday and ambulated with PT. Patient's russell was removed this morning and she is pending TOV. Reports no BM since day of surgery. Denies SOB, chest
pain, vaginal bleeding.
O :
Vital Signs
Temp Pulse Resp BP Pulse Ox
98.1 F 62 16 149/59 91
01/11/25 07:54 01/11/25 07:54 01/11/25 07:54 01/11/25 07:54 01/11/25 07:54
Intake and Output
01/10/25 01/11/25 01/12/25
06:59 06:59 06:59
Intake Total 1030 / 1030 1180 / 1180
Output Total 1700 / 1700 1300 / 1300
Balance -670 / -670 -120 / -120
Intake:
Oral fluids 1030 / 1030 1180 / 1180
Output:
Urine, Russell 1700 / 1700 1300 / 1300
GA: Well appearing female in NAD, Alert and oriented x 2.
HEENT: Normocephalic, EOMI
Abd: soft, nondistended
: No vaginal bleeding noted
Ext: no lower extremity edema
Plan
- Followup TOV
- Recommend adding senna-s to bowel regimen and to continue on discharge. If no BM by end of today then one capful of milk of magnesia. Warm prune juice also recommended.
- Continue IV antibiotics; transition to PO upon discharge
- Continue to monitor vitals and O2 off oxygen
- Continue home medications
- Monitor vaginal incision bleeding
- Ibuprofen/Tylenol prn and vaginal ice packs for mild/moderate pain and oxycodone prn for severe pain
- Continue SCDs for DVT prophylaxis especially when patient is in bed
- Recommend ambulation with assistance
- Regular diet
- Defer to primary team regarding discharge planning on PO antibiotic course. She may benefit from temporary stay at SNF as her mental status improves. Followup in office in 2 weeks for exam.
[2025-01-11] MEDS: TYLENOL 650 MG PO (09:53)
--- NOTE | 2025-01-11 10:23 | CM ---
Addendum entered by Sang Ramírez 01/11/25 11:15:
Per UR CM pt is upgraded to inpatient. IMM reviewed, placed on chart, pt has a copy.
Original Note:
CM following re: discharge planning.
Reviewed pt's chart, met with pt.
According to MD pt is medically stable to be discharged today. Pt is aware. No IMM required, pt is [facility] status.
CM spoke to [facility] channel sales director and she confirmed they do have a bed available and pt is accepted for admission today.
CM initiated an auth from [employer], spoke to director case management Masood and based on pt's clinical pt is approved for 5 initial days of skilled services at [facility] from today 01/11/25 till 01/15/25 with LCD and NRD 01/15/25. Auth: [id number]. For
additional days and review: [phone].
Auth information forwarded to [facility] channel sales director.
[facility] nursing report: [phone]
Discharge instructions fax: [phone]
D/C plan: [facility]. Friend Susan to transport.
--- NOTE | 2025-01-11 13:27 | W.DCSUMMARY ---
Discharge Summary
Discharge Data
Date of Admission: 01/08/25
Date of Discharge: 01/11/25
-
Pending Results: No
Hospital Course
Primary diagnoses:
Acute metabolic encephalopathy due to acute urinary tract infection, hospital-acquired delirium, and acute toxic metabolic encephalopathy from anesthesia in the setting of ongoing cognitive decline
Secondary diagnoses:
Former smoker (possible COPD)
Coronary artery disease
Cerebrovascular accident in 2004
Transient ischemic attack
R carotid artery stenosis
High-grade calcified stenosis involving the proximal left subclavian artery, innominate origin, proximal right subclavian artery s/p intravascular lithotripsy to proximal left subclavian artery (10 mm x 30 mm L6 shockwave), Balloon angioplasty and
stenting of proximal left subclavian artery (9 mm x 39 mm [place] VBX stent), Open exposure of left brachial artery for endovascular intervention with primary repair in August 2024
Essential hypertension
Paroxysmal atrial fibrillation
Hypothyroidism
Hyperlipidemia
Stress incontinence
Atrophic vulvovaginitis
Neurovascular disease with recent cognitive decline
Obesity due to excess calories
Consultants:
Urogynecology
Imaging:
CXR: No acute disease of the chest
CT brain: No acute intracranial abnormality noted. Mild atrophy. Stable. Mild periventricular small vessel ischemic disease. Stable.
CTA chest: No acute disease of the chest. No evidence of pulmonary embolus. Mild lingular atelectasis versus scarring. New
79-year-old female who was initially admitted after colpectomy with colpocleisis, posterior colporrhaphy with perineoplasty, single incision mid urethral sling, cystoscopy to the urogynecology service. She developed confusion and hypoxemia and was
transferred to the hospitalist service. Imaging above. Her change in mental status was multifactorial and due to acute metabolic encephalopathy due to acute UTI, hospital-acquired delirium, and acute toxic metabolic encephalopathy from recent
anesthesia in the setting of ongoing cognitive decline. Urine culture grew Proteus. The patient was initially on Rocephin and is being transitioned to Augmentin to complete 7 days of antibiotic therapy on discharge. Her acute hypoxemic
respiratory insufficiency resolved and was likely due to decreased tidal volumes and inspiratory effort due to recent surgery and relative immobility as well as recent anesthetics in the setting of possible underlying COPD (former smoker). The
patient was discharged in medically stable condition.
Discharge Plan
-
Patient Disposition: Halfway/SNF
Discharge Diagnosis/Procedures: Acute metabolic encephalopathy due to acute urinary tract infection, hospital-acquired delirium, and acute toxic metabolic encephalopathy from anesthesia in the setting of ongoing cognitive decline
Condition: Good
Diet: Other diet
Additional Diets: Heart healthy
Activity: With assistance and As tolerated
Driving Restrictions: Not until seen by your Dr
Referrals:
Nelson Hilton MD [Family Provider, [facility]] - in less than 1 week
Prescriptions:
New
amoxicillin-pot clavulanate 875-125 mg tablet
1 tab PO BID Qty: 8 0RF
Rx Instructions:
last day 01/15/26
sennosides-docusate sodium [Stimulant Laxative Plus] 8.6-50 mg tablet
1 tab-cap PO HS Qty: 30 0RF
Continued
cyanocobalamin (vitamin B-12) 1,000 MCG tablet
1,000 mcg PO DAILY
cholecalciferol (vitamin D3) 2,000 UNITS tablet
2,000 unit PO DAILY
rosuvastatin 20 MG tablet
20 mg PO HS
levothyroxine 50 mcg Tablet
50 mcg PO DAILY
acetaminophen 500 mg Capsule
1,000 mg PO Q6HPRN PRN (Reason: mild pain)
magnesium oxide 500 mg magnesium Tablet
500 mg PO QPM
Eliquis 5 mg Tablet
5 mg PO BID Qty: 60 0RF
aspirin 81 mg tablet,chewable
81 mg PO DAILY
ezetimibe 10 mg Tablet
10 mg PO HS
sertraline 150 mg Capsule
150 mg PO DAILY
Discharge Orders:
Discharge Patient (As Directed); Ordered 01/11/25
Ordered By: Denzel Marie
Discharge Date and Time
Print Language: TAMAZIGHT
[2025-01-11] MEDS: ROCEPHIN 1000 MG IV (13:53)
[2025-01-11 14:42] VITALS: BP 160/57
== END 2025-01-11 16:05 | DRG 748 ==
LOC: 2 NORTH 10:05
PROVIDERS: Obstetrics & Gynecology; ADMITTING PHYSICIAN Internal Medicine; FAMILY PHYSICIAN Family Medicine
PROC: 0ULG7ZZ Occlusion of Vagina, Via Natural or Artificial Opening (ICD-10-PCS; 2025-01-08)
PROC: 0UTG7ZZ Resection of Vagina, Via Natural or Artificial Opening (ICD-10-PCS; 2025-01-08)
PROC: 0TSD0ZZ Reposition Urethra, Open Approach (ICD-10-PCS; 2025-01-08)
PROC: 0JQC0ZZ Repair Pelvic Region Subcutaneous Tissue and Fascia, Open Approach (ICD-10-PCS; 2025-01-08)
PROC: 0TUD0JZ Supplement Urethra with Synthetic Substitute, Open Approach (ICD-10-PCS; 2025-01-08)
PROC: 0KS Muscles, Reposition (ICD-10-PCS; 2025-01-08)
PROC: 0TJB8ZZ Inspection of Bladder, Via Natural or Artificial Opening Endoscopic (ICD-10-PCS; 2025-01-08)
DX: N99.3 Prolapse of vaginal vault after hysterectomy (principal); G92.8 Other toxic encephalopathy; F05 Delirium due to known physiological condition; J98.11 Atelectasis; N39.0 Urinary tract infection, site not specified; N39.3 Stress incontinence (female) (male); N95.2 Postmenopausal atrophic vaginitis; I10 Essential (primary) hypertension; E78.00 Pure hypercholesterolemia, unspecified; M19.90 Unspecified osteoarthritis, unspecified site; R09.02 Hypoxemia; I25.10 Atherosclerotic heart disease of native coronary artery without angina pectoris; R06.89 Other abnormalities of breathing; I48.0 Paroxysmal atrial fibrillation; E03.9 Hypothyroidism, unspecified; N36.41 Hypermobility of urethra; E78.5 Hyperlipidemia, unspecified; E66.09 Other obesity due to excess calories; Z60.2 Problems related to living alone; Z96.651 Presence of right artificial knee joint; Z79.01 Long term (current) use of anticoagulants; Z79.82 Long term (current) use of aspirin; Z79.1 Long term (current) use of non-steroidal anti-inflammatories (NSAID); Z79.890 Hormone replacement therapy; Z86.73 Personal history of transient ischemic attack (TIA), and cerebral infarction without residual deficits; Z86.0100 Personal history of colon polyps, unspecified; Z87.891 Personal history of nicotine dependence; Z68.33 Body mass index [BMI] 33.0-33.9, adult
CPT/HCPCS: 36415; 70450; 71046; 71275; 80048; 80051; 81003; 81015; 82565; 82607; 84443; 84520; 85027; 86850; 86900; 86901; 87077; 87086; 87186; 97163; 97167; 97530; C1713; C1771; Q9967

== ENCOUNTER 2025-02-26 10:40 | Outpatient (RCR) | payer OTHER, SELFPAY | END 2025-02-26 23:59 | disposition home or self-care (01) | LOC: RST 10:40 | PROVIDERS: ATTENDING PHYSICIAN Nurse Practitioner; FAMILY PHYSICIAN Family Medicine | DX: R41.3 Other amnesia (principal); R47.01 Aphasia; I63.9 Cerebral infarction, unspecified | CPT/HCPCS: 92507; 92523 ==

== ENCOUNTER 2025-03-26 10:00 | Outpatient (RCR) | payer OTHER, SELFPAY | END 2025-03-26 23:59 | disposition home or self-care (01) | LOC: RPT 10:00 | PROVIDERS: ATTENDING PHYSICIAN Nurse Practitioner; FAMILY PHYSICIAN Family Medicine | DX: R41.3 Other amnesia (principal); I63.50 Cerebral infarction due to unspecified occlusion or stenosis of unspecified cerebral artery (principal); R47.01 Aphasia; I69.320 Aphasia following cerebral infarction; I63.9 Cerebral infarction, unspecified; I69.311 Memory deficit following cerebral infarction; I69.318 Other symptoms and signs involving cognitive functions following cerebral infarction; I69.328 Other speech and language deficits following cerebral infarction; Z73.6 Limitation of activities due to disability | CPT/HCPCS: 92507; 97162; 97167; 97530; 97535 ==

== ENCOUNTER 2025-03-29 08:18 | Inpatient (IN) | payer OTHER, SELFPAY ==
[2025-03-26 14:02] VITALS: BP 153/60
[2025-03-26 14:23] LABS: Hematocrit 37.8 % (37.0-47.0); Hemoglobin 12.6 g/dL (12.0-16.0); Mean Corp Hgb Conc. 33.3 g/dL (33.0-37.0); Mean Corpuscular Volume 89.4 fL (81.0-99.0); Nucleated Red Blood Cells % 0 %; Platelet Count 234 10^3/uL (130-400); Red Cell Dist. Width 14.9 % (11.5-14.5)
[2025-03-26 14:43] LABS: ALT (SGPT) 19 U/L (0-35); AST (SGOT) 22 U/L (14-36); Albumin 4.6 g/dl (3.5-5.0); Alkaline Phosphatase 55 U/L (38-126); Blood Urea Nitrogen 15 mg/dl (7-17); Calcium 9.2 mg/dl (8.4-10.2); Carbon Dioxide 24 mmol/L (22-30); Chloride 106 mmol/L (98-107); Glucose 136 mg/dl (70-99); Potassium 4.1 mmol/L (3.5-5.1); Sodium 138 mmol/L (135-145); Total Protein 7.4 g/dl (6.3-8.2); eGFR > 60.00
--- NOTE | 2025-03-26 18:53 | ED.GENMED ---
Addendum entered and electronically signed by Loyd Mcclain DO 03/26/25 21:13:
Discussed with daughter Kassy, updated
Original Note:
History of Present Illness
General
Chief Complaint: Abdominal Symptoms
Source: patient, records, family and previous radiology exam
Exam Limitations: none
Time Seen by Provider: 03/26/25 17:55
Nursing documentation reviewed up to this point in time: agreed with
History of Present Illness
History of Present Illness:
79-year-old female companied by family member she had prior stroke, recovered well 2 months ago underwent gynecologic surgery by Dr. Peralta, no longer needs a pessary, she has had acute on chronic lower abdominal pain starts in her back sharp
stabbing no history of kidney stones no fever urinating okay family has noticed that she has had some speech abnormalities a past day or so like she gets when she gets a UTI
Past History
Past History
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
ED Past Surgical History: Gynecological (Robotic assisted hysterectomy left salpingo oophorectomy, lysis of adhesions 2022), Orthopedic (Right knee replacement), Urological (Bladder surgery 2023) and Other (thyroid surgery 2014, implantable cardiac
monitor 2014 removed 2017)
Social History
Tobacco: Former smoker (Quit 2015)
Alcohol: None
Living: with family
Employment: Employed
Family History
Family History: CAD and Other (Breast cancer)
Phy Exam
Physical Exam
Physical Exam:
Physical Exam
General: 79-year-old female looks uncomfortable not
Neck: No tongue bite
Heart: Bradycardia
Lungs: no acute respiratory distress. clear bilaterally
Abdomen: Tender in the right flank and right lower
Neuro: Moves all extremities speech is clear
Skin: no rash
Psychiatric: cooperative
Extremities: no edema.
Course
Orders/Labs/Results
Orders:
Orders
03/26/25 14:08
Electrocardiogram (*1) Urgent
Reason for Study: Abdominal Pain
03/26/25 14:09
EKG- Treatment ONCE
03/26/25 14:12
CMP [Comprehensive Metabolic Panel] Urgent
Complete Blood Count/With Diff Urgent
Lipase Urgent
Comment: ADD ON
03/26/25 18:05
CT Abd/pelvis W Iv Cont Urgent
Comment:
Reason For Exam: righst sided pain
Bladder Scan- Treatment ONCE
03/26/25 18:06
Urinalysis Reflex To Culture Urgent
0.9% Sodium Chloride 1000 ml [Nss] 1,000 ml IV BOLUS
HYDROmorphone [Dilaudid] 1 mg IV NOW STA
Ondansetron Injectable [Zofran] 4 mg IV NOW STA
03/26/25 18:53
CT Head W/o Iv Contrast Urgent
Comment:
Reason For Exam: Speech abnormality weakness prior stroke
03/26/25 21:05
Case Management Consult ONCE
Case Management Consult: Discharge Planning
Acetaminophen [Tylenol] 1,000 mg PO NOW STA
diazePAM [Valium Injection] 5 mg IV NOW STA
03/26/25 21:06
Add On- LAB Urgent
Tests Added?: lipase
03/27/25 06:00
Physical Therapy Consult [Pt Eval And Treat] IN AM
Activity Level: Ambulate
Abnormal Lab Results
03/26/25
14:12
RDW 14.9 H %
(11.5-14.5)
Neutrophils % 75.3 H %
(42.2-75.2)
Lymphocytes % 16.2 L %
(20.5-51.1)
Glucose 136 H mg/dl
(70-99)
03/26/25 14:12
03/26/25 14:12
Vital Signs
Initial and Last Documented VS:
Initial Vital Signs
Temp Pulse Resp BP Pulse Ox
97.8 F 70 18 153/60 96
03/26/25 14:02 03/26/25 14:02 03/26/25 14:02 03/26/25 14:02 03/26/25 14:02
Last Documented Vital Signs
Temp Pulse Resp BP Pulse Ox
97.9 F 63 14 153/55 95
03/26/25 19:39 03/26/25 19:45 03/26/25 19:45 03/26/25 19:38 03/26/25 19:45
*Pulse Oximetry
SaO2: 96
Oxygen Mode of Delivery: Room air
Patient hypoxic: no
*Critical Care Note
Total Time (30-74mins, 75-104mins- exclusive of procedures): Not Applicable
Update Note
Update Note:
8:[address] noted reviewed with radiology NAD labs noted
On exam patient is still complaining of pain in her right mid back, feels too uncomfortable to go home will try dose of Valium,
Nonurgent case management PT consult,
ED Attending Note
-
Portions of this chart may have been created with voice recognition software.� Occasional wrong word or��sound alike� substitutions may have occurred due to the inherent limitations of voice recognition software.
Discharge Plan
Departure
Patient Disposition: Admit
Date of Disposition: 03/26/25
Time of Disposition: 21:09
Admit to: Telemetry
Presentation/result/management discussed w/ accepting MD/DO: Hospitalist
Patient with high blood pressure during this ER visit?: No
Condition: Fair
Discharge Problem:
Intractable back pain, Speech abnormality
Prescriptions:
No Action
cyanocobalamin (vitamin B-12) 1,000 MCG tablet
1,000 mcg PO DAILY
cholecalciferol (vitamin D3) 2,000 UNITS tablet
2,000 unit PO DAILY
rosuvastatin 20 MG tablet
20 mg PO HS
levothyroxine 50 mcg Tablet
50 mcg PO DAILY
acetaminophen 500 mg Capsule
1,000 mg PO Q6HPRN PRN (Reason: mild pain)
magnesium oxide 500 mg magnesium Tablet
500 mg PO QPM
Eliquis 5 mg Tablet
5 mg PO BID Qty: 60 0RF
aspirin 81 mg tablet,chewable
81 mg PO DAILY
ezetimibe 10 mg Tablet
10 mg PO HS
sertraline 150 mg Capsule
150 mg PO DAILY
amoxicillin-pot clavulanate 875-125 mg tablet
1 tab PO BID Qty: 8 0RF
Rx Instructions:
last day 01/15/26
sennosides-docusate sodium [Stimulant Laxative Plus] 8.6-50 mg tablet
1 tab-cap PO HS Qty: 30 0RF
Referrals:
Nelson Hilton MD [Family Provider, Family Practice]
Interventions
Interventions:
*Risk Screen - Suicide Last Done: 03/26/25 14:02
*General Assessment Last Done: 03/26/25 19:40
*Neglect/Abuse Screening Last Done: 03/26/25 14:02
*ED- Fall Risk Assessment Last Done: 03/26/25 19:40
*ED COVID-19 Vaccine History Last Done: 03/26/25 19:40
IU-Wktlfw-Dydgrmbyko Assessment Last Done: 03/26/25 19:40
Discharge Date and Time
Print Language: SAMI
[2025-03-26] MEDS: DILAUDID 1 MG IV (19:32)
[2025-03-26] MEDS: ZOFRAN 4 MG IV (19:33)
[2025-03-26] MEDS: NSS 1000 IV (19:34)
[2025-03-26 19:35] VITALS: BMI 38.7
[2025-03-26 19:38] VITALS: BP 153/55
[2025-03-26 21:00] VITALS: BP 155/59
[2025-03-26] MEDS: VALIUM INJECTION 5 MG IV (21:21)
[2025-03-26] MEDS: TYLENOL 1000 MG PO (21:21)
--- NOTE | 2025-03-26 21:23 | HPS.HSE ---
Addendum entered and electronically signed by Rere Lawson MD 03/26/25 22:38:
This is an addendum to H&P written by Jemma Adame on 03/26/2025. �Patient seen and examined independently with [facility] [employer] [facility].
79-year-old female past medical history of chronic back pain, CAD, CVA, right carotid artery stenosis, hypertension, paroxysmal atrial fibrillation on Eliquis, hypothyroidism, hyperlipidemia, stress incontinence, atrophic vulvovaginitis, cognitive
decline, obesity, former smoker, presenting with right flank pain unknown duration. �Patient is complaining of pain across her lower back rating to her butt. �No radiation to the legs. �Also with difficulty with vision in left eye unknown duration
although patient denies any difficulty with vision right now. �Poor historian right now to receiving Valium and Dilaudid.
Patient also with speech abnormalities for the past day as per family, although history source unclear.
2 months ago she underwent gynecologic surgery for pelvic prolapse by Dr. Peralta.
Patient lives at home alone.
Vital signs unremarkable.
Labs unremarkable.
CT head shows no acute abnormality. �CT abdomen pelvis shows no acute pathology.
Patient with likely worsening of chronic lower back pain. �Urinalysis pending. �Tylenol, oxycodone for pain. �PT/OT and case management.
Unclear if patient is having legitimate speech difficulties, as currently she seems lethargic secondary to Valium/Dilaudid given.
Original Note:
Family Physician
-
Family Physician: Nelson Hilton
Chief Complaint
-
right flank pain
History of Present Illness
Patient is a 79-year-old female with past medical history significant for paroxysmal atrial fibrillation, hypertension, hypothyroidism and COPD who presented to [facility] ED for evaluation of right flank pain. HPI obtained from daughter via phone as
patient somnolent post pain medications administered in ED. She stated that patient notified her neighbor of right flank pain and trouble with vision in left eye. Nursing in ED reported patient initially complained of abdomal pain that radiated to
back. No known recent infection, fever, chills, dizziness, cough, shortness of breath, chest pain, nausea, vomiting, constipation or diarrhea.
Medical History
Past Medical History
Past Medical History: Reports Other
Additional Past Medical History:
paroxysmal atrial fibrillation
hypertension
hypothyroidism
COPD
depression
Hx CVA
Past Surgical History: Reports Urological
Additional Past Surgical History:
thyroid lobectomy 03/12/2015
[employer] Implant 01/16/2015
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 came out 07/19
Right knee replacement 2022
Robotic assisted total laproscopic supracervical hysterectomy, left salpingo oophorectomy with excision of pelvic mass, lysis of adhesions. Dr. Peralta 06/01/2023
Balloon angioplasty and stenting of proximal left subclavian artery (Dr. Parra) 08/15/2024
Colpectomy, Cystoscopy colpocleisis and vaginal enterocele repair, Posterior colporrhaphy with perineoplasty, Single incision mid urethral sling, 01/08/25
Social History
Tobacco: Former Smoker
Alcohol: None
Drug: None
Personal: Single
Living: Alone
Employment: Retired
Family History
Family History: Not pertinent
Allergies / Home Medications
Allergies reflects when Allergies were last updated in [employer].
Home Medications with original date entered in [employer]
Allergy/Medication List:
Allergies
Allergy/AdvReac Type Severity Reaction Status Date / Time
No Known Allergies Allergy Verified 01/08/25 06:22
Home Medications
cholecalciferol (vitamin D3) 50 mcg (2,000 unit) tablet 2,000 unit PO DAILY Supplement 10/24/14
cyanocobalamin (vitamin B-12) 1,000 mcg tablet 1,000 mcg PO DAILY Supplement 10/24/14
rosuvastatin 20 mg tablet 20 mg PO HS High Cholesterol 09/08/16
levothyroxine 50 mcg tablet 50 mcg PO SUMOTUWETHFRSA Thyroid 05/27/23
magnesium oxide 500 mg PO QPM Supplement 06/28/24
apixaban 5 mg tablet (Eliquis) 5 mg PO BID Blood Clot Prevention/Tx #60 tabs 07/06/24
aspirin 81 mg chewable tablet 81 mg PO DAILY blood thinner 08/15/24
ezetimibe 10 mg tablet 10 mg PO HS 01/01/25
sertraline 150 mg capsule 150 mg PO DAILY 01/01/25
Review of Systems
-
Unable to obtain full review of systems at this time due to: Other (lethargic post pain medication )
History Source: Family
Constitutional: Reports No Symptoms
EENT: Reports No Symptoms
Respiratory: Reports No Symptoms
Cardiac: Reports No Symptoms
Abdomen/GI: Reports No Symptoms
: Reports Flank Pain (right flank )
Musculoskeletal: Reports No Symptoms and Other (back pain )
Skin: Reports No Symptoms
Neurological: Reports No Symptoms
Endocrine: Reports No Symptoms
Hematologic/Lymphatic: Reports No Symptoms
Psych: Reports No Symptoms
Physical Exam
Vital Signs
Vital Signs
Temp Pulse Resp BP Pulse Ox
97.9 F 63 14 153/55 95
03/26/25 19:39 03/26/25 19:45 03/26/25 19:45 03/26/25 19:38 03/26/25 19:45
Physical Exam
General: Well Developed, Well Nourished, No Apparent Distress and Obese
HEENT: NormoCephalic, Moist mucous membranes and Atraumatic
Respiratory: Clear and Non Labored Respirations
Cardiac: S1/S2 and Regular Rhythm; No Murmur, Rub or Gallop
Breast: Deferred by me
GI: Soft, Non Tender, Non Distended and Normal Bowel Sounds; No Organomegaly
Rectal: Deferred by Provider
Genito-urinary: Deferred by me
Musculoskeletal: No Clubbing, No Cyanosis and No Edema
Skin: Warm and IV/Catheter Site
Neuro: Nonfocal/grossly intact and Sedated
Hematologic/Lymphatic: No Lymphadenopathy
Psych: Calm
Laboratory Results
-
03/26/25 14:12
03/26/25 14:12
Laboratory Results
Total Bilirubin 0.9 mg/dl (0.2-1.3) 03/26/25 14:12
AST 22 U/L (14-36) 03/26/25 14:12
ALT 19 U/L (0-35) 03/26/25 14:12
Alkaline Phosphatase 55 U/L (38-126) 03/26/25 14:12
Data Reviewed
-
CT Scan: Report Reviewed by me (Abd/Pel: he appendix is well-visualized and appears normal. No evidence for bowel obstruction or free intraperitoneal air. Colonic diverticula with no CT evidence for diverticulitis. Large calcified fibroid,
stable. Coronary artery calcifications are present. Please correlate with symptoms of an)
Medical Tests (Nuc Med, Echo, EKG etc): Report Reviewed by me (EKG: SINUS RHYTHM WITH PREMATURE ATRIAL COMPLEXES WITH 1ST DEGREE A-V BLOCK LEFT BUNDLE BRANCH BLOCK)
Lab Data: Labs Reviewed by me
Impression/Plan
-
IMPRESSION/PLAN:
#right flank pain 2/2 UTI vs. musculoskeletal injury
UA: pending
EKG: SINUS RHYTHM WITH PREMATURE ATRIAL COMPLEXES WITH 1ST DEGREE A-V BLOCK
LEFT BUNDLE BRANCH BLOCK
Head CT: No evidence of acute intracranial abnormality.
Abd/Pel CT: the appendix is well-visualized and appears normal.
No evidence for bowel obstruction or free intraperitoneal air.
Colonic diverticula with no CT evidence for diverticulitis.
Large calcified fibroid, stable.
Coronary artery calcifications are present. Please correlate with symptoms of and risk factors for coronary artery disease, with further workup as clinically appropriate.
Single [address] findings to suggest acute cholecystitis. No evidence of biliary ductal dilation.
Moderate to severe vascular calcification with no abdominal aortic aneurysm.
Bony degenerative changes as described.
- Admit to med/surg
- Consult case management
- Consult PT
#paroxysmal atrial fibrillation
- continue Eliquis
#hyperlipemia
- continue rosuvastatin and ezetimibe
#hypothyroidism
- continue levothyroxine
#depression
- continue sertraline
#COPD
#hypertension
#Hx CVA
Code status: full code
DVT prophylaxis: Eliquis
[2025-03-26 21:37] LABS: Lipase 69 U/L (23-300)
[2025-03-26 22:00] VITALS: BP 161/50
[2025-03-26 22:06] LABS: Urine Character Cloudy (Clear)
[2025-03-26 22:26] LABS: Urine Urothelial Cell 0-2 /LPF (FEW)
[2025-03-26 22:27] LABS: Urine Red Blood Cell 40-50 /HPF (0-2); Urine White Cell 30-40 /HPF (0-5)
[2025-03-26 23:00] VITALS: BP 135/54
[2025-03-27] VITALS (12 sets, daily range): BP systolic 133–165; BP diastolic 47–79; PULSE 69–70; O2SAT 96; BMI 36.7
[2025-03-27] MEDS: ROCEPHIN 1000 MG IV (04:11)
[2025-03-27] MEDS: STERILE WATER FOR INJECTION 10 ML IV (04:12)
[2025-03-27] MEDS: ROXICODONE 5 MG PO (04:18)
[2025-03-27] MEDS: SYNTHROID 50 MCG PO (05:19)
--- NOTE | 2025-03-27 09:10 | W.PN.HOSP.TC ---
Today's Communication/Plan
-
see outlined plan below
Assessment / Plan
Assessment / Plan
Assessment:
R flank/back pain, musculoskeletal likely vs UTI related (hx of recurrent UTIs, requires bladder prolapse surgery 12/2024)
- CT: Mild levoconvex scoliosis centered in the upper lumbar spine. Changes of degenerative disc disease, greatest at L4-5 with a vacuum disc phenomenon. Grade 1 degenerative spondylolisthesis at L4-5. Moderate degenerative change of both hip
joints. Mild degenerative changes symphysis pubis. Minimal degenerative changes of the sacroiliac joints.
- PT/OT
- pain control (Tylenol, prn Oxy for severe pain)
- treat UTI with Rocephin pending culture
chest wall/rib discomfort on palpation
- check Rib Xrays
- pain control (Tylenol, prn Oxy for severe pain)
Parox A. Fib
- continue Eliquis
- rate is controlled
Essential HTN
- not on meds, monitor. May need to start an agent.
HLD - continue statin/zetia
Hypothyroidism on replacement
Depression on Zoloft
hx of TIA 2014
Reported hx of chronic CVA on neuroimaging
- on Aspirin
- follows with OP Neurology
DVT ppx: Eliquis
Code: Full
Anticipated Discharge: > 48 hours
Subjective/Interval History
-
Date of Service: March 27, 2025
resting comfortably,
reports improving back pain, 10 - manageable with Tylenol
denies alarm symptoms but does report pain with urination
Objective Data
-
Vital Signs:
Vital Signs
Temp Pulse Resp BP Pulse Ox
98 F 69 16 165/60 92
03/27/25 09:06 03/27/25 09:06 03/27/25 09:06 03/27/25 09:06 03/27/25 09:06
I&O
03/26/25 03/27/25 03/28/25
06:59 06:59 06:59
Output Total 450 / 450
Balance -450 / -450
Physical Exam
-
General: No Apparent Distress and Obese
HEENT: Normocephalic and Atraumatic
Respiratory: Clear to Auscultation; Negative Wheezes
Cardiac: Regular Rhythm, S1/S2 and Other (bilateral chest tenderness to palpation)
GI: Soft
Neuro: AO x 3
Psych: Calm
Data Reviewed
-
Total Time Spent with Patient (in minutes): 41
Labs: Labs Reviewed by me
[2025-03-27] MEDS: ELIQUIS 5 MG PO ×2 (09:52→20:20)
[2025-03-27] MEDS: LOW STRENGTH ASPIRIN 81 MG PO (09:52)
[2025-03-27] MEDS: TYLENOL 650 MG PO ×2 (09:56→20:33)
--- NOTE | 2025-03-27 09:58 | PTCARENOTE ---
Patient states she is in 10/10 right middle back pain but did NOT want oxycodone. She wanted Tylenol for this pain. See MAR
[2025-03-27] MEDS: ZOLOFT 150 MG PO (10:02)
--- NOTE | 2025-03-27 12:18 | CM ---
CM received consult, reviewed chart and met with pt bedside in ED. Lives alone in first floor condo, no ELENITA.
Independent in ADLs, personal care and ambulation. Uses cane or RW, still drives. 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
Was driving herself to OP therapy at [place].
Confirms prescription coverage.
[facility] with OP PT, OT, [facility] and [facility].
Seen by PT who recommend continuing OP therapy but strongly suggest she have someone drive her. Does appear to have some cognitive difficulty, pt states 'trouble finding words'.
CRANE reviewed and signed.
PCP: Nelson Hilton
Pharmacy: [facility]
CM will continue to follow for any discharge planning needs.
--- NOTE | 2025-03-27 14:17 | PTCARENOTE ---
Called receiving floor, [address] east, Told BARD Ziegler I was tubing up ED no nurse delay report for this pt
--- NOTE | 2025-03-27 15:26 | PTCARENOTE ---
Received pt fro ER via stretcher, accompanied by ER staff. Pt AAO x3, MCBRIDE well, able to transfer to bed with minimal assistance, denies weakness/dizziness. VSS. On room air- pulse ox 93%, no c/o SOB. Pt c/o mid-back discomfort with deep breaths.
Abd obese, soft, to start 2 Gm Na/chol lowering diet. Pt DTV; states she will void in BR; refuses offer of BSC. Afebrile; skin W/D/I. Pt oriented to [address], currently resting quietly. Will continue to monitor.
[2025-03-27] MEDS: SENOKOT 8.6 MG PO ×2 (15:52→20:21)
[2025-03-27] MEDS: MAGNESIUM OXIDE 400 MG PO (17:58)
[2025-03-27] MEDS: CRESTOR 20 MG PO (20:32)
[2025-03-27] MEDS: ZETIA 10 MG PO (20:33)
[2025-03-28] MEDS: ROCEPHIN 1000 MG IV (04:18)
[2025-03-28] MEDS: STERILE WATER FOR INJECTION 10 ML IV (04:19)
[2025-03-28] MEDS: SYNTHROID 50 MCG PO (04:19)
[2025-03-28] MEDS: ROXICODONE 5 MG PO (04:32)
[2025-03-28 05:11] VITALS: BMI 36.7
[2025-03-28 07:00] VITALS: BP 156/59
[2025-03-28 07:40] LABS: Hematocrit 38.7 % (37.0-47.0); Hemoglobin 12.2 g/dL (12.0-16.0); Mean Corp Hgb Conc. 31.5 g/dL (33.0-37.0); Mean Corpuscular Volume 92.8 fL (81.0-99.0); Platelet Count 236 10^3/uL (130-400); Red Cell Dist. Width 15.1 % (11.5-14.5)
[2025-03-28] MEDS: ELIQUIS 5 MG PO ×2 (07:51→20:07)
[2025-03-28] MEDS: SENOKOT 8.6 MG PO ×2 (07:51→20:07)
[2025-03-28] MEDS: ZOLOFT 150 MG PO (07:51)
[2025-03-28] MEDS: LOW STRENGTH ASPIRIN 81 MG PO (07:51)
[2025-03-28 08:33] LABS: Blood Urea Nitrogen 12 mg/dl (7-17); Calcium 9.2 mg/dl (8.4-10.2); Carbon Dioxide 30 mmol/L (22-30); Chloride 105 mmol/L (98-107); Estimated Creatinine Clearance 65 ml/min; Glucose 100 mg/dl (70-99); Potassium 4.6 mmol/L (3.5-5.1); Sodium 139 mmol/L (135-145); eGFR > 60.00
[2025-03-28] MEDS: TYLENOL 650 MG PO ×2 (10:00→21:17)
--- NOTE | 2025-03-28 13:30 | W.PN.HOSP.TC ---
Today's Communication/Plan
-
start Vanco for Enterococcus - pending final culture
back/hip xrays
pain control
PT/OT
Assessment / Plan
Assessment / Plan
Assessment:
R flank/back pain, musculoskeletal likely vs UTI related (hx of recurrent UTIs, requires bladder prolapse surgery 12/2024)
- CT: Mild levoconvex scoliosis centered in the upper lumbar spine. Changes of degenerative disc disease, greatest at L4-5 with a vacuum disc phenomenon. Grade 1 degenerative spondylolisthesis at L4-5. Moderate degenerative change of both hip
joints. Mild degenerative changes symphysis pubis. Minimal degenerative changes of the sacroiliac joints.
- check Lumbar/sacral xrays
- PT/OT - outpatient therapy recommended
- pain control (Tylenol, prn Oxy for severe pain)
- treat Enterococcus UTI with IV Vancomycin (stop IV Rocephin)
Bilateral hip pain
- concerning for OA
- Hip X-rays
chest wall/rib discomfort on palpation
- Rib X-rays negative
- pain control (Tylenol, prn Oxy for severe pain)
Parox A. Fib
- continue Eliquis
- rate is controlled
Essential HTN
- not on meds, monitor. May need to start an agent.
HLD - continue statin/zetia
Hypothyroidism on replacement
Depression on Zoloft
hx of TIA 2014
Reported hx of chronic CVA on neuroimaging
- on Aspirin
- follows with OP Neurology
DVT ppx: Eliquis
Code: Full
Anticipated Discharge: 24 - 48 hours
Subjective/Interval History
-
Date of Service: March 28, 2025
resting comfortably, reports back/hip pain
Objective Data
-
Labs:
Laboratory Results
03/28/25
07:26
WBC 6.8
Hgb 12.2
Hct 38.7
Plt Count 236
Sodium 139
Potassium 4.6
Chloride 105
Carbon Dioxide 30
BUN 12
Creatinine 0.7
Glucose 100 H
Calcium 9.2
Vital Signs:
Vital Signs
Temp Pulse Resp BP Pulse Ox
98.5 F 66 16 156/59 91
03/28/25 07:00 03/28/25 07:00 03/28/25 07:00 03/28/25 07:00 03/28/25 09:29
I&O
03/27/25 03/28/25 03/29/25
06:59 06:59 06:59
Intake Total 360 / 360
Output Total 450 / 450
Balance -450 / -450 360 / 360
Physical Exam
-
General: No Apparent Distress
HEENT: Normocephalic
Respiratory: Negative Wheezes
Cardiac: Regular Rhythm and S1/S2
GI: Soft and Nontender
Neuro: AO x 3
Psych: Calm
Data Reviewed
-
Total Time Spent with Patient (in minutes): 45
Labs: Labs Reviewed by me
[2025-03-28] MEDS: AUGMENTIN 875 MG/125 MG 1 TABLET PO ×2 (14:29→20:07)
--- NOTE | 2025-03-28 14:53 | CM ---
CM reviewed chart, patient asleep bedside. PT recommending outpatient therapy. Plan for back/hip xrays. CM will continue to follow for all discharge planning needs.
Plan; return home when stable, continue outpatient therapy
[2025-03-28 15:00] VITALS: BP 156/48
[2025-03-28] MEDS: MAGNESIUM OXIDE 400 MG PO (17:15)
[2025-03-28] MEDS: CRESTOR 20 MG PO (20:07)
[2025-03-28] MEDS: ZETIA 10 MG PO (20:08)
[2025-03-28 23:27] VITALS: BP 167/62
[2025-03-29] MEDS: TYLENOL 650 MG PO ×2 (01:47→12:37)
[2025-03-29 01:54] VITALS: BP 160/59
[2025-03-29] MEDS: SYNTHROID 50 MCG PO (06:00)
[2025-03-29 07:22] VITALS: BP 172/64
[2025-03-29] MEDS: ZOLOFT 150 MG PO (08:46)
[2025-03-29] MEDS: AUGMENTIN 875 MG/125 MG 1 TABLET PO (08:46)
[2025-03-29] MEDS: LOW STRENGTH ASPIRIN 81 MG PO (08:46)
[2025-03-29] MEDS: SENOKOT 8.6 MG PO (08:46)
[2025-03-29] MEDS: ELIQUIS 5 MG PO (08:46)
[2025-03-29 09:07] LABS: Blood Urea Nitrogen 11 mg/dl (7-17); Calcium 9.0 mg/dl (8.4-10.2); Carbon Dioxide 29 mmol/L (22-30); Chloride 107 mmol/L (98-107); Estimated Creatinine Clearance 75 ml/min; Glucose 93 mg/dl (70-99); Potassium 4.4 mmol/L (3.5-5.1); Sodium 139 mmol/L (135-145); eGFR > 60.00
[2025-03-29 09:32] LABS: Hematocrit 34.9 % (37.0-47.0); Hemoglobin 11.2 g/dL (12.0-16.0); Mean Corp Hgb Conc. 32.1 g/dL (33.0-37.0); Mean Corpuscular Volume 92.3 fL (81.0-99.0); Platelet Count 182 10^3/uL (130-400); Red Cell Dist. Width 15.1 % (11.5-14.5)
--- NOTE | 2025-03-29 10:22 | W.PN.HOSP.TC ---
Today's Communication/Plan
-
dc later afternoon pending final urine sensitivities
Assessment / Plan
Assessment / Plan
Assessment:
R flank/back pain, musculoskeletal likely vs UTI related (hx of recurrent UTIs, requires bladder prolapse surgery 12/2024)
- CT: Mild levoconvex scoliosis centered in the upper lumbar spine. Changes of degenerative disc disease, greatest at L4-5 with a vacuum disc phenomenon. Grade 1 degenerative spondylolisthesis at L4-5. Moderate degenerative change of both hip
joints. Mild degenerative changes symphysis pubis. Minimal degenerative changes of the sacroiliac joints.
- Lumbar Xray: Mild to moderate multilevel disc disease throughout the lumbar spine. Grade 1 degenerative anterolisthesis at L4-5.
- PT/OT - outpatient therapy recommended - script written
- pain control (Tylenol)
- treat Enterococcus UTI with oral Augmentin x 7 days. Final sensitives pending
Bilateral hip pain
- concerning for OA
- Hip Xray: Mild bilateral hip osteoarthritis.
chest wall/rib discomfort on palpation
- Rib X-rays negative
- pain control (Tylenol)
Parox A. Fib
- continue Eliquis
- rate is controlled
Essential HTN
- start Nifedipine 30mg - OP PCP f/u
HLD - continue statin/zetia
Hypothyroidism on replacement
Depression on Zoloft
hx of TIA 2014
Reported hx of chronic CVA on neuroimaging
- on Aspirin
- follows with OP Neurology
DVT ppx: Eliquis
Code: Full
More than 30 minutes spent in discharge including
Final examination of the patient
Summarizing hospital stay
Instructions for continuing care to all relevant caregivers
Preparation of discharge records, prescriptions, and referral forms
Total time spent (in minutes): 41
Anticipated Discharge: Today
Subjective/Interval History
-
Date of Service: March 29, 2025
resting comfortably, no complaints
Objective Data
-
Labs:
Laboratory Results
03/29/25
08:03
WBC 6.0
Hgb 11.2 L
Hct 34.9 L
Plt Count 182 D
Sodium 139
Potassium 4.4
Chloride 107
Carbon Dioxide 29
BUN 11
Creatinine 0.6
Glucose 93
Calcium 9.0
Vital Signs:
Vital Signs
Temp Pulse Resp BP Pulse Ox
97.5 F 50 18 172/64 98
03/29/25 07:22 03/29/25 07:22 03/29/25 07:22 03/29/25 07:22 03/29/25 07:22
I&O
03/28/25 03/29/25 03/30/25
06:59 06:59 06:59
Intake Total 360 / 360 240 / 240
Balance 360 / 360 240 / 240
Physical Exam
-
General: No Apparent Distress
HEENT: Normocephalic and Atraumatic
Respiratory: Negative Wheezes
Cardiac: Regular Rhythm and S1/S2
GI: Soft
Genito-urinary: No Costovertebral Tender
Neuro: AO x 3
Psych: Calm
Data Reviewed
-
Total Time Spent with Patient (in minutes): 42
Labs: Labs Reviewed by me
[2025-03-29] MEDS: PROCARDIA XL (EXTENDED RELEASE) 30 MG PO (10:46)
[2025-03-29 11:55] VITALS: BP 143/59; PULSE 71; O2SAT 96
--- NOTE | 2025-03-29 11:55 | CM ---
Addendum entered by Jamey Hartman 03/29/25 12:13:
LOC changed to IP today
IMM verbally reviewed w/ patient, copy provided, copy on chart
Friend will transport home
Original Note:
Patient will d/c home today
Therapy rec OP PT, patient current w/ services
No CM needs at this time
Plan: Home, resume w/ OP therapy
--- NOTE | 2025-03-29 12:59 | W.DS.TRANS ---
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
-
Discharge Instructions:
Sleep Apnea Risk Intermediate
Discharge Diagnosis/Procedures UTI, arthritis pains
Diet 2 Gram Sodium,Low Cholesterol
Activity As tolerated
Other Services PT,OT,ST
Instructions:
Stand-Alone Forms:
Changes to Home Medications: No
Discharge Medications:
DC Medications w/original date entered in [facility]
cholecalciferol (vitamin D3) 50 mcg (2,000 unit) tablet 2,000 unit PO DAILY Supplement 10/24/14
cyanocobalamin (vitamin B-12) 1,000 mcg tablet 1,000 mcg PO DAILY Supplement 10/24/14
rosuvastatin 20 mg tablet 20 mg PO HS High Cholesterol 09/08/16
levothyroxine 50 mcg tablet 50 mcg PO SUMOTUWETHFRSA Thyroid 05/27/23
magnesium oxide 500 mg PO QPM Supplement 06/28/24
apixaban 5 mg tablet (Eliquis) 5 mg PO BID Blood Clot Prevention/Tx #60 tabs 07/06/24
aspirin 81 mg chewable tablet 81 mg PO DAILY blood thinner 08/15/24
ezetimibe 10 mg tablet 10 mg PO HS High Cholesterol 01/01/25
sertraline 150 mg capsule 150 mg PO DAILY Mental Health 01/01/25
acetaminophen 325 mg tablet 650 mg (2 x 325 mg) PO Q4HPRN PRN mild pain/GILLETTE/temp> 100.4F #100 tabs 03/29/25
amoxicillin 875 mg-potassium clavulanate 125 mg tablet 1 tab PO BID #11 tabs 03/29/25
nifedipine 30 mg tablet,extended release 30 mg PO DAILY #30 tabs 03/29/25
Home Medication Changes
Pending Results: No
Total time spent discharging patient (in min): 41
[2025-03-29 15:13] VITALS: BP 140/59
[2025-03-29] MEDS: MAGNESIUM OXIDE 400 MG PO (17:11)
== END 2025-03-29 17:49 | disposition home or self-care (01) | DRG 690 ==
LOC: 4 EAST ACU 08:18
PROVIDERS: Physician Assistant; ADMITTING PHYSICIAN Hospitalist; ATTENDING PHYSICIAN Internal Medicine; EMERGENCY PHYSICIAN Emergency Medicine; FAMILY PHYSICIAN Family Medicine
DX: N39.0 Urinary tract infection, site not specified (principal); R47.01 Aphasia; E03.9 Hypothyroidism, unspecified; E66.01 Morbid (severe) obesity due to excess calories; E78.00 Pure hypercholesterolemia, unspecified; I10 Essential (primary) hypertension; J44.9 Chronic obstructive pulmonary disease, unspecified; I48.0 Paroxysmal atrial fibrillation; F32.9 Major depressive disorder, single episode, unspecified; G89.29 Other chronic pain; M54.50 Low back pain, unspecified; N39.3 Stress incontinence (female) (male); N95.2 Postmenopausal atrophic vaginitis; M41.86 Other forms of scoliosis, lumbar region; I25.10 Atherosclerotic heart disease of native coronary artery without angina pectoris; M43.16 Spondylolisthesis, lumbar region; M16.0 Bilateral primary osteoarthritis of hip; B95.2 Enterococcus as the cause of diseases classified elsewhere; M51.369 Other intervertebral disc degeneration, lumbar region without mention of lumbar back pain or lower extremity pain; Z96.651 Presence of right artificial knee joint; Z60.2 Problems related to living alone; Z68.36 Body mass index [BMI] 36.0-36.9, adult; Z87.891 Personal history of nicotine dependence; Z85.3 Personal history of malignant neoplasm of breast; Z90.711 Acquired absence of uterus with remaining cervical stump; Z79.890 Hormone replacement therapy; Z79.01 Long term (current) use of anticoagulants; Z79.82 Long term (current) use of aspirin; Z87.440 Personal history of urinary (tract) infections; Z86.73 Personal history of transient ischemic attack (TIA), and cerebral infarction without residual deficits
CPT/HCPCS: 70450; 71111; 72110; 72220; 73523; 74177; 80048; 80053; 81003; 81015; 83690; 85025; 85027; 87077; 87086; 87186; 93005; 97116; Q9967

== ENCOUNTER 2025-04-30 06:42 | Outpatient (RCR) | payer OTHER, SELFPAY | END 2025-04-30 23:59 | disposition home or self-care (01) | LOC: ROT 06:42 | PROVIDERS: ATTENDING PHYSICIAN Psychiatry & Neurology Neurology; FAMILY PHYSICIAN Family Medicine; REFERRING PHYSICIAN Nurse Practitioner | DX: I63.50 Cerebral infarction due to unspecified occlusion or stenosis of unspecified cerebral artery (principal); R41.3 Other amnesia; I69.320 Aphasia following cerebral infarction; I69.328 Other speech and language deficits following cerebral infarction; I69.311 Memory deficit following cerebral infarction; I69.318 Other symptoms and signs involving cognitive functions following cerebral infarction; R47.01 Aphasia; Z87.440 Personal history of urinary (tract) infections; Z73.6 Limitation of activities due to disability; I63.9 Cerebral infarction, unspecified | CPT/HCPCS: 92507; 97110; 97112; 97116; 97164; 97168; 97530; 97535; 97537 ==

== ENCOUNTER 2025-05-30 12:35 | Outpatient (RCR) | payer OTHER, SELFPAY | END 2025-05-30 23:59 | disposition home or self-care (01) | LOC: ROT 12:35 | PROVIDERS: ATTENDING PHYSICIAN Psychiatry & Neurology Neurology; FAMILY PHYSICIAN Family Medicine; REFERRING PHYSICIAN Nurse Practitioner | DX: I69.320 Aphasia following cerebral infarction (principal); I69.311 Memory deficit following cerebral infarction; I69.318 Other symptoms and signs involving cognitive functions following cerebral infarction; I69.328 Other speech and language deficits following cerebral infarction; R41.3 Other amnesia; Z73.6 Limitation of activities due to disability; Z87.440 Personal history of urinary (tract) infections | CPT/HCPCS: 92507; 97110; 97112; 97116; 97530; 97535; 97537 ==

== ENCOUNTER → 2025-06-11 14:51 | Outpatient (REF) | payer OTHER, SELFPAY | LOC: HWRCS 14:51 | PROVIDERS: ATTENDING PHYSICIAN Internal Medicine Cardiovascular Disease; FAMILY PHYSICIAN Family Medicine | DX: I48.0 Paroxysmal atrial fibrillation (principal); I34.0 Nonrheumatic mitral (valve) insufficiency | CPT/HCPCS: 93306 ==

== ENCOUNTER 2025-06-18 07:05 | Outpatient (RCR) | payer OTHER, SELFPAY | END 2025-06-27 23:59 | disposition home or self-care (01) | LOC: ROT 07:05 | PROVIDERS: ATTENDING PHYSICIAN Psychiatry & Neurology Neurology; FAMILY PHYSICIAN Family Medicine; REFERRING PHYSICIAN Nurse Practitioner | DX: I69.320 Aphasia following cerebral infarction (principal); I69.311 Memory deficit following cerebral infarction; I69.318 Other symptoms and signs involving cognitive functions following cerebral infarction; I69.328 Other speech and language deficits following cerebral infarction; R41.3 Other amnesia; Z73.6 Limitation of activities due to disability; Z87.440 Personal history of urinary (tract) infections | CPT/HCPCS: 92507; 97110; 97112; 97116; 97530; 97535; 97537 ==

== ENCOUNTER → 2025-06-20 09:59 | Outpatient (REF) | payer OTHER, SELFPAY | LOC: RAD 09:59 | PROVIDERS: ATTENDING PHYSICIAN Surgery Vascular Surgery; FAMILY PHYSICIAN Family Medicine | DX: I65.29 Occlusion and stenosis of unspecified carotid artery (principal); I77.1 Stricture of artery | CPT/HCPCS: 93880; 93931 ==

== ENCOUNTER 2025-07-09 07:04 | Outpatient (RCR) | payer OTHER, SELFPAY | END 2025-07-23 11:10 | disposition home or self-care (01) | LOC: ROT 07:04 | PROVIDERS: ATTENDING PHYSICIAN Psychiatry & Neurology Neurology; FAMILY PHYSICIAN Family Medicine; REFERRING PHYSICIAN Nurse Practitioner | DX: I69.320 Aphasia following cerebral infarction (principal); I69.311 Memory deficit following cerebral infarction; I69.318 Other symptoms and signs involving cognitive functions following cerebral infarction; I69.328 Other speech and language deficits following cerebral infarction; R41.3 Other amnesia; Z73.6 Limitation of activities due to disability; Z87.440 Personal history of urinary (tract) infections | CPT/HCPCS: 92507; 97110; 97112; 97116; 97535 ==

== ENCOUNTER 2025-07-21 19:49 | Observation (INO) | payer OTHER, SELFPAY ==
[2025-07-21 08:26] VITALS: BP 187/83
--- NOTE | 2025-07-21 10:32 | ED.GENMED ---
History of Present Illness
<Janette Barrow PA-C - Last Filed: 07/21/25 17:35>
General
Chief Complaint: Musculo-Skeletal Complaint
Time Seen by Provider: 07/21/25 09:35
History of Present Illness
History of Present Illness:
see MDM
Past History
<Janette Barrow PA-C - Last Filed: 07/21/25 17:35>
Past History
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
ED Past Surgical History: Gynecological (Robotic assisted hysterectomy left salpingo oophorectomy, lysis of adhesions 2022), Orthopedic (Right knee replacement), Urological (Bladder surgery 2023) and Other (thyroid surgery 2014, implantable cardiac
monitor 2014 removed 2017)
Social History
Tobacco: Former smoker (Quit 2015)
Alcohol: None
Living: with family
Employment: Employed
Family History
Family History: CAD and Other (Breast cancer)
Phy Exam
<DAMARIS Tillman Last Filed: 07/21/25 17:35>
Physical Exam
Physical Exam:
se MDM
Course
<Janette Barrow PA-C - Last Filed: 07/21/25 17:35>
Orders/Labs/Results
Orders:
Orders
07/21/25 08:31
Shoulder, Left, Trauma CR [CR Shoulder, Trauma - Left] Urgent
Comment:
Reason For Exam: pain
07/21/25 09:59
Electrocardiogram (*1) Urgent
Reason for Study: Fatigue / Weakness
EKG- Treatment ONCE
Hydrocodone 5/APAP 325 [[place] 5/325] 1 tablet PO NOW STA
Ketorolac [Toradol] 15 mg IV NOW STA
07/21/25 10:32
CPK [Creatine Phosphokinase] Urgent
Complete Blood Count/With Diff Urgent
Comprehensive Metabolic Panel Urgent
07/21/25 16:34
CT Head W/o Iv Contrast Urgent
Comment:
Reason For Exam: dementia, fall, eliquis
Urinalysis Reflex To Culture Urgent
07/21/25 17:16
Acetaminophen [Tylenol] 650 mg PO NOW STA
Abnormal Lab Results
07/21/25
10:32
MCHC 31.8 L g/dL
(33.0-37.0)
RDW 14.6 H %
(11.5-14.5)
Absolute Neuts (auto) 7.2 H 10^3/uL
(1.4-6.5)
Absolute Lymphs (auto) 0.9 L 10^3/uL
(1.2-3.4)
Neutrophils % 81.8 H %
(42.2-75.2)
Lymphocytes % 10.5 L %
(20.5-51.1)
Glucose 101 H mg/dl
(70-99)
07/21/25 10:32
07/21/25 10:32
Vital Signs
Initial and Last Documented VS:
Initial Vital Signs
Temp Pulse BP Pulse Ox
97.5 F 71 187/83 97
07/21/25 08:26 07/21/25 08:26 07/21/25 08:26 07/21/25 08:26
Last Documented Vital Signs
Temp Pulse Resp BP Pulse Ox
98.2 F 70 17 151/131 98
07/21/25 16:14 07/21/25 16:14 07/21/25 16:14 07/21/25 16:14 07/21/25 16:14
<Princess Mccormack, - Last Filed: 07/21/25 17:46>
Orders/Labs/Results
Orders:
Orders
07/21/25 08:31
Shoulder, Left, Trauma CR [CR Shoulder, Trauma - Left] Urgent
Comment:
Reason For Exam: pain
07/21/25 09:59
Electrocardiogram (*1) Urgent
Reason for Study: Fatigue / Weakness
EKG- Treatment ONCE
Hydrocodone 5/APAP 325 [[place] 5/325] 1 tablet PO NOW STA
Ketorolac [Toradol] 15 mg IV NOW STA
07/21/25 10:32
CPK [Creatine Phosphokinase] Urgent
Complete Blood Count/With Diff Urgent
Comprehensive Metabolic Panel Urgent
07/21/25 16:34
CT Head W/o Iv Contrast Urgent
Comment:
Reason For Exam: dementia, fall, eliquis
Urinalysis Reflex To Culture Urgent
07/21/25 17:16
Acetaminophen [Tylenol] 650 mg PO NOW STA
Abnormal Lab Results
07/21/25
10:32
MCHC 31.8 L g/dL
(33.0-37.0)
RDW 14.6 H %
(11.5-14.5)
Absolute Neuts (auto) 7.2 H 10^3/uL
(1.4-6.5)
Absolute Lymphs (auto) 0.9 L 10^3/uL
(1.2-3.4)
Neutrophils % 81.8 H %
(42.2-75.2)
Lymphocytes % 10.5 L %
(20.5-51.1)
Glucose 101 H mg/dl
(70-99)
07/21/25 10:32
07/21/25 10:32
Vital Signs
Initial and Last Documented VS:
Initial Vital Signs
Temp Pulse BP Pulse Ox
97.5 F 71 187/83 97
07/21/25 08:26 07/21/25 08:26 07/21/25 08:26 07/21/25 08:26
Last Documented Vital Signs
Temp Pulse Resp BP Pulse Ox
98.2 F 70 17 151/131 98
07/21/25 16:14 07/21/25 16:14 07/21/25 16:14 07/21/25 16:14 07/21/25 16:14
<Janette Barrow PA-C - Last Filed: 07/21/25 17:35>
MDM/Problems Addressed
Differential Diagnosis Includes:
ee MDM
MDM/Problems Addressed:
Note:
CHIEF COMPLAINT(S)
Pain in the left shoulder.
HISTORY OF PRESENT ILLNESS
The patient is an 80-year-old female who presents with left shoulder pain. The patient reports that the pain began a couple of weeks ago and has been worsening. this morning She described a recent incident where she rolled off her sofa while
attempting to stand and landed on her buttocks without striking her head. She noted, 'I couldnt do anything. I was stuck,' and remained on the floor for two hours before contacting her daughter via phone for assistance. The pain was significant
enough to impede her movement, stating 'I couldnt move it,' and has not been relieved by any self-administered treatments.
The patient has not taken any pain medication yet and mentioned she generally uses acetaminophen but has experienced stronger pain relief with opioids such as hydrocodone and Vicodin in the past. She recalls being advised to consider an orthopedic
consultation for ongoing issues. She confirms usage of acetaminophen typically, opting not to use nonsteroidal anti-inflammatory drugs like ibuprofen often.
pt saw her PCP last night actually for this shoulder pain and was referred to ortho
she has never seen them for this before
ADDITIONAL HISTORY OBTAINED FROM SOURCES OTHER THAN THE PATIENT
The patient mentioned her daughter was contacted after the fall incident and indicated her neighbor holds a spare ely but was unavailable due to a personal event.
PHYSICAL EXAM
GENERAL: Alert , in no apparent distress
HEAD: NCAT
NECK: no midline tenderness, active ROM intact, no paraspinal muscle tenderness;
EYE: pupils equal and reactive, EOMs intact.
ENT: o/p clr, mmm. no hemotympanum
CARDIAC: Regular rate and rhythm, no edema
LUNGS: Clear breath sounds bilaterally, no acute respiratory distress, no wheezes/rales/rhonchi
ABDOMEN: Soft, without focal tenderness, no r/g, no cvat
NEUROLOGICAL: Alert and oriented x 3, no focal neuro deficits, CN intact, 5/5 strength, sensation intact
SKIN: Warm and dry,
MUSCULOSKELETAL: Painful limited range of motion of the left shoulder, no specific tenderness, normal neurovascular exam distally
PSYCH: Does have some poor memory, some behavioral changes, some dementia
- Vital Signs and Nursing Notes: Reviewed and within normal limits.
PROBLEM LIST
Acute:
- Left shoulder pain post fall
- Difficulty ambulating due to shoulder pain
Chronic:
- Possible history of arthritis affecting the shoulder
PLAN
1. Administer Vicodin for pain relief considering the patients significant pain and previous tolerance.
2. Suggest an orthopedic consultation to evaluate chronic and acute shoulder issues.
3. Arrange for follow-up transportation with a neighbor after the hospital visit due to potential limitations in mobility and care assistance.
DIFFERENTIAL DIAGNOSIS
The differential diagnosis includes, in no particular order, and is not limited to:
1. Shoulder strain or sprain
2. Rotator cuff injury
3. Osteoarthritis exacerbation
4. Shoulder fracture
5. Shoulder dislocation
6. Bursitis
7. Tendinitis
8. Adhesive capsulitis
9. Impingement syndrome
10. Neuropathic pain due to cervical radiculopathy or brachial plexus injury
80 y/o F
on elqiuis AF
says she slid off the couch for some reason today onto buttocks
has been having ongoin gL shoulder pain x 2 weeks
may have contributed but details were actually a ltitle fuzzy
no head strik
very limited painful ROM of the Lshoulder
seems oriented initally
maybe some minimal memory problems
w/u here shows OA on L shoulder xry indep reviewed, no fx
? calficif tendniniits or bursitis given severe limited ROM
givne vicodin
CARE-UPDATE
07/21/25 - 12:54
The patient appears slightly sedated and tired, likely due to the medication administered. They report persistent pain and limited mobility in the affected area, particularly pointing to the shoulder. Theres no significant change in elbow
functionality noted. Recent blood work shows no electrolyte abnormalities to explain the patients fall. Concerns were raised about a possible rotator cuff injury, necessitating an MRI, which requires outpatient evaluation by an orthopedist. The
patient is now being prepared for discharge, focusing on pain management and discussing dietary needs.
i spoke with pt's alexx sara
she is from out of town
there is no one local to help pt
pt is mobile and got herself up and walked around but i'm more concernedabout her dementia, nwe diagnosis acccording to daughter
daughter thinks she sounds at her baseline but pt is now more confused, forgot i saw her, thought she fell yesterday, is showing me veins in her arm and sayin 'look'
she just seems to be showing more signs of dementia and with her living alone i was ocncerned about safety
[place] called neighbor to pick her up and he said that they are not available to visit pt and chekc on her like alexx would like and that pt is really needing more asisstance than she has in the past
daughter agrees, thinks she needs assisted living
but at this point, unsafe to go home
will ct head
<Janette Barrow PA-C - Last Filed: 07/21/25 17:35>
*Pulse Oximetry
SaO2: 97
Patient hypoxic: no (98)
*Critical Care Note
Total Time (30-74mins, 75-104mins- exclusive of procedures): Not Applicable
ED Attending Note
<Janette Barrow PA-C - Last Filed: 07/21/25 17:35>
-
Portions of this chart may have been created with voice recognition software.� Occasional wrong word or��sound alike� substitutions may have occurred due to the inherent limitations of voice recognition software.
<Princess Mccormack DO - Last Filed: 07/21/25 17:46>
ED Attending Note
Patient seen and examined by attending physician: Yes
I performed the substantive portion of visit, reviewed & personally made and approve the management plan that is documented in note by myself or SURI.: Yes
I performed a history and physical exam of patient and discussed management with resident, I reviewed resident's note and agree with documented findings and plan of care.: Yes
ED Attending Note:
80-year-old female with history of left shoulder issues presenting to the emergency department for left shoulder pain. Patient reports that she rolled off of the couch, injuring her left shoulder. She had difficulty getting up. Denied head
injury. Notes difficulty with any type of range of motion to the shoulder. Denied any chest pain or difficulty breathing or additional acute medical complaints. Vital signs on initial arrival stable.
Patient initially seen and evaluated by physician fleet administrative assistant with appropriate workup initiated regarding patient's left shoulder pain. No neurovascular compromise on exam, no obvious deformity or signs of trauma. X-ray without evidence of
dislocation or fracture, does show degenerative disease. Suspecting arthritic component to patient's pain. Patient initially was unclear on how she had fallen, so labs obtained, unremarkable, as well as EKG. Patient lives at home by herself.
Initial plan was for patient to go home with sling and outpatient follow-up, however patient seemed slightly confused. Patient's clinical course was discussed with her daughter, suspicion for underlying dementia. Unsafe disposition home, with
patient at this time unable to care for self. Daughter lives in [place], is unable to attend her at this time. A neighbor was called to assist her home, however can also not stay with her overnight. For this reason, ultimate plan for
admission for PT and case management consultation. On my assessment, patient remains hemodynamically stable, no additional concerning findings on my exam. Patient agreeable to admission.
Discharge Plan
Departure
Patient Disposition: Admit
Date of Disposition: 07/21/25
Time of Disposition: 16:18
Admit to: Med/Surg
Presentation/result/management discussed w/ accepting MD/DO: Hospitalist
Patient with high blood pressure during this ER visit?: Yes
Condition: Fair
Covid-19: Not Applicable
Discharge Problem:
Arthritis of shoulder, Dementia
Instructions: Osteoarthritis, Overuse Injuries (DC)
Prescriptions:
New
tramadol 25 mg tablet
25 mg PO Q8H PRN (Reason: Pain) Qty: 9 0RF
No Action
cyanocobalamin (vitamin B-12) 1,000 MCG tablet
1,000 mcg PO DAILY
cholecalciferol (vitamin D3) 2,000 UNITS tablet
2,000 unit PO DAILY
rosuvastatin 20 MG tablet
20 mg PO HS
levothyroxine 50 mcg Tablet
50 mcg PO SUMOTUWETHFRSA
magnesium oxide 500 mg magnesium Tablet
500 mg PO QPM
Eliquis 5 mg Tablet
5 mg PO BID Qty: 60 0RF
aspirin 81 mg tablet,chewable
81 mg PO DAILY
ezetimibe 10 mg Tablet
10 mg PO HS
sertraline 150 mg Capsule
150 mg PO DAILY
acetaminophen 325 mg Tablet
650 mg PO Q4HPRN PRN (Reason: mild pain/GILLETTE/temp> 100.4F) Qty: 100 0RF
nifedipine 30 mg Tablet Extended Release
30 mg PO DAILY Qty: 30 0RF
amoxicillin-pot clavulanate 875-125 mg Tablet
1 tab PO BID Qty: 11 0RF
Referrals:
Treiman,Nelson, MD [Family Provider, Family Practice] - Follow up in 5-7 days
Chito Turner MD [Active, Orthopedics] - Follow up in 1 week
Activity Restrictions/Additional Instructions:
YOUR XRAY SHOWED NO BREAK OR DISLOCATION IN YOUR SHOULDER
REST, ICE OFF AND ON
TAKE TYLENOL EVERY 6 HOUR FOR PAIN
IF PAIN IS SEVERE YOU CAN TRY A DOSE OF TRAMADOL 25 MG EVERY 8 HOURS NEEDED OR JUST USE BEFORE BEDTIME
FOLLOW UP WITH ORTHOPEDICS
YOU COULD NEED MORE IMAGING LIKE AN MRI
RETURN FOR ANY CONCERNS.
Interventions
Interventions:
*General Assessment Last Done: 07/21/25 11:00
*Neglect/Abuse Screening Last Done: 07/21/25 11:00
[facility] Risk Assessment Tool Last Done: 07/21/25 10:26
*Risk Screen - Suicide (C-SSRS) Last Done: 07/21/25 11:00
ED-Musculoskeletal Assessment Last Done: 07/21/25 11:00
Discharge Date and Time
Print Language: GREENLAND[place]
[2025-07-21] MEDS: NORCO 5/325 1 TABLET PO (10:37)
[2025-07-21] MEDS: TORADOL 15 MG IV (10:37)
[2025-07-21 10:51] LABS: Hematocrit 38.7 % (37.0-47.0); Hemoglobin 12.3 g/dL (12.0-16.0); Mean Corp Hgb Conc. 31.8 g/dL (33.0-37.0); Mean Corpuscular Volume 91.5 fL (81.0-99.0); Nucleated Red Blood Cells % 0 %; Platelet Count 223 10^3/uL (130-400); Red Cell Dist. Width 14.6 % (11.5-14.5)
[2025-07-21 11:07] LABS: ALT (SGPT) 14 U/L (0-35); AST (SGOT) 20 U/L (14-36); Albumin 4.0 g/dl (3.5-5.0); Alkaline Phosphatase 70 U/L (38-126); Blood Urea Nitrogen 11 mg/dl (7-17); Calcium 9.4 mg/dl (8.4-10.2); Carbon Dioxide 27 mmol/L (22-30); Chloride 103 mmol/L (98-107); Glucose 101 mg/dl (70-99); Potassium 4.4 mmol/L (3.5-5.1); Sodium 138 mmol/L (135-145); Total Protein 7.2 g/dl (6.3-8.2); eGFR > 60.00
[2025-07-21 14:29] VITALS: BP 142/50
[2025-07-21 15:57] VITALS: BP 152/121
[2025-07-21 16:14] VITALS: BP 151/131
[2025-07-21] MEDS: TYLENOL 650 MG PO (17:25)
[2025-07-21 17:39] VITALS: BP 93/58
--- NOTE | 2025-07-21 18:40 | HPS.HSE ---
Family Physician
-
Family Physician: Nelson Hilton
Chief Complaint
-
Left shoulder pain
History of Present Illness
The patient is an 80-year-old female who presents to the ED due to left shoulder pain that started approximately 2 weeks earlier, and has been worsening, reducing her ROM and movement. This morning, she rolled off her sofa while attempting to stand,
landed on her buttocks without striking her head. She was unable to get up off the floor for 2 hours, before contacting her daughter via phone for assistance. The pain was significant enough to impede her movement, stating 'I couldn't move it,' and
has not been relieved by any self-administered treatments. The patient is not taking pain medication, but typically uses acetaminophen. She was advised to consider an orthopedic consultation for ongoing issues in the past. She saw her PCP last night
who recommended [facility]. The patient's daughter discussed with ED provider that patient has a new diagnosis of dementia. She lives alone, and daughter is not living nearby, and is concerned pt is unsafe to be home, and may require assisted living.
Of note, she had a urinalysis performed this past week by pt's PCP, and culture is pending at this time. Daughter discussed that PCP did not want to start oral abx yet, given prior hx of multiple positive UA and no growth. Pt denies active urinary
symptoms currently.
Medical History
Past Medical History
Past Medical History: Reports Other
Additional Past Medical History:
paroxysmal atrial fibrillation
hypertension
hypothyroidism
COPD
depression
Hx CVA
Past Surgical History: Reports Urological
Additional Past Surgical History:
thyroid lobectomy 03/12/2015
[employer] Implant 01/16/2015
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 came out 07/19 dh
Right knee replacement 2022
Robotic assisted total laproscopic supracervical hysterectomy, left salpingo oophorectomy with excision of pelvic mass, lysis of adhesions. Dr. Peralta 06/01/2023
Balloon angioplasty and stenting of proximal left subclavian artery (Dr. Parra) 08/15/2024
Colpectomy, Cystoscopy colpocleisis and vaginal enterocele repair, Posterior colporrhaphy with perineoplasty, Single incision mid urethral sling, 01/08/25
Social History
Tobacco: Former Smoker
Alcohol: None
Drug: None
Personal: Single
Living: Alone
Employment: Retired
Family History
Family History: Not pertinent
Allergies / Home Medications
Allergies reflects when Allergies were last updated in [employer].
Home Medications with original date entered in [employer]
Allergy/Medication List:
Allergies
Allergy/AdvReac Type Severity Reaction Status Date / Time
No Known Allergies Allergy Verified 07/21/25 08:28
Home Medications
cholecalciferol (vitamin D3) 50 mcg (2,000 unit) tablet 2,000 unit PO DAILY Supplement 10/24/14
cyanocobalamin (vitamin B-12) 1,000 mcg tablet 1,000 mcg PO DAILY Supplement 10/24/14
rosuvastatin 20 mg tablet 20 mg PO HS High Cholesterol 09/08/16
levothyroxine 50 mcg tablet 50 mcg PO SUMOTUWETHFRSA Thyroid 05/27/23
magnesium oxide 500 mg PO QPM Supplement 06/28/24
apixaban 5 mg tablet (Eliquis) 5 mg PO BID Blood Clot Prevention/Tx #60 tabs 07/06/24
aspirin 81 mg chewable tablet 81 mg PO DAILY blood thinner 08/15/24
ezetimibe 10 mg tablet 10 mg PO HS High Cholesterol 01/01/25
sertraline 150 mg capsule 150 mg PO DAILY Mental Health 01/01/25
acetaminophen 325 mg tablet 650 mg (2 x 325 mg) PO Q4HPRN PRN mild pain/GILLETTE/temp> 100.4F #100 tabs 03/29/25
amoxicillin 875 mg-potassium clavulanate 125 mg tablet 1 tab PO BID #11 tabs 03/29/25
nifedipine 30 mg tablet,extended release 30 mg PO DAILY #30 tabs 03/29/25
tramadol 25 mg tablet 25 mg PO Q8H PRN Pain #9 tabs 07/21/25
Review of Systems
-
A 12 point ROS was completed and negative except as noted: Yes
Physical Exam
Vital Signs
Vital Signs
Temp Pulse Resp BP Pulse Ox
98.2 F 72 17 93/58 98
07/21/25 16:14 07/21/25 18:01 07/21/25 16:14 07/21/25 17:39 07/21/25 16:14
Physical Exam
General: Well Developed, Well Nourished, No Apparent Distress, Comfortable and Conversant
HEENT: NormoCephalic and Anicteric
Respiratory: Clear
Cardiac: S1/S2 and Regular Rhythm
GI: Soft, Non Tender and Non Distended
Musculoskeletal: No Clubbing, No Cyanosis and No Edema
Skin: Warm and Dry
Psych: Calm
Laboratory Results
-
07/21/25 10:32
07/21/25 10:32
Laboratory Results
Total Bilirubin 0.7 mg/dl (0.2-1.3) 07/21/25 10:32
AST 20 U/L (14-36) 07/21/25 10:32
ALT 14 U/L (0-35) 07/21/25 10:32
Alkaline Phosphatase 70 U/L (38-126) 07/21/25 10:32
Data Reviewed
-
CT Scan: Report Reviewed by me (CTH changes of chronic small vessel ischemic disease. The imaged paranasal sinuses and mastoid air cells are clear.)
Medical Tests (Nuc Med, Echo, EKG etc): Image Personally Visualized and interpreted and Report Reviewed by me (sinus w 1st degree AV block, LBBB (old))
Impression/Plan
-
IMPRESSION:The patient is an 80-year-old female who presents to the ED due to left shoulder pain that started approximately 2 weeks earlier, and has been worsening, reducing her ROM and movement. This morning, she rolled off her sofa while
attempting to stand, landed on her buttocks without striking her head. She was unable to get up off the floor for 2 hours, before contacting her daughter via phone for assistance. The pain was significant enough to impede her movement, stating 'I
couldn't move it,' and has not been relieved by any self-administered treatments. She had a urinalysis performed this past week by pt's PCP, and culture is pending at this time. Daughter discussed that PCP did not want to start oral abx yet, given
prior hx of multiple positive UA and no growth. Pt denies active urinary symptoms currently.
#Left shoulder pain for 2 weeks, concern for rotator cuff injury
-X-ray w/o acute findings - Moderate degenerative changes of the acromioclavicular and glenohumeral joints.
-Tylenol, Lido patch, prn tramadol
-PT eval
-cont w OP eval with Ortho (will require OP eval, possible MRI OP)
#Slide to ground today
-CK wnl
-fall precautions
-PT eval
-CM consultation re: rehab/placement options
#Paroxysmal atrial fibrillation
-Eliquis
-Pharmacy to perform formal med rec tomorrow
#Essential hypertension
#Hypothyroidism
#COPD, stable
#Depression
#Prior CVA
DVT proph - SCDs, on Eliquis
Code status - DNR as per the wishes, discussion with daughter and the patient today at bedside (with daughter on the phone).
[2025-07-21 23:10] LABS: Urine Character Cloudy (Clear)
[2025-07-21 23:17] LABS: Urine Red Blood Cell 0-2 /HPF (0-2); Urine White Cell 70-80 /HPF (0-5)
[2025-07-22 00:37] VITALS: BP 155/107; BMI 35.6
--- NOTE | 2025-07-22 01:00 | PTCARENOTE ---
Pt. arrived from E.D., awake, alert, forgetful, ambulated from stretcher to bed, bed alarm intact, call lozano within reach.
[2025-07-22] MEDS: ELIQUIS PO (01:28)
[2025-07-22 06:56] LABS: Hematocrit 36.0 % (37.0-47.0); Hemoglobin 11.4 g/dL (12.0-16.0); Mean Corp Hgb Conc. 31.7 g/dL (33.0-37.0); Mean Corpuscular Volume 91.8 fL (81.0-99.0); Platelet Count 223 10^3/uL (130-400); Red Cell Dist. Width 14.6 % (11.5-14.5)
[2025-07-22 07:02] LABS: Blood Urea Nitrogen 9 mg/dl (7-17); Calcium 9.1 mg/dl (8.4-10.2); Carbon Dioxide 27 mmol/L (22-30); Chloride 105 mmol/L (98-107); Estimated Creatinine Clearance 73 ml/min; Glucose 107 mg/dl (70-99); Potassium 4.3 mmol/L (3.5-5.1); Sodium 137 mmol/L (135-145); eGFR > 60.00
[2025-07-22 07:15] VITALS: BP 89/54
[2025-07-22] MEDS: VITAMIN B-12 1000 MCG PO (08:26)
[2025-07-22] MEDS: ZOLOFT 150 MG PO (08:26)
[2025-07-22] MEDS: LOW STRENGTH ASPIRIN 81 MG PO (08:27)
[2025-07-22] MEDS: ULTRAM 50 MG PO ×2 (08:27→20:16)
[2025-07-22] MEDS: ELIQUIS 5 MG PO ×2 (08:27→19:47)
[2025-07-22] MEDS: LIDOCAINE 4% PATCH 1 PATCH TOPICAL (08:28)
[2025-07-22 09:25] VITALS: BP 100/64; PULSE 73; O2SAT 95
--- NOTE | 2025-07-22 12:17 | W.PN.HOSP.TC ---
Today's Communication/Plan
-
Monitor vital signs and see plan
PT evaluation, likely will need rehab
Discussed with daughter
Await urine culture
Start Hiprex for now
med rec; RN aware
Assessment / Plan
Assessment / Plan
General: Well Developed, Well Nourished, No Apparent Distress, Comfortable and Conversant
HEENT: NormoCephalic and Anicteric
Respiratory: Clear
Cardiac: S1/S2 and Regular Rhythm
GI: Soft, Non Tender and Non Distended
Musculoskeletal: No Edema
Psych: Calm
Left shoulder pain for 2 weeks, concern for rotator cuff injury
-X-ray w/o acute findings - Moderate degenerative changes of the acromioclavicular and glenohumeral joints.
-Tylenol, Lido patch, prn tramadol
-PT eval
-cont w OP eval with Ortho (will require OP eval, possible MRI OP)
Ambulatory dysfunction
Slide to the ground
-CK wnl
-fall precautions
-PT eval
Likely will need rehab
Pyuria
History of UTI
She does have multidrug-resistant organism so will not treat unless she has symptoms. This was also addressed by her PCP outpatient
#Paroxysmal atrial fibrillation
-Eliquis
#Essential hypertension
#Hypothyroidism
#COPD, stable
#Depression
#Prior CVA
cognitive impairment
follows up with neurology outpatient
has neuropsych eval next month
DVT proph - SCDs, on Eliquis
Med rec pending; RN aware
Discussed with daughter
Code status - DNR as per the wishes, discussion with daughter
Anticipated Discharge: Within 24 hours
Subjective/Interval History
-
Date of Service: July 22, 2025
has pain
Objective Data
-
Labs:
Laboratory Results
07/22/25
05:58
WBC 5.9
Hgb 11.4 L
Hct 36.0 L
Plt Count 223
Sodium 137
Potassium 4.3
Chloride 105
Carbon Dioxide 27
BUN 9
Creatinine 0.6
Glucose 107 H
Calcium 9.1
Vital Signs:
Vital Signs
Temp Pulse Resp BP Pulse Ox
97.9 F 73 16 89/54 95
07/22/25 07:15 07/22/25 07:15 07/22/25 07:15 07/22/25 07:15 07/22/25 07:15
[2025-07-22] MEDS: LMX 4 1 APPLIC TOPICAL (13:35)
--- NOTE | 2025-07-22 13:59 | CM ---
retail training manager reviewed patient's chart and met with patient and spoke with patient's daughter, Kassy by phone, patient lives in a condo no steps to enter, patient lives alone, is independent with adl's and uses a cane occasionally, patient has a
caregiver one day a week for 2 hours, recommendation is for skilled placement and [facility] has been selected, referral sent, [facility] and [facility] reviewed as back up plan. Daughter would like to have her mother in skilled placement and then
discharge to home and increase career technical supervisor services in home.
PCP: Dr. Hilton
Pharmacy: [facility]
Plan; Skilled placement hopefully at [facility].
[2025-07-22 15:15] VITALS: BP 117/88
[2025-07-22] MEDS: HIPREX 1 GRAM PO (19:47)
[2025-07-22] MEDS: REMOVE LIDOCAINE PATCH 1 PATCH REMOVE (19:47)
[2025-07-22 23:33] VITALS: BP 94/56
[2025-07-23] MEDS: SYNTHROID 50 MCG PO (05:11)
[2025-07-23 07:05] VITALS: BP 162/64
[2025-07-23 07:52] LABS: Hematocrit 36.5 % (37.0-47.0); Hemoglobin 11.4 g/dL (12.0-16.0); Mean Corp Hgb Conc. 31.2 g/dL (33.0-37.0); Mean Corpuscular Volume 92.6 fL (81.0-99.0); Nucleated Red Blood Cells % 0 %; Platelet Count 214 10^3/uL (130-400); Red Cell Dist. Width 14.5 % (11.5-14.5)
--- NOTE | 2025-07-23 08:47 | W.PN.HOSP.TC ---
Today's Communication/Plan
-
Discharge to SNF today
Assessment / Plan
Assessment / Plan
Impression:
The patient is an 80-year-old female who presents to the ED due to left shoulder pain that started approximately 2 weeks earlier, and has been worsening, reducing her ROM and movement. This morning, she rolled off her sofa while attempting to stand,
landed on her buttocks without striking her head. She was unable to get up off the floor for 2 hours, before contacting her daughter via phone for assistance. The pain was significant enough to impede her movement, stating 'I couldn't move it,' and
has not been relieved by any self-administered treatments. The patient is not taking pain medication, but typically uses acetaminophen. She was advised to consider an orthopedic consultation for ongoing issues in the past. She saw her PCP last night
who recommended [facility]. The patient's daughter discussed with ED provider that patient has a new diagnosis of dementia. She lives alone, and daughter is not living nearby, and is concerned pt is unsafe to be home, and may require assisted living.
Of note, she had a urinalysis performed this past week by pt's PCP, and culture is pending at this time. Daughter discussed that PCP did not want to start oral abx yet, given prior hx of multiple positive UA and no growth. Pt denies active urinary
symptoms currently.
Urine culture shows E. coli, will start 3-day course of Ceftin
Assessment/plan:
Left shoulder pain (2 weeks), concern for rotator cuff injury
X-ray: No acute findings; moderate degenerative changes of the acromioclavicular and glenohumeral joints
Analgesia: Tylenol, lidocaine patch, PRN tramadol
Physical therapy evaluation
Continue outpatient orthopedic evaluation (may require MRI)
Ambulatory dysfunction
Recent slide to the ground
CK within normal limits
Fall precautions
Physical therapy evaluation
Likely will need rehab
UTI
History of UTI
Known multidrug-resistant organism.
Urine culture E. coli, will start Ceftin for 3 days
Paroxysmal atrial fibrillation
Continue Eliquis
Essential hypertension
Continue current management
Hypothyroidism
Continue current management
COPD (stable)
Continue current management
Depression
Continue current management
Prior CVA
Continue aspirin/Eliquis
Cognitive impairment
Follows with neurology outpatient
Neuropsych evaluation scheduled next month
DVT prophylaxis
Eliquis
Code status
DNR per patient�s wishes; discussed with daughter by admitting team.
Diet: cardiac diet
Family communication: Discussed with daughter on the phone
Physical therapy recommendations: Discharge to SNF.
Disposition:Discharge to SNF today.
Total time spent on today's encounter was 55 minutes which included time spent in counseling the patient/family regarding diagnosis and treatment plan as listed above, goals of care, and symptom management. Case was discussed with nursing staff,
specialists, and care coordinators/case management. All labs and imaging personally reviewed by me. Remainder the time spent in detailed review of previous records, lab data, imaging, and other medical provider documentation.
Part of this note was created using voice recognition system. Occasional wrong word or �sound alike� substitutions may have inadvertently occurred due to the inherent limitations of voice recognition software. If noted kindly bring it to my
attention for correction.
Anticipated Discharge: Today
Subjective/Interval History
-
Date of Service: July 23, 2025
Patient seen and examined at bedside, still complaining of left shoulder pain, denies any chest pain or shortness of breath, no abdominal pain, no nausea, no vomiting, no diarrhea or constipation.
Objective Data
-
Labs:
Laboratory Results
07/23/25
07:19
WBC 7.7
Hgb 11.4 L
Hct 36.5 L
Plt Count 214
Sodium Pending
Potassium Pending
Chloride Pending
Carbon Dioxide Pending
BUN Pending
Creatinine Pending
Glucose Pending
Calcium Pending
Vital Signs:
Vital Signs
Temp Pulse Resp BP Pulse Ox
97.7 F 70 16 162/64 97
07/23/25 07:05 07/23/25 07:05 07/23/25 07:05 07/23/25 07:05 07/23/25 07:05
I&O
07/22/25 07/23/25 07/24/25
06:59 06:59 06:59
Intake Total 360 / 360
Balance 360 / 360
Physical Exam
-
General: Well Developed, Well Nourished, No Apparent Distress and Comfortable
HEENT: Normocephalic, Atraumatic, Moist Mucous Membranes, No Ptosis, PERRLA and Nose Appears Normal
Respiratory: Clear to Auscultation and Non Labored Respirations
Cardiac: Regular Rhythm and S1/S2
Breast: Deferred by me
GI: Soft, Nontender, Nondistended and Normal Bowel Sounds
Genito-urinary: No Costovertebral Tender
Musculoskeletal: No Clubbing and Other (Left shoulder tender)
Skin: Warm
Neuro: Awake, Alert and No Motor Deficits
Psych: Calm and Other (Memory impaired)
Data Reviewed
-
Diagnostic Radiology: Image personally visualized and interpreted and Report Reviewed by me
CT Scan: Image personally visualized and interpreted and Report Reviewed by me
Ultrasound: Image personally visualized and interpreted and Report Reviewed by me
MRI: Image personally visualized and interpreted and Report Reviewed by me
Medical Tests (Nuc Med, Echo etc): Image personally visualized and interpreted and Report Reviewed by me
Labs: Labs Reviewed by me
Old Records: Reviewed
[2025-07-23 08:54] LABS: Blood Urea Nitrogen 18 mg/dl (7-17); Calcium 9.1 mg/dl (8.4-10.2); Carbon Dioxide 27 mmol/L (22-30); Chloride 101 mmol/L (98-107); Estimated Creatinine Clearance 63 ml/min; Glucose 96 mg/dl (70-99); Potassium 4.4 mmol/L (3.5-5.1); Sodium 135 mmol/L (135-145); eGFR > 60.00
[2025-07-23] MEDS: VITAMIN B-12 1000 MCG PO (09:26)
[2025-07-23] MEDS: ELIQUIS 5 MG PO (09:27)
[2025-07-23] MEDS: ZOLOFT 150 MG PO (09:27)
[2025-07-23] MEDS: LOW STRENGTH ASPIRIN 81 MG PO (09:28)
[2025-07-23] MEDS: HIPREX 1 GRAM PO (09:28)
[2025-07-23] MEDS: LIDOCAINE 4% PATCH 1 PATCH TOPICAL (09:29)
--- NOTE | 2025-07-23 11:15 | W.DCSUMMARY ---
Discharge Summary
Discharge Data
Date of Admission: 07/21/25
Date of Discharge: 07/23/25
Total time spent discharging patient (in min): 40
-
Pending Results: No
Hospital Course
Hospital course
The patient is an 80-year-old female who presents to the ED due to left shoulder pain that started approximately 2 weeks earlier, and has been worsening, reducing her ROM and movement. This morning, she rolled off her sofa while attempting to stand,
landed on her buttocks without striking her head. She was unable to get up off the floor for 2 hours, before contacting her daughter via phone for assistance. The pain was significant enough to impede her movement, stating 'I couldn't move it,' and
has not been relieved by any self-administered treatments. The patient is not taking pain medication, but typically uses acetaminophen. She was advised to consider an orthopedic consultation for ongoing issues in the past. She saw her PCP last night
who recommended [facility]. The patient's daughter discussed with ED provider that patient has a new diagnosis of dementia. She lives alone, and daughter is not living nearby, and is concerned pt is unsafe to be home, and may require assisted living.
Of note, she had a urinalysis performed this past week by pt's PCP, and culture is pending at this time. Daughter discussed that PCP did not want to start oral abx yet, given prior hx of multiple positive UA and no growth. Pt denies active urinary
symptoms currently.
Urine culture shows E. coli, will start 3-day course of Ceftin.
Seen by physical therapy recommended rehab
During hospitalization patient was treated from the following
Left shoulder pain (2 weeks), concern for rotator cuff injury
X-ray: No acute findings; moderate degenerative changes of the acromioclavicular and glenohumeral joints
Analgesia: Tylenol, lidocaine patch, PRN tramadol
Physical therapy evaluation
Continue outpatient orthopedic evaluation (may require MRI)
Ambulatory dysfunction
Recent slide to the ground
CK within normal limits
Fall precautions
Physical therapy evaluation
Likely will need rehab---> discharged to SNF today
UTI
History of UTI
Known multidrug-resistant organism.
Urine culture E. coli, will start Ceftin for 3 days
Paroxysmal atrial fibrillation
Continue Eliquis
Essential hypertension
Continue current management
Hypothyroidism
Continue current management
COPD (stable)
Continue current management
Depression
Continue current management
Prior CVA
Continue aspirin/Eliquis
Cognitive impairment
Follows with neurology outpatient
Neuropsych evaluation scheduled next month
DVT prophylaxis
Eliquis
Code status
DNR per patient�s wishes; discussed with daughter by admitting team.
Diet: cardiac diet
Family communication: Discussed with daughter on the phone
Physical therapy recommendations: Discharge to SNF.
Disposition:Discharge to SNF today.
Total time spent on today's encounter was 40 minutes which included time spent in counseling the patient/family regarding diagnosis and treatment plan as listed above, goals of care, and symptom management. Case was discussed with nursing staff,
specialists, and care coordinators/case management. All labs and imaging personally reviewed by me. Remainder the time spent in detailed review of previous records, lab data, imaging, and other medical provider documentation.
Anticipated Discharge: Today
Discharge Plan
-
Patient Disposition: Custodial/SNF
Discharge Diagnosis/Procedures: Left shoulder pain for 2 weeks, concern for rotator cuff injury.
Ambulatory dysfunction.
UTI
Diet: Low Cholesterol
Activity: With assistance and As tolerated
Other Services: PT and OT
Referrals:
Hao Snow MD [Active, Orthopedics] - in one to two weeks
Nelson Hilton MD [Family Provider, Family Practice]
Prescriptions:
New
bisacodyl 10 mg Suppository
10 mg MS [id number] PRN (Reason: constipation) Qty: 0 0RF
lidocaine 4 % Adhesive Patch,Medicated
1 patch topical DAILY Qty: 0 0RF
cefuroxime axetil 500 mg Tablet
500 mg PO BID 3 Days Qty: 0 0RF
Continued
cyanocobalamin (vitamin B-12) 1,000 MCG tablet
1,000 mcg PO DAILY
cholecalciferol (vitamin D3) 2,000 UNITS tablet
2,000 unit PO DAILY
levothyroxine 50 mcg Tablet
50 mcg PO MOTUWETHFRSA
magnesium oxide 500 mg magnesium Tablet
500 mg PO QPM
Eliquis 5 mg Tablet
5 mg PO BID Qty: 60 0RF
aspirin 81 mg tablet,chewable
81 mg PO DAILY
sertraline 150 mg Capsule
150 mg PO DAILY
acetaminophen 325 mg Tablet
650 mg PO Q4HPRN PRN (Reason: mild pain/GILLETTE/temp> 100.4F) Qty: 100 0RF
nifedipine 30 mg Tablet Extended Release
30 mg PO DAILY Qty: 30 0RF
methenamine hippurate 1 gram tablet
1 g PO BID
Discharge Orders:
Discharge Patient (As Directed); Ordered 07/23/25
Ordered By: Enid Fernandez
Discharge Date and Time
Print Language: MAURITANIAN
[2025-07-23] MEDS: CEFTIN 500 MG PO (13:18)
--- NOTE | 2025-07-23 14:05 | CM ---
Addendum entered by Palak Del Toro 07/23/25 15:41:
Call received from Radha at [facility]- auth approved by [employer] Instructor- approved 07/23-07/27, next review date 07/27, call for updates [phone].
Auth provided to Dylan Guerrero.
Call to pts daughter, aware of d/c and caregiver will transport patient around 4:30 p.m.
Dylan Guerrero
Report: [phone]

Original Note:
CM reviewed chart, patient seen bedside, aware of d.c plan to SNF today.
Call to patients daughter, agreeable to Dylan Guerrero, will have patients caregiver transport her to SNF.
Auth submitted to [facility]- sent to [employer] Instructor for review as pt ambulating 50 ftx2, pending auth #[id number].
Update to Dylan Guerrero with pending auth.
CM will continue to follow for all d/c planning needs.
Plan; Dylan Guerrero pending auth
[2025-07-23 15:00] VITALS: BP 158/69
== END 2025-07-23 17:44 ==
LOC: 4 WEST ACU 19:49
PROVIDERS: Internal Medicine; Physician Assistant; ADMITTING PHYSICIAN Internal Medicine; ATTENDING PHYSICIAN General Practice; EMERGENCY PHYSICIAN Student in an Organized Health Care Education/Training Program; FAMILY PHYSICIAN Family Medicine
DX: M25.512 Pain in left shoulder (principal); N39.0 Urinary tract infection, site not specified; B96.20 Unspecified Escherichia coli [E. coli] as the cause of diseases classified elsewhere; I48.0 Paroxysmal atrial fibrillation; E03.9 Hypothyroidism, unspecified; J44.9 Chronic obstructive pulmonary disease, unspecified; F32.A Depression, unspecified; R26.2 Difficulty in walking, not elsewhere classified; E66.01 Morbid (severe) obesity due to excess calories; F03.93 Unspecified dementia, unspecified severity, with mood disturbance; I10 Essential (primary) hypertension; E78.00 Pure hypercholesterolemia, unspecified; M19.012 Primary osteoarthritis, left shoulder; Z66 Do not resuscitate; Z68.35 Body mass index [BMI] 35.0-35.9, adult; Z79.01 Long term (current) use of anticoagulants; Z79.899 Other long term (current) drug therapy; Z86.73 Personal history of transient ischemic attack (TIA), and cerebral infarction without residual deficits; Z87.440 Personal history of urinary (tract) infections; Z87.891 Personal history of nicotine dependence; Z60.2 Problems related to living alone; Z96.651 Presence of right artificial knee joint
CPT/HCPCS: 70450; 73030; 80048; 80053; 81003; 81015; 82550; 85025; 85027; 87077; 87086; 87186; 93005; 96374; 97116; 97162; 97167; 99285; G0378